=== PATIENT | female | born 1995 | race Caucasian/White ===

== ENCOUNTER 2017-10-31 16:59 | Emergency (ER) | payer OTHER ==
--- NOTE | 2017-10-31 17:43 | ED ---
General Adult HPI - General Chief complaint: Abdominal Pain Stated complaint: , pressure Time Seen by Provider: 10/31/17 17:20 Source: patient, RN notes reviewed Mode of arrival: ambulatory Limitations: no limitations - History of Present Illness Initial comments: 22 yo female presents to the ER with cc of pelvic pressure in . Patient states she is about 19 weeks . She has not had any care in this . She states she started to develop a lot of pelvic pressure today. She is a . She denies any vaginal bleeding or discharge. She denies any cough cold. There is been no nausea vomiting. She was concerned due to her continued symptoms so she thought that she should be evaluated.Patient denies any recent fever, chills, shortness of breath, chest pain, back pain, nausea vomiting, numbness or tingling, dysuria or hematuria, constipation or diarrhea, headaches or visual changes, or any other current symptoms. - Related Data Home Medications Medication Instructions Recorded Confirmed Nec-Jioz-Schbv Acid 1 cap PO DAILY 10/31/17 10/31/17 [-U Capsule (formulary)] Allergies Allergy/AdvReac Type Severity Reaction Status Date / Time No Known Allergies Allergy Verified 10/31/17 17:23 Review of Systems ROS Statement: Those systems with pertinent positive or pertinent negative responses have been documented in the HPI. ROS Other: All systems not noted in ROS Statement are negative. Past Medical History Past Medical History: No Reported History History of Any Multi-Drug Resistant Organisms: None Reported Past Surgical History: No Surgical Hx Reported Past Anesthesia/Blood Transfusion Reactions: No Reported Reaction Past Psychological History: No Psychological Hx Reported Smoking Status: Never smoker Past Alcohol Use History: None Reported Past Drug Use History: None Reported - Past Family History Mother Family Medical History: No Reported History General Exam - General Exam Comments Initial Comments: General: The patient is awake and alert, in no distress, and does not appear acutely ill. Eye: Pupils are equal, round and reactive to light, extra-ocular movements are intact; there is normal conjunctiva bilaterally. No signs of icterus. Ears, nose, mouth and throat: There are moist mucous membranes. Neck: The neck is supple, there is no tenderness. Cardiovascular: There is a regular rate and rhythm. No murmur, rub or gallop is appreciated. Respiratory: Lungs are clear to auscultation, respirations are non-labored, breath sounds are equal. No wheezes, stridor, rales, or rhonchi. Gastrointestinal: Soft, non-distended, non-tender abdomen without masses or organomegaly noted. There is no rebound or guarding present. No CVA tenderness. Bowel sounds are unremarkable. Back: There is no tenderness to palpation in the midline. There is no obvious deformity. No rashes noted. Musculoskeletal: Normal ROM, no tenderness, There is no pedal edema. There is no calf tenderness or swelling. Sensation intact. Pulses equal bilaterally 2+. Neurological: CN II-XII intact, There are no obvious motor or sensory deficits. Coordination appears grossly intact. Speech is normal. Skin: Skin is warm and dry and no rashes or lesions are noted. Psychiatric: Cooperative, appropriate mood & affect, normal judgment. Limitations: no limitations Course Vital Signs 10/31/17 17:07 Temperature 98.2 F Pulse Rate 70 Respiratory 16 Rate Blood Pressure 125/59 O2 Sat by Pulse 99 Oximetry Medical Decision Making - Medical Decision Making 22-year-old female presents for pelvic pressure in . At this time patient's lab work has been reviewed. As well as ultrasound. At this time we discussed continued follow-up with the [employer]. We will send urine for culture. Discussed return parameters all questions. Patient stated that she understood and she is agreement this plan. At this time patient will be discharged. - Lab Data Result diagrams: 10/31/17 17:55 10/31/17 18:25 Lab Results 10/31/17 10/31/17 10/31/17 Range/Units 17:55 18:03 18:25 WBC 8.0 (4.0-11.0) k/uL RBC 4.46 (3.80-5.40) m/uL Hgb 13.4 (11.4-16.0) gm/dL Hct 38.5 (34.0-46.0) % MCV 86.4 (80.0-100.0) fL MCH 30.0 (25.0-35.0) pg MCHC 34.8 (31.0-37.0) g/dL RDW 14.1 (11.5-15.5) % Plt Count 301 (150-450) k/uL Neutrophils % 82 % Lymphocytes % 12 % Monocytes % 3 % Eosinophils % 1 % Basophils % 0 % Neutrophils # 6.5 (1.3-7.7) k/uL Lymphocytes # 1.0 (1.0-4.8) k/uL Monocytes # 0.3 (0-1.0) k/uL Eosinophils # 0.1 (0-0.7) k/uL Basophils # 0.0 (0-0.2) k/uL Sodium 136 L (137-145) mmol/L Potassium 4.2 (3.5-5.1) mmol/L Chloride 103 (98-107) mmol/L Carbon Dioxide 22 (22-30) mmol/L Anion Gap 11 mmol/L BUN 8 (7-17) mg/dL Creatinine 0.52 (0.52-1.04) mg/dL Est GFR (MDRD) Af Amer >60 (>60 ml/min/1.73 sqM) Est GFR (MDRD) Non-Af >60 (>60 ml/min/1.73 sqM) Glucose 105 H (74-99) mg/dL Calcium 9.6 (8.4-10.2) mg/dL Total Bilirubin 0.2 (0.2-1.3) mg/dL AST 18 (14-36) U/L ALT 31 (9-52) U/L Alkaline Phosphatase 85 (38-126) U/L Total Protein 7.2 (6.3-8.2) g/dL Albumin 3.9 (3.5-5.0) g/dL Urine Color [place] Yellow Urine Appearance Clear (Clear) Urine pH 6.0 (5.0-8.0) Ur Specific [place] 1.005 (1.001-1.035) Urine Protein Negative (Negative) Urine Glucose (UA) Negative (Negative) Urine Ketones Negative (Negative) Urine Blood Small H (Negative) Urine Nitrite Negative (Negative) Urine Bilirubin Negative (Negative) Urine Urobilinogen <2.0 (<2.0) mg/dL Ur Leukocyte Esterase Trace H (Negative) Urine RBC 4 (0-5) /hpf Urine WBC 6 H (0-5) /hpf Ur Squamous Epith Cells 1 (0-4) /hpf Urine Mucus Rare H (None) /hpf - Radiology Data Radiology results: report reviewed, image reviewed Disposition Clinical Impression: Abdominal pain affecting Disposition: HOME SELF-CARE Condition: Stable Instructions: Abdominal Pain in (ED) Additional Instructions: Please use medication as discussed. Please follow up with family doctor if symptoms have not improved over the next two days. Please return to the emergency room if your symptoms increase or worsen or for any other concerns. Referrals: Idalmis Chang MD [STAFF PHYSICIAN] - 1-2 days Time of Disposition: 19:19
[2017-10-31 18:10] LABS: Basophils % (A) 0 %; Eosinophils # (A) 0.1 k/uL (0-0.7); Eosinophils % (A) 1 %; HCT 38.5 % (34.0-46.0); HGB 13.4 gm/dL (11.4-16.0); Lymphocytes % (A) 12 %; MCHC 34.8 g/dL (31.0-37.0); MCV 86.4 fL (80.0-100.0); Monocytes # (A) 0.3 k/uL (0-1.0); Monocytes % (A) 3 %; Neutrophils # (A) 6.5 k/uL (1.3-7.7); Neutrophils % (A) 82 %; Platelet Count 301 k/uL (150-450); RBC 4.46 m/uL (3.80-5.40); RDW 14.1 % (11.5-15.5)
[2017-10-31 18:12] LABS: Appearance,Urine Clear (Clear); Bilirubin,Urine Negative (Negative); Blood,Urine Small (Negative); Color,Urine Light Yellow; Glucose,Urine (UA) Negative (Negative); Ketones,Urine Negative (Negative); Leukocyte Esterase,Urine Trace (Negative); Mucus,Urine Rare /hpf; Nitrite,Urine Negative (Negative); Protein,Urine Negative (Negative); RBC,Urine 4 /hpf (0-5); Specific Gravity,Urine 1.005 (1.001-1.035); Squamous Epithelial Cell,Urine 1 /hpf (0-4); Urobilinogen,Urine <2.0 mg/dL (<2.0); WBC,Urine 6 /hpf (0-5)
[2017-10-31 19:02] LABS: ALT 31 U/L (9-52); AST 18 U/L (14-36); Albumin 3.9 g/dL (3.5-5.0); Alkaline Phosphatase 85 U/L (38-126); Anion Gap 11 mmol/L; Blood Urea Nitrogen 8 mg/dL (7-17); Calcium 9.6 mg/dL (8.4-10.2); Carbon Dioxide 22 mmol/L (22-30); Chloride 103 mmol/L (98-107); Glucose 105 mg/dL (74-99); Potassium 4.2 mmol/L (3.5-5.1); Sodium 136 mmol/L (137-145); Total Bilirubin 0.2 mg/dL (0.2-1.3); Total Protein 7.2 g/dL (6.3-8.2)
--- NOTE | 2017-10-31 19:12 | US ---
EXAMINATION TYPE: US OB >= 14 wk fetus DATE OF EXAM: 10/31/2017 COMPARISON: None CLINICAL HISTORY: Pain TECHNIQUE: Transabdominal (TA) GESTATIONAL AGE / DATING Physician Established: Not yet Dates by LMP: (19 weeks/1 days) EDC: 03/26/2018 Dates by First Scan: No previous this is first scan Dates by Current Scan: (19 weeks/2 days) EDC: 03/25/2018 Beta HCG (if available): Not available at this time SURVEY IUP: Single PLACENTA: Anterior PREVIA: No Previa SHIRA: 11.0 cm Normal CERVICAL LENGTH (transabdominal: norm > 3.0cm): 3.3 cm BIOMETRY PRESENTATION: Breech LIE: Longitudinal BPD: 4.34 cm 19 weeks / 1 days HC: 16.71 cm 19 weeks / 3 days AC: 14.89 cm 20 weeks / 1 days FL: 3.08 cm 19 weeks / 4 days ESTIMATED WEIGHT IN GRAMS: 313.36 grams ESTIMATED WEIGHT IN LBS/OZ: 0 lbs. 11 oz. WEIGHT PERCENTAGE BASED ON ESTABLISHED DATES: 82.2% HC/AC: 1.12 Normal FL/AC: 20.67 Normal HEART RATE: 142 bpm RHYTHM: Normal Viable IUP, measurements concordant with dates. IMPRESSION: No complicating process seen. This is the first exam.
[2017-10-31 19:25] VITALS: BP 118/58; PULSE 65; RESP 18; TEMP 98.7
[2017-10-31 19:46] LABS: HCG,Quantitative Serum 18202.9 mIU/mL
== END 2017-10-31 19:23 | disposition home or self-care (01) ==
LOC: EC 16:59
DX: O26.892 Other specified pregnancy related conditions, second trimester (principal); R10.9 Unspecified abdominal pain; Z3A.19 19 weeks gestation of pregnancy
CPT/HCPCS: 36415; 76805; 80053; 81001; 84702; 85025; 86900; 86901; 87086; 99284

== ENCOUNTER 2018-09-30 10:00 | Observation (INO) | payer OTHER ==
[2018-09-30] MEDS ORDERED: SODIUM CHLORIDE 0.9% 500 ML 500 ML IV STA (10:31)
--- NOTE | 2018-09-30 10:34 | ED ---
General Adult HPI - General Chief complaint: Abdominal Pain Stated complaint: Abd Pain,Back Pain Time Seen by Provider: 09/30/18 10:20 Source: patient, RN notes reviewed, old records reviewed Mode of arrival: ambulatory Limitations: no limitations - History of Present Illness Initial comments: 23-year-old female presenting for evaluation of suprapubic pain, bilateral flank pain and fever. Patient had temperature of 101 yesterday. She states her symptoms are similar to previous kidney infection. Denies any vaginal discharge or vaginal bleeding. Denies current . Denies dysuria. Denies vomiting or diarrhea. She is having normal bowel movements. Denies cough or URI symptoms. - Related Data Home Medications Medication Instructions Recorded Confirmed No Known Home Medications 09/30/18 09/30/18 Allergies Allergy/AdvReac Type Severity Reaction Status Date / Time No Known Allergies Allergy Verified 09/30/18 11:00 Review of Systems ROS Statement: Those systems with pertinent positive or pertinent negative responses have been documented in the HPI. ROS Other: All systems not noted in ROS Statement are negative. Past Medical History Past Medical History: No Reported History History of Any Multi-Drug Resistant Organisms: None Reported Past Surgical History: No Surgical Hx Reported Past Anesthesia/Blood Transfusion Reactions: No Reported Reaction Past Psychological History: No Psychological Hx Reported Smoking Status: Never smoker Past Alcohol Use History: None Reported Past Drug Use History: None Reported - Past Family History Mother Family Medical History: No Reported History General Exam Limitations: no limitations General appearance: alert Head exam: Present: atraumatic, normocephalic Eye exam: Present: normal appearance, PERRL ENT exam: Present: normal exam Neck exam: Present: normal inspection. Absent: tenderness, meningismus Respiratory exam: Present: normal lung sounds bilaterally, respiratory distress Cardiovascular Exam: Present: regular rate, normal rhythm GI/Abdominal exam: Present: soft, tenderness (Mild suprapubic and right lower quadrant tenderness). Absent: distended Extremities exam: Present: normal inspection Back exam: Present: CVA tenderness (R), CVA tenderness (L) Neurological exam: Present: alert, oriented X3, CN II-XII intact. Absent: motor sensory deficit Psychiatric exam: Present: normal affect, normal mood Skin exam: Present: warm, dry, intact. Absent: cyanosis, diaphoretic Course Vital Signs 09/30/18 09/30/18 10:03 12:45 Temperature 98.1 F 98.2 F Pulse Rate 89 64 Respiratory 20 18 Rate Blood Pressure 112/70 111/59 O2 Sat by Pulse 99 100 Oximetry Medical Decision Making - Medical Decision Making 23-year-old female with abdominal pain, concern for UTI and kidney infection. Patient does have some right upper quadrant tenderness and has had gallbladder issues in the past. Laboratory studies reveal a white count 10.4, AST ALT and alkaline phosphatase are elevated, she was urinary tract infection with 62 red cells and bacteria. Cultures pending. Ultrasound of the gallbladder is obtained which shows cholelithiasis, no dilatation of the gallbladder wall or common bile duct. Case is discussed with Dr. Chavez, patient will be admitted to internal medicine with general surgery on consult. Diagnosis: Symptomatically lithiasis, transaminitis, UTI - Lab Data Result diagrams: 09/30/18 10:11 09/30/18 10:11 Lab Results 09/30/18 09/30/18 09/30/18 Range/Units 10:11 10:11 10:11 WBC 10.4 (3.8-10.6) k/uL RBC 4.55 (3.80-5.40) m/uL Hgb 11.3 L (11.4-16.0) gm/dL Hct 35.4 (34.0-46.0) % MCV 77.7 L (80.0-100.0) fL MCH 24.8 L (25.0-35.0) pg MCHC 31.9 (31.0-37.0) g/dL RDW 14.9 (11.5-15.5) % Plt Count 377 (150-450) k/uL Neutrophils % 84 % Lymphocytes % 9 % Monocytes % 5 % Eosinophils % 1 % Basophils % 0 % Neutrophils # 8.7 H (1.3-7.7) k/uL Lymphocytes # 0.9 L (1.0-4.8) k/uL Monocytes # 0.5 (0-1.0) k/uL Eosinophils # 0.1 (0-0.7) k/uL Basophils # 0.0 (0-0.2) k/uL Sodium 141 (137-145) mmol/L Potassium 4.0 (3.5-5.1) mmol/L Chloride 106 (98-107) mmol/L Carbon Dioxide 23 (22-30) mmol/L Anion Gap 12 mmol/L BUN 15 (7-17) mg/dL Creatinine 0.69 (0.52-1.04) mg/dL Est GFR (CKD-EPI)AfAm >90 (>60 ml/min/1.73 sqM) Est GFR (CKD-EPI)NonAf >90 (>60 ml/min/1.73 sqM) Glucose 99 (74-99) mg/dL Calcium 9.5 (8.4-10.2) mg/dL Total Bilirubin 1.0 (0.2-1.3) mg/dL AST 133 H (14-36) U/L ALT 147 H (9-52) U/L Alkaline Phosphatase 165 H (38-126) U/L Total Protein 7.9 (6.3-8.2) g/dL Albumin 4.3 (3.5-5.0) g/dL Amylase 46 (30-110) U/L Lipase 37 (23-300) U/L Urine Color [place] Urine Appearance Cloudy H (Clear) Urine pH 6.0 (5.0-8.0) Ur Specific [place] 1.026 (1.001-1.035) Urine Protein 1+ H (Negative) Urine Glucose (UA) Negative (Negative) Urine Ketones Negative (Negative) Urine Blood Small H (Negative) Urine Nitrite Negative (Negative) Urine Bilirubin Negative (Negative) Urine Urobilinogen 4.0 (<2.0) mg/dL Ur Leukocyte Esterase Large H (Negative) Urine RBC 6 H (0-5) /hpf Urine WBC 62 H (0-5) /hpf Ur Squamous Epith Cells 16 H (0-4) /hpf Urine Bacteria Occasional H (None) /hpf Urine Mucus Many H (None) /hpf Urine HCG, Qual (Not Detectd) 09/30/18 Range/Units 10:11 WBC (3.8-10.6) k/uL RBC (3.80-5.40) m/uL Hgb (11.4-16.0) gm/dL Hct (34.0-46.0) % MCV (80.0-100.0) fL MCH (25.0-35.0) pg MCHC (31.0-37.0) g/dL RDW (11.5-15.5) % Plt Count (150-450) k/uL Neutrophils % % Lymphocytes % % Monocytes % % Eosinophils % % Basophils % % Neutrophils # (1.3-7.7) k/uL Lymphocytes # (1.0-4.8) k/uL Monocytes # (0-1.0) k/uL Eosinophils # (0-0.7) k/uL Basophils # (0-0.2) k/uL Sodium (137-145) mmol/L Potassium (3.5-5.1) mmol/L Chloride (98-107) mmol/L Carbon Dioxide (22-30) mmol/L Anion Gap mmol/L BUN (7-17) mg/dL Creatinine (0.52-1.04) mg/dL Est GFR (CKD-EPI)AfAm (>60 ml/min/1.73 sqM) Est GFR (CKD-EPI)NonAf (>60 ml/min/1.73 sqM) Glucose (74-99) mg/dL Calcium (8.4-10.2) mg/dL Total Bilirubin (0.2-1.3) mg/dL AST (14-36) U/L ALT (9-52) U/L Alkaline Phosphatase (38-126) U/L Total Protein (6.3-8.2) g/dL Albumin (3.5-5.0) g/dL Amylase (30-110) U/L Lipase (23-300) U/L Urine Color Urine Appearance (Clear) Urine pH (5.0-8.0) Ur Specific [place] (1.001-1.035) Urine Protein (Negative) Urine Glucose (UA) (Negative) Urine Ketones (Negative) Urine Blood (Negative) Urine Nitrite (Negative) Urine Bilirubin (Negative) Urine Urobilinogen (<2.0) mg/dL Ur Leukocyte Esterase (Negative) Urine RBC (0-5) /hpf Urine WBC (0-5) /hpf Ur Squamous Epith Cells (0-4) /hpf Urine Bacteria (None) /hpf Urine Mucus (None) /hpf Urine HCG, Qual Not Detected (Not Detectd) Disposition Clinical Impression: Symptomatic cholelithiasis, Transaminitis Disposition: ADMITTED IP TO THIS [facility] Condition: Stable Is patient prescribed a controlled substance at d/c from ED?: No Referrals: None,Stated [Primary Care Provider] - 1-2 days Decision to Admit Reason: Admit from EC Decision Date: 09/30/18 Decision Time: 13:50
[2018-09-30] MEDS ORDERED: KETOROLAC 30 MG/ML 1 ML VIAL IVP STA (10:47)
[2018-09-30 11:08] LABS: Basophils % (A) 0 %; Eosinophils # (A) 0.1 k/uL (0-0.7); Eosinophils % (A) 1 %; HCT 35.4 % (34.0-46.0); HGB 11.3 gm/dL (11.4-16.0); Lymphocytes # (A) 0.9 k/uL (1.0-4.8); Lymphocytes % (A) 9 %; MCH 24.8 pg (25.0-35.0); MCHC 31.9 g/dL (31.0-37.0); MCV 77.7 fL (80.0-100.0); Mean Platelet Volume 6.6; Monocytes # (A) 0.5 k/uL (0-1.0); Monocytes % (A) 5 %; Neutrophils # (A) 8.7 k/uL (1.3-7.7); Neutrophils % (A) 84 %; Platelet Count 377 k/uL (150-450); RBC 4.55 m/uL (3.80-5.40); RDW 14.9 % (11.5-15.5); WBC 10.4 k/uL (3.8-10.6)
[2018-09-30 11:13] LABS: Appearance,Urine Cloudy (Clear); Bacteria,Urine Occasional /hpf; Bilirubin,Urine Negative (Negative); Blood,Urine Small (Negative); Color,Urine Orange; Glucose,Urine (UA) Negative (Negative); Ketones,Urine Negative (Negative); Leukocyte Esterase,Urine Large (Negative); Mucus,Urine Many /hpf; Nitrite,Urine Negative (Negative); Protein,Urine 1+ (Negative); RBC,Urine 6 /hpf (0-5); Specific Gravity,Urine 1.026 (1.001-1.035); Squamous Epithelial Cell,Urine 16 /hpf (0-4); WBC,Urine 62 /hpf (0-5)
[2018-09-30 11:19] LABS: ALT 147 U/L (9-52); AST 133 U/L (14-36); Albumin 4.3 g/dL (3.5-5.0); Alkaline Phosphatase 165 U/L (38-126); Amylase 46 U/L (30-110); Anion Gap 12 mmol/L; Blood Urea Nitrogen 15 mg/dL (7-17); Calcium 9.5 mg/dL (8.4-10.2); Carbon Dioxide 23 mmol/L (22-30); Chloride 106 mmol/L (98-107); Glucose 99 mg/dL (74-99); Lipase 37 U/L (23-300); Sodium 141 mmol/L (137-145); Total Protein 7.9 g/dL (6.3-8.2)
--- NOTE | 2018-09-30 12:41 | US ---
EXAMINATION TYPE: US gallbladder DATE OF EXAM: 09/30/2018 COMPARISON: US CLINICAL HISTORY: Pain. Pt states generalized ABD pain EXAM MEASUREMENTS: Liver Length: 16.0 cm Gallbladder Wall: 0.3 cm CBD: 0.3 cm Right Kidney: 10.1 x 3.8 x 4.3 cm Pancreas: wnl Liver: Cystic area seen left posterior lobe= 1.9 x 1.3 x 1.3 cm ?etiology Gallbladder: Multiple gallstones filling lumen Evidence for sonographic Galaviz's sign: No CBD: wnl Right Kidney: wnl IMPRESSION: 1. Uncomplicated cholelithiasis. 2. Hepatic cyst.
--- NOTE | 2018-09-30 12:42 | US ---
EXAMINATION TYPE: US transvaginal DATE OF EXAM: 09/30/2018 COMPARISON: OB only CLINICAL HISTORY: Pain. Pt states lower ABD pain TECHNIQUE: Transvaginal (TV). Transvaginal sonographic images of the pelvis were acquired. Date of LMP: 09/18/2018 EXAM MEASUREMENTS: Uterus: 10.7 x 4.2 x 5.3 cm Endometrial Stripe: 0.6 cm Right Ovary: 3.2 x 2.7 x 2.4 cm Left Ovary: 3.2 x 2.0 x 2.5 cm 1. Uterus: Anteverted wnl 2. Endometrium: wnl 3. Right Ovary: Dominant follicle= 1.7 x 1.7 x 1.9 cm 4. Left Ovary: wnl Spectral, color and waveform doppler imaging shows good arterial and venous flow within the ovaries ; there is no evidence for ovarian torsion. 5. Bilateral Adnexa: wnl 6. Posterior cul-de-sac: wnl IMPRESSION: 1. Dominant right ovarian follicle. Otherwise unremarkable study.
[2018-09-30] MEDS ORDERED: SODIUM CHLORIDE 0.9% 500 ML 500 ML IV ONE (13:50)
[2018-09-30] MEDS ORDERED: NALOXONE 0.4 MG/ML 1 ML VIAL IV PRN (13:51)
[2018-09-30] MEDS ORDERED: HYDROmorphone 1 MG/ML 1 ML SYRINGE IVP PRN (13:51)
[2018-09-30] MEDS: SODIUM CHLORIDE 0.9% 1,000 ML IV SCH ×3 (14:31→22:08)
--- NOTE | 2018-09-30 16:58 | P.HPIM ---
History of Present Illness Patient is a very pleasant 23-year-old female came in with complains of right lower quadrant abdominal pain 8/10 in severity has been going on for last 5 days progressively worsening. Patient denied any suprapubic pain patient does not have any costo-vertebral angle tenderness. Patient denied any fever chills. Ultrasound of the abdomen was obtained which showed cholelithiasis. No evidence of cholecystitis and on the ultrasound. Pelvic ultrasound was obtained, which showed normal ovarian follicle non uterus. I'll obtain a CAT scan of the abdomen after urine beta-hCG. Patient pain is mostly in the right lower quadrant. Patient does have mildly elevated liver enzymes as well which will be repeated tomorrow. General surgery was consulted. Patient was started on Rocephin because of abnormal uterine patient denied any dysuria, increased urinary frequency or urgency or suprapubic pain, patient urine has a significance, 7 epithelial cells consistent with contaminated urine sample. Abdominal pain is severe and that not related to food. On and off constant Review of Systems REVIEW OF SYSTEMS: CONSTITUTIONAL: No fever, no malaise, no fatigue. HEENT: No recent visual problems or hearing problems. Denied any sore throat. CARDIOVASCULAR: No chest pain, orthopnea, PND, no palpitations, no syncope. PULMONARY: No shortness of breath, no cough, no hemoptysis. GASTROINTESTINAL: As mentioned in HPI NEUROLOGICAL: No headaches, no weakness, no numbness. HEMATOLOGICAL: Denies any bleeding or petechiae. GENITOURINARY: Denies any burning micturition, frequency, or urgency. MUSCULOSKELETAL/RHEUMATOLOGICAL: Denies any joint pain, swelling, or any muscle pain. ENDOCRINE: Denies any polyuria or polydipsia. The rest of the 14-point review of systems is negative. Past Medical History Past Medical History: No Reported History Additional Past Medical History / Comment(s): past uti/kidney infection approx years ago(was hospitalized) History of Any Multi-Drug Resistant Organisms: None Reported Past Surgical History: No Surgical Hx Reported Additional Past Surgical History / Comment(s): no report of surguries,has never had general aa Past Anesthesia/Blood Transfusion Reactions: No Reported Reaction Additional Past Anesthesia/Blood Transfusion Reaction / Comment(s): has never had aa Smoking Status: Never smoker - Past Family History Father History Unknown: Yes Mother Family Medical History: No Reported History Additional Family Medical History / Comment(s): gallbladder issues Medications and Allergies Home Medications Medication Instructions Recorded Confirmed Type No Known Home Medications 09/30/18 09/30/18 History Allergies Allergy/AdvReac Type Severity Reaction Status Date / Time No Known Allergies Allergy Verified 09/30/18 11:00 Physical Exam Vitals: Vital Signs Temp Pulse Pulse Resp BP BP Pulse Ox 09/30/18 15:27 98.2 F 67 16 100/64 98 09/30/18 14:34 97.6 F 69 16 105/58 99 09/30/18 12:45 98.2 F 64 18 111/59 100 09/30/18 10:03 98.1 F 89 20 112/70 99 Intake and Output 09/30/18 09/30/18 09/30/18 06:59 14:59 22:59 Other: Weight 72.575 kg PHYSICAL EXAMINATION: GENERAL: The patient is alert and oriented x3, not in any acute distress. Well developed, well nourished. HEENT: Pupils are round and equally reacting to light. EOMI. No scleral icterus. No conjunctival pallor. Normocephalic, atraumatic. No pharyngeal erythema. No thyromegaly. CARDIOVASCULAR: S1 and S2 present. No murmurs, rubs, or gallops. PULMONARY: Chest is clear to auscultation, no wheezing or crackles. ABDOMEN: Soft, tenderness in the right lower quadrant MUSCULOSKELETAL: No joint swelling or deformity. EXTREMITIES: No cyanosis, clubbing, or pedal edema. NEUROLOGICAL: Gross neurological examination did not reveal any focal deficits. SKIN: No rashes. Results CBC & Chem 7: 09/30/18 10:11 09/30/18 10:11 Labs: Abnormal Lab Results - Last 24 Hours (Table) 09/30/18 09/30/18 09/30/18 Range/Units 10:11 10:11 10:11 Hgb 11.3 L (11.4-16.0) gm/dL MCV 77.7 L (80.0-100.0) fL MCH 24.8 L (25.0-35.0) pg Neutrophils # 8.7 H (1.3-7.7) k/uL Lymphocytes # 0.9 L (1.0-4.8) k/uL AST 133 H (14-36) U/L ALT 147 H (9-52) U/L Alkaline Phosphatase 165 H (38-126) U/L Urine Appearance Cloudy H (Clear) Urine Protein 1+ H (Negative) Urine Blood Small H (Negative) Ur Leukocyte Esterase Large H (Negative) Urine RBC 6 H (0-5) /hpf Urine WBC 62 H (0-5) /hpf Ur Squamous Epith Cells 16 H (0-4) /hpf Urine Bacteria Occasional H (None) /hpf Urine Mucus Many H (None) /hpf Thrombosis Risk Factor Assmnt - Choose All That Apply Any of the Below Risk Factors Present?: Yes Each Factor Represents 1 point: Obesity (BMI >25) Other Risk Factors: Yes Thrombosis Risk Factor Assessment Total Risk Factor Score: 1 Thrombosis Risk Factor Assessment Level: Low Risk Assessment and Plan Plan: -Right lower quadrant abdominal pain obtain a CAT scan of the abdomen DID SHOW CHOLELITHIASIS NOT SURE IF THIS IS AN INCIDENTAL FINDING ALTHOUGH PATIENT DOES HAVE ELEVATED AST ELEVATED ALKALINE PHOSPHATASE. WE'LL REPEAT THESE LIVER ENZYMES AGAIN TOMORROW. NEUROSURGERY WILL EVALUATE THE PATIENT. Abdominal pain is not typical for cholelithiasis -Mildly elevated liver enzymes Related to Cholelithiasis and Has Gallstone We' ll Repeat These Levels and Make Sure They're Not Going up Balloon Is 1.0 -Contaminated Urine Sample My Suspicion for Urinary Tract Infection Is Low since.Etiology of Her Abdominal Pain Is Not Clear Will Continue with Antibiotics for Now
[2018-09-30] MEDS: IOPAMIDOL-300 CONTRAST 30 ML VIAL (ORAL USE) PO PRN ×2 (17:07→17:59)
[2018-09-30] MEDS: PANTOPRAZOLE 40 MG/10 ML VIAL IVP SCH (17:08)
[2018-09-30] MEDS: KETOROLAC 30 MG/ML 1 ML VIAL IVP PRN (17:58)
--- NOTE | 2018-09-30 19:59 | P.GSCN ---
History of Present Illness Consult date: 09/30/18 History of present illness: Patient reports known history of gallstones 3 years ago. Abdominal pain had gone worse after the of her son 6 months ago. Patient's incision to the ER was from severe right upper quadrant and epigastric abdominal pain greater than 7-10. Since admission, pain improved. Patient also presents with elevated transaminases. Patient's family history of gallbladder disease. Recommend repeat liver enzymes. For elevated enzymes, then will need evaluation MRCP followed by GI for ERCP. Cholecystectomy potential as outpatient should liver enzymes normalized. Low-fat diet tonight. Past Medical History Past Medical History: No Reported History Additional Past Medical History / Comment(s): past uti/kidney infection approx years ago(was hospitalized) History of Any Multi-Drug Resistant Organisms: None Reported Past Surgical History: No Surgical Hx Reported Additional Past Surgical History / Comment(s): no report of surguries,has never had general aa Past Anesthesia/Blood Transfusion Reactions: No Reported Reaction Additional Past Anesthesia/Blood Transfusion Reaction / Comm: has never had aa Smoking Status: Never smoker - Past Family History Father History Unknown: Yes Mother Family Medical History: No Reported History Additional Family Medical History / Comment(s): gallbladder issues Medications and Allergies Home Medications Medication Instructions Recorded Confirmed Type No Known Home Medications 09/30/18 09/30/18 History Allergies Allergy/AdvReac Type Severity Reaction Status Date / Time No Known Allergies Allergy Verified 09/30/18 11:00 Surgical - Exam Vital Signs Temp Pulse Resp BP Pulse Ox 98.1 F 89 20 112/70 99 09/30/18 10:03 09/30/18 10:03 09/30/18 10:03 09/30/18 10:03 09/30/18 10:03 Results - Labs 09/30/18 10:11 09/30/18 10:11 Abnormal Lab Results - Last 24 Hours (Table) 09/30/18 09/30/18 09/30/18 Range/Units 10:11 10:11 10:11 Hgb 11.3 L (11.4-16.0) gm/dL MCV 77.7 L (80.0-100.0) fL MCH 24.8 L (25.0-35.0) pg Neutrophils # 8.7 H (1.3-7.7) k/uL Lymphocytes # 0.9 L (1.0-4.8) k/uL AST 133 H (14-36) U/L ALT 147 H (9-52) U/L Alkaline Phosphatase 165 H (38-126) U/L Urine Appearance Cloudy H (Clear) Urine Protein 1+ H (Negative) Urine Blood Small H (Negative) Ur Leukocyte Esterase Large H (Negative) Urine RBC 6 H (0-5) /hpf Urine WBC 62 H (0-5) /hpf Ur Squamous Epith Cells 16 H (0-4) /hpf Urine Bacteria Occasional H (None) /hpf Urine Mucus Many H (None) /hpf Microbiology - Last 24 Hours (Table) 09/30/18 10:11 Urine Culture - Preliminary Urine,Voided Diabetes panel 09/30/18 Range/Units 10:11 Sodium 141 (137-145) mmol/L Potassium 4.0 (3.5-5.1) mmol/L Chloride 106 (98-107) mmol/L Carbon Dioxide 23 (22-30) mmol/L BUN 15 (7-17) mg/dL Creatinine 0.69 (0.52-1.04) mg/dL Glucose 99 (74-99) mg/dL Calcium 9.5 (8.4-10.2) mg/dL AST 133 H (14-36) U/L ALT 147 H (9-52) U/L Alkaline Phosphatase 165 H (38-126) U/L Total Protein 7.9 (6.3-8.2) g/dL Albumin 4.3 (3.5-5.0) g/dL Calcium panel 09/30/18 Range/Units 10:11 Calcium 9.5 (8.4-10.2) mg/dL Albumin 4.3 (3.5-5.0) g/dL Pituitary panel 09/30/18 Range/Units 10:11 Sodium 141 (137-145) mmol/L Potassium 4.0 (3.5-5.1) mmol/L Chloride 106 (98-107) mmol/L Carbon Dioxide 23 (22-30) mmol/L BUN 15 (7-17) mg/dL Creatinine 0.69 (0.52-1.04) mg/dL Glucose 99 (74-99) mg/dL Calcium 9.5 (8.4-10.2) mg/dL Adrenal panel 12/05/18 Range/Units 10:11 Sodium 141 (137-145) mmol/L Potassium 4.0 (3.5-5.1) mmol/L Chloride 106 (98-107) mmol/L Carbon Dioxide 23 (22-30) mmol/L BUN 15 (7-17) mg/dL Creatinine 0.69 (0.52-1.04) mg/dL Glucose 99 (74-99) mg/dL Calcium 9.5 (8.4-10.2) mg/dL Total Bilirubin 1.0 (0.2-1.3) mg/dL AST 133 H (14-36) U/L ALT 147 H (9-52) U/L Alkaline Phosphatase 165 H (38-126) U/L Total Protein 7.9 (6.3-8.2) g/dL Albumin 4.3 (3.5-5.0) g/dL
--- NOTE | 2018-09-30 20:50 | CT ---
EXAMINATION TYPE: CT abdomen pelvis w con DATE OF EXAM: 09/30/2018 COMPARISON: None HISTORY: right sided abdominal pain CT DLP: 627.9 mGycm Automated exposure control for dose reduction was used. TECHNIQUE: Helical acquisition of images was performed from the lung bases through the pelvis. CONTRAST: Performed with Oral Contrast and with IV Contrast, patient injected with 100 mL of Isovue 300. FINDINGS: Lung bases are clear. There is no pleural effusion. Heart size is normal. Stomach appears normal. There are multiple cholesterol gallstones. Liver appears normal. Bile ducts are not dilated. Spleen a ppears normal. There is no pancreatic mass. There is no adrenal mass. Kidneys show satisfactory contrast opacification. There is some fullness of the renal collecting systems and more on the right side. Renal function appears normal. Bladder distends smoothly. Uterus is anteverted. There is no inguinal hernia. There is small amount o f free fluid in the cul-de-sac. There are no adnexal masses. There is minimal fat stranding in the om entum and mesenteric fat in the lower anterior abdomen. The terminal ileum appears normal. Cecum is i n a high position. The appendix appears normal. There is no sign of appendicitis. There is minimal wa ll thickening of some loops of small bowel at the midline lower abdomen above the uterine fundus. The re is tiny amount of fluid in the right paracolic gutter. There is no mesenteric adenopathy. I see no evidence of a bowel obstruction. IMPRESSION: THERE IS MILD FREE FLUID IN THE PELVIS. THERE IS SOME FAT STRANDING AND MILD WALL THICKENING OF SMALL BOWEL ADJACENT TO THE UTERINE FUNDUS. I WOULD CONSIDER POSSIBILITIES OF LOCALIZED INFLAMMATORY BOWEL DISEASE SUCH CROHN'S DISEASE. PID IS ALSO POSSIBLE.
[2018-10-01] MEDS: SODIUM CHLORIDE 0.9% 1,000 ML IV SCH ×2 (00:47→18:34)
[2018-10-01] MEDS: KETOROLAC 30 MG/ML 1 ML VIAL IVP PRN ×4 (04:01→21:31)
[2018-10-01 08:52] LABS: ALT 145 U/L (9-52); AST 100 U/L (14-36); Alkaline Phosphatase 147 U/L (38-126); Amylase 36 U/L (30-110); Anion Gap 5 mmol/L; Blood Urea Nitrogen 9 mg/dL (7-17); Calcium 8.5 mg/dL (8.4-10.2); Carbon Dioxide 24 mmol/L (22-30); Chloride 112 mmol/L (98-107); Glucose 84 mg/dL (74-99); Lipase 42 U/L (23-300); Potassium 4.1 mmol/L (3.5-5.1); Sodium 141 mmol/L (137-145); Total Bilirubin 0.5 mg/dL (0.2-1.3)
--- NOTE | 2018-10-01 09:16 | P.CONS ---
History of Present Illness - Reason for Consult Consult date: 10/01/18 elevated liver enzymes Requesting physician: Yomaira Miller - Chief Complaint Abdominal pain - History of Present Illness 23-year-old female 6 months admitted with acute abdominal pain right upper quadrant 2 days elevated liver enzymes with nausea and fever. Patient had heartburn type symptoms when she was but no significant abdominal pain. Ultrasound abdomen uncomplicated cholelithiasis. CBD within normal limits. CT abdomen mild free fluid in the pelvis and fat stranding and mild thickening of the small bowel adjacent to the uterine fundus possible localized IBD possible pelvic inflammatory disease. No personal a familial history of inflammatory bowel disease. Nice diarrhea. Denies any emesis medications he melena. No abnormal vaginal discharge. She has been afebrile. White count 10.4. Hemoglobin 11.3. Platelets 377. Total bilirubin 0.5-1.0. AST 100-133. ALT 145-147. AP 147-165. Lipase 37-42. LFTs have improved today. Abdominal pain improved but still present. History of IVDA, EtOH abuse, changes in medications, or hepatitis/liver disorders. Transvaginal ultrasound dominant right ovarian follicle otherwise unremarkable study. Review of Systems Constitutional: Denies fever, chills, sweats, weight gain, or loss. HEENT: Negative for migraines, blurred vision or loss, earaches, drainage, tinnitus, oral mucosal lesions, dysphagia, or odynophagia. CARDIAC: Negative for chest pain, arrhythmias, or palpitation. RESPIRATORY: Negative for shortness of breath, hemoptysis, cough, or sputum production. GI: See HPI for pertinent findings. : Negative for hematuria, urgency, frequency, polyuria, or dysuria. GYNc: Denies possibility of . Negative vaginal discharge. MUSCULOSKELETAL: Negative for muscle aches, swelling, arthritis, and arthralgias. NEUROLOGIC: Negative for stroke or TIA. ENDOCRINE: Negative for thyroid problems. SKIN: Negative for rash or itching. PSYCHIATRIC: Negative history for depression and anxiety Past Medical History Past Medical History: No Reported History Additional Past Medical History / Comment(s): past uti/kidney infection approx years ago(was hospitalized) History of Any Multi-Drug Resistant Organisms: None Reported Past Surgical History: No Surgical Hx Reported Additional Past Surgical History / Comment(s): no report of surguries,has never had general aa Past Anesthesia/Blood Transfusion Reactions: No Reported Reaction Additional Past Anesthesia/Blood Transfusion Reaction / Comm: has never had aa Smoking Status: Never smoker - Past Family History Father History Unknown: Yes Mother Family Medical History: No Reported History Additional Family Medical History / Comment(s): gallbladder issues Medications and Allergies Home Medications Medication Instructions Recorded Confirmed Type No Known Home Medications 09/30/18 09/30/18 History Allergies Allergy/AdvReac Type Severity Reaction Status Date / Time No Known Allergies Allergy Verified 09/30/18 11:00 Physical Exam Vitals: Vital Signs Temp Pulse Pulse Resp BP BP Pulse Ox 10/01/18 03:57 98.3 F 85 18 109/65 100 09/30/18 19:43 98.2 F 62 16 115/65 97 09/30/18 15:27 98.2 F 67 16 100/64 98 09/30/18 14:34 97.6 F 69 16 105/58 99 09/30/18 12:45 98.2 F 64 18 111/59 100 09/30/18 10:03 98.1 F 89 20 112/70 99 Intake and Output 09/30/18 10/01/18 10/01/18 22:59 06:59 14:59 Other: Voiding Method Toilet General appearance: The patient is alert, oriented, in no acute distress. HET: Head is normocephalic and atraumatic. Pupils are equal and reactive. Oropharynx is clear without lesions. Neck: Supple without lymphadenopathy. Trachea midline. Heart: S1 S2. Regular rate and rhythm. Lungs: No crackles or wheezes are heard. Abdomen: Soft, mild right upper quadrant tenderness, nondistended with bowel sounds. No peritoneal signs. No palpable organomegaly or masses. Extremities: Normal skin color and turgor. No cyanosis, rash, ulceration, clubbing, or edema. Radial and pedal pulses are 2/4 bilaterally. Neurological: No focal deficits. Strength and sensation are grossly intact. Results CBC & Chem 7: 10/02/18 10:37 10/02/18 10:37 Labs: Abnormal Lab Results - Last 24 Hours (Table) 09/30/18 09/30/18 09/30/18 Range/Units 10:11 10:11 10:11 Hgb 11.3 L (11.4-16.0) gm/dL MCV 77.7 L (80.0-100.0) fL MCH 24.8 L (25.0-35.0) pg Neutrophils # 8.7 H (1.3-7.7) k/uL Lymphocytes # 0.9 L (1.0-4.8) k/uL Chloride (98-107) mmol/L AST 133 H (14-36) U/L ALT 147 H (9-52) U/L Alkaline Phosphatase 165 H (38-126) U/L Total Protein (6.3-8.2) g/dL Albumin (3.5-5.0) g/dL Urine Appearance Cloudy H (Clear) Urine Protein 1+ H (Negative) Urine Blood Small H (Negative) Ur Leukocyte Esterase Large H (Negative) Urine RBC 6 H (0-5) /hpf Urine WBC 62 H (0-5) /hpf Ur Squamous Epith Cells 16 H (0-4) /hpf Urine Bacteria Occasional H (None) /hpf Urine Mucus Many H (None) /hpf 10/01/18 Range/Units 08:15 Hgb (11.4-16.0) gm/dL MCV (80.0-100.0) fL MCH (25.0-35.0) pg Neutrophils # (1.3-7.7) k/uL Lymphocytes # (1.0-4.8) k/uL Chloride 112 H (98-107) mmol/L AST 100 H (14-36) U/L ALT 145 H (9-52) U/L Alkaline Phosphatase 147 H (38-126) U/L Total Protein 6.0 L (6.3-8.2) g/dL Albumin 3.0 L (3.5-5.0) g/dL Urine Appearance (Clear) Urine Protein (Negative) Urine Blood (Negative) Ur Leukocyte Esterase (Negative) Urine RBC (0-5) /hpf Urine WBC (0-5) /hpf Ur Squamous Epith Cells (0-4) /hpf Urine Bacteria (None) /hpf Urine Mucus (None) /hpf Microbiology - Last 24 Hours (Table) 09/30/18 10:11 Urine Culture - Preliminary Urine,Voided CT scan - abdomen: report reviewed (Dr. Redding) US - abdomen: report reviewed (Dr. Redding) Assessment and Plan (1) Abdominal pain Narrative/Plan: 23-year-old female with a history of cholelithiasis admitted with acute right upper quadrant abdominal pain 2 days with elevated transaminases and normal bilirubin possible underlying choledocholithiasis. CT abdomen and pelvis reported fat stranding and mild wall thickening of small bowel adjacent to the uterine fundus possible localized infiltrative bowel disease possible pelvic inflammatory disease. Current Visit: Yes Status: Acute Code(s): R10.9 - UNSPECIFIED ABDOMINAL PAIN SNOMED Code(s): 23686960 (2) Elevated liver enzymes Current Visit: Yes Status: Acute Code(s): R74.8 - ABNORMAL LEVELS OF OTHER SERUM ENZYMES SNOMED Code(s): 542398477 (3) Cholelithiasis Current Visit: Yes Status: Acute Code(s): K80.20 - CALCULUS OF GALLBLADDER W /O CHOLECYSTITIS W/O OBSTRUCTION SNOMED Code(s): 560862342 Plan: 1. Hepatitis panel. MRCP. Daily CMP CBC. ERCP contingent on MRI findings. Will follow closely with you. Thank you for this kind referral and the opportunity to participate in the care of your patient. This consultation was discussed with Dr. Redding. The impression and plan of care have been directed as dictated.
[2018-10-01] MEDS: PANTOPRAZOLE 40 MG/10 ML VIAL IVP SCH (09:17)
[2018-10-01] MEDS ORDERED: ONDANSETRON 4 MG/2 ML VIAL IVP PRN (15:25)
--- NOTE | 2018-10-01 15:42 | P.PN ---
Subjective Progress Note Date: 10/01/18 Progress note being dictated for Dr. Miller Interval history:Patient is a very pleasant 23-year-old female came in with complains of right lower quadrant abdominal pain 8/10 in severity has been going on for last 5 days progressively worsening. Patient denied any suprapubic pain patient does not have any costo-vertebral angle tenderness. Patient denied any fever chills. Ultrasound of the abdomen was obtained which showed cholelithiasis. No evidence of cholecystitis and on the ultrasound. Pelvic ultrasound was obtained, which showed normal ovarian follicle non uterus. I'll obtain a CAT scan of the abdomen after urine beta- hCG. Patient pain is mostly in the right lower quadrant. Patient does have mildly elevated liver enzymes as well which will be repeated tomorrow. General surgery was consulted. Patient was started on Rocephin because of abnormal uterine patient denied any dysuria, increased urinary frequency or urgency or suprapubic pain, patient urine has a significance, 7 epithelial cells consistent with contaminated urine sample. Abdominal pain is severe and that not related to food. On and off constant. 10/01/2018 CT reported multiple cholesterol gallstones ,mild free fluid in the pelvis and fat stranding, thickening of the small bowel adjacent to the uterine fundus possibly localized IBD, possible endometriosis .evaluated by both surgery and GI. Scheduled for MRCP today. Pain better controlled today, reporting between right upper and lower abdominal quadrants. LFTs improving. Potential cholecystectomy, OP. Denies chest pain, palpitations or increasing shortness of breath. Afebrile tolerated low-fat diet last night and earlier with no nausea vomiting or diarrhea. Positive bilious appearing BM. UA noted, denies urinary symptoms, no frequency or urgency, no burning. Objective - Vital Signs Vital signs: Vital Signs Temp 98.3 F 10/01/18 07:55 Pulse 79 10/01/18 07:55 Resp 16 10/01/18 07:55 BP 111/64 10/01/18 07:55 Pulse Ox 100 10/01/18 07:55 Intake & Output 09/30/18 10/01/18 10/01/18 18:59 06:59 18:59 Weight 72.575 kg Other: Voiding Method Toilet # Voids 1 # Bowel Movements 1 - Exam GENERAL: The patient is alert and oriented x3, no acute distress. HEENT: Pupils are round and equally reacting to light. EOMI. No scleral icterus. No conjunctival pallor. Normocephalic, atraumatic. Oral mucosa moist CARDIOVASCULAR: S1 and S2 present. No murmurs, rubs, or gallops. PULMONARY: Chest is clear to auscultation, no wheezing or crackles. ABDOMEN: Soft, nondistended, tenderness in the right mid between upper and lower quadrants positive bowel sounds, MUSCULOSKELETAL: No joint swelling or deformity. EXTREMITIES: No cyanosis, clubbing, or pedal edema. NEUROLOGICAL: Gross neurological examination did not reveal any focal deficits. SKIN: No rashes. - Labs CBC & Chem 7: 09/30/18 10:11 10/01/18 08:15 Labs: Abnormal Lab Results - Last 24 Hours (Table) 10/01/18 Range/Units 08:15 Chloride 112 H (98-107) mmol/L AST 100 H (14-36) U/L ALT 145 H (9-52) U/L Alkaline Phosphatase 147 H (38-126) U/L Total Protein 6.0 L (6.3-8.2) g/dL Albumin 3.0 L (3.5-5.0) g/dL Microbiology - Last 24 Hours (Table) 09/30/18 10:11 Urine Culture - Preliminary Urine,Voided Assessment and Plan Assessment: -Right mid between upper and lower quadrants abdominal pain .CT reported CHOLELITHIASIS. -Mildly elevated liver enzymes Related to Cholelithiasis and Has Gallstone . -Contaminated Urine Sample My Suspicion for Urinary Tract Infection Is low. Asymptomatic. Plan: Continue on current medication regime ,monitoring and symptomatic treatment. Maintain IV antibiotics .Now NPO , MRCP/ERCP pending. Potential outpatient cholecystectomy with surgery. Urine culture pending. The impression and plan of care has been dictated as directed. : I performed a history and examination of this patient, discussed the same with the dictator. I agree with the dictator's note ,documented as a scribe. Any additional findings or plans will be noted.
--- NOTE | 2018-10-01 15:55 | MR ---
EXAMINATION TYPE: MR MRCP DATE OF EXAM: 10/01/2018 COMPARISON: CT abdomen and pelvis dated 09/30/2018 HISTORY: Rt sided abdominal pain, elevated liver enzymes, R/O CBD stone TECHNIQUE: Multiplanar, multisequence images of the abdomen were acquired without contrast using time -of-flight imaging per MRCP protocol. FINDINGS: Exam is slightly limited by patient motion. The common hepatic duct is within normal limits of size measuring 4 mm. Common bile duct is also with in normal limits of size measuring 4 mm. There is no evidence of signal dropout within the hepatic pa renchyma on out of phase imaging to suggest hepatic steatosis. There are numerous cholesterol contain ing gallstones filling the gallbladder extending from the gallbladder fundus through the body to the gallbladder neck. There is mild circumferential periportal edema no choledocholithiasis is seen. There is minimal right basilar atelectasis. The unenhanced spleen, pancreas, adrenal glands, and kidn eys are grossly unremarkable. Bilateral extrarenal pelvises sees are noted. There is mild diastases r ecti. No dilated large or small bowel. Spinal canal is grossly unremarkable as are the subcutaneous s oft tissues. A very small amount of T2 hyperintensity is seen along the right lateral conal fascia from the inflam matory change seen on the CT pelvis of the 09/30/2018. Trace pleural effusions have developed in the i nterim. IMPRESSION: 1. Interval development of mild periportal edema. In correlation with the prior CT pelvis, perihepati tis in association with pelvic inflammatory disease or Bfnt-Ibuc-Gnkatr syndrome could be considered. Enhanced abdominal MRI could assess for hepatic capsular enhancement or transient hepatic perfusion anomalies. 2. Cholelithiasis without evidence of choledocholithiasis or common bile duct enlargement. 3. Trace pleural effusions.
[2018-10-02] MEDS: KETOROLAC 30 MG/ML 1 ML VIAL IVP PRN ×2 (03:32→14:42)
[2018-10-02 05:14] LABS: Hepatitis A Antibody IgM Non-Reactive (Non-Reactive); Hepatitis B Core IgM Non-Reactive (Non-Reactive)
[2018-10-02 08:20] VITALS: RESP 16
[2018-10-02] MEDS: PANTOPRAZOLE 40 MG/10 ML VIAL IVP SCH (08:52)
[2018-10-02] MEDS: SODIUM CHLORIDE 0.9% 1,000 ML IV SCH (08:52)
--- NOTE | 2018-10-02 09:01 | P.PN ---
Subjective Progress Note Date: 10/01/18 Patient seen and evaluated. Liver enzymes still elevated. MRCP negative for common bile duct stones. Outpatient cholecystectomy described. Objective - Vital Signs Vital signs: Vital Signs Temp 99.5 F 10/02/18 03:35 Pulse 80 10/02/18 07:50 Resp 16 10/02/18 07:50 BP 100/55 10/02/18 07:50 Pulse Ox 98 10/02/18 07:50 Intake & Output 10/01/18 10/02/18 10/02/18 18:59 06:59 18:59 Other: # Voids 1 1 # Bowel Movements 1 - Labs CBC & Chem 7: 09/30/18 10:11 10/01/18 08:15 Labs: Microbiology - Last 24 Hours (Table) 09/30/18 10:11 Urine Culture - Final Urine,Voided
[2018-10-02 10:47] LABS: Basophils % (A) 0 %; Eosinophils # (A) 0.1 k/uL (0-0.7); Eosinophils % (A) 1 %; HCT 28.6 % (34.0-46.0); Lymphocytes % (A) 17 %; MCH 25.5 pg (25.0-35.0); MCHC 32.6 g/dL (31.0-37.0); MCV 78.4 fL (80.0-100.0); Mean Platelet Volume 7.8; Monocytes # (A) 0.4 k/uL (0-1.0); Monocytes % (A) 6 %; Neutrophils # (A) 4.3 k/uL (1.3-7.7); Neutrophils % (A) 74 %; Platelet Count 293 k/uL (150-450); RBC 3.65 m/uL (3.80-5.40); RDW 14.8 % (11.5-15.5); WBC 5.8 k/uL (3.8-10.6)
[2018-10-02 11:00] LABS: ALT 154 U/L (9-52); AST 101 U/L (14-36); Albumin 3.1 g/dL (3.5-5.0); Alkaline Phosphatase 149 U/L (38-126); Anion Gap 5 mmol/L; Blood Urea Nitrogen 7 mg/dL (7-17); Calcium 8.7 mg/dL (8.4-10.2); Carbon Dioxide 25 mmol/L (22-30); Chloride 111 mmol/L (98-107); Glucose 90 mg/dL (74-99); Potassium 4.1 mmol/L (3.5-5.1); Sodium 141 mmol/L (137-145); Total Bilirubin 0.4 mg/dL (0.2-1.3); Total Protein 6.2 g/dL (6.3-8.2)
[2018-10-02 11:15] LABS: HGB 9.3 gm/dL (11.4-16.0)
--- NOTE | 2018-10-02 11:31 | P.PN ---
Subjective Progress Note Date: 10/02/18 Principal diagnosis: Abdominal pain transaminitis Afebrile. Hepatitis screen nonreactive. White count 5.8. He will at 9.3. Transaminases relatively unchanged TB 0.4. AST 101. ALT 154. AP 149. MRCP- year-old of choledocholithiasis. Periportal edema, perihepatitis associated pelvic inflammatory disease or Leroy-Anupam's Dameon syndrome considered. Trace pleural effusions. Objective - Vital Signs Vital signs: Vital Signs Temp 99.5 F 10/02/18 03:35 Pulse 80 10/02/18 07:50 Resp 16 10/02/18 07:50 BP 100/55 10/02/18 07:50 Pulse Ox 98 10/02/18 07:50 Intake & Output 10/01/18 10/02/18 10/02/18 18:59 06:59 18:59 Other: # Voids 1 1 # Bowel Movements 1 - Exam General appearance: The patient is alert, oriented, in no acute distress. HET: Head is normocephalic and atraumatic. Pupils are equal and reactive. Oropharynx is clear without lesions. Neck: Supple without lymphadenopathy. Trachea midline. Heart: S1 S2. Regular rate and rhythm. Lungs: No crackles or wheezes are heard. Abdomen: Soft, epigastric tenderness, nondistended with bowel sounds. No peritoneal signs. No palpable organomegaly or masses. Extremities: Normal skin color and turgor. No cyanosis, rash, ulceration, clubbing, or edema. Radial and pedal pulses are 2/4 bilaterally. Neurological: No focal deficits. Strength and sensation are grossly intact. - Labs CBC & Chem 7: 10/02/18 10:37 10/02/18 10:37 Labs: Abnormal Lab Results - Last 24 Hours (Table) 10/02/18 10/02/18 Range/Units 10:37 10:37 RBC 3.65 L (3.80-5.40) m/uL Hgb 9.3 L D (11.4-16.0) gm/dL Hct 28.6 L (34.0-46.0) % MCV 78.4 L (80.0-100.0) fL Chloride 111 H (98-107) mmol/L AST 101 H (14-36) U/L ALT 154 H (9-52) U/L Alkaline Phosphatase 149 H (38-126) U/L Total Protein 6.2 L (6.3-8.2) g/dL Albumin 3.1 L (3.5-5.0) g/dL Microbiology - Last 24 Hours (Table) 09/30/18 10:11 Urine Culture - Final Urine,Voided Assessment and Plan (1) Abdominal pain Narrative/Plan: 23-year-old female with a history of cholelithiasis admitted with acute right upper quadrant abdominal pain 2 days with elevated transaminases and normal bilirubin possible underlying choledocholithiasis. CT abdomen and pelvis reported fat stranding and mild wall thickening of small bowel adjacent to the uterine fundus possible localized infiltrative bowel disease possible pelvic inflammatory disease. MRCP ruled out choledocholithiasis. Portal edema possible pelvic inflammatory disease related hepatitis. Current Visit: Yes Status: Acute Code(s): R10.9 - UNSPECIFIED ABDOMINAL PAIN SNOMED Code(s): 09953968 (2) Elevated liver enzymes Current Visit: Yes Status: Acute Code(s): R74.8 - ABNORMAL LEVELS OF OTHER SERUM ENZYMES SNOMED Code(s): 819567829 (3) Cholelithiasis Current Visit: Yes Status: Acute Code(s): K80.20 - CALCULUS OF GALLBLADDER W /O CHOLECYSTITIS W/O OBSTRUCTION SNOMED Code(s): 171738723 Plan: 1. Recommend CAR PILOT consultation. Recommend repeat CMP 3-5 days outpatient setting after discharge. Follow-up GI office in 2-3 weeks. ERCP not indicated at this time. Assessment and plan a care discussed with Dr. Redding
[2018-10-02 12:31] VITALS: BP 105/64; PULSE 68; TEMP 97.6
--- NOTE | 2018-10-02 13:07 | P.PN ---
<TylerIfeomaLeila M - Last Filed: 10/02/18 12:45> Subjective Progress Note Date: 10/02/18 23-year-old female seen in follow-up visit. Currently sitting up in bed. Labs noted and reviewed. Patients being followed by surgical service for acute right upper quadrant abdominal pain with elevated liver enzymes and a normal bilirubin with possible underlying cholelithiasis. Patient did have an MRCP which did rule out cholelithiasis. Portal edema possible pelvic inflammatory disease related to hepatitis per GI The plan is for the patient to be followed in the outpatient setting with Dr. Chavez this was discussed with the patient and the mother at the bedside questions answered Objective - Vital Signs Vital signs: Vital Signs Temp 97.6 F 10/02/18 12:02 Pulse 68 10/02/18 12:02 Resp 16 10/02/18 12:02 BP 105/64 10/02/18 12:02 Pulse Ox 100 10/02/18 12:02 Intake & Output 10/01/18 10/02/18 10/02/18 18:59 06:59 18:59 Other: # Voids 1 1 # Bowel Movements 1 - Exam Physical exam abdomen soft with mild epigastric tenderness not distended bowel tones active no nausea no vomiting states still has intermittent episodes of right upper quadrant abdominal discomfort - Labs CBC & Chem 7: 10/02/18 10:37 10/02/18 10:37 Labs: Abnormal Lab Results - Last 24 Hours (Table) 10/02/18 10/02/18 Range/Units 10:37 10:37 RBC 3.65 L (3.80-5.40) m/uL Hgb 9.3 L D (11.4-16.0) gm/dL Hct 28.6 L (34.0-46.0) % MCV 78.4 L (80.0-100.0) fL Chloride 111 H (98-107) mmol/L AST 101 H (14-36) U/L ALT 154 H (9-52) U/L Alkaline Phosphatase 149 H (38-126) U/L Total Protein 6.2 L (6.3-8.2) g/dL Albumin 3.1 L (3.5-5.0) g/dL Microbiology - Last 24 Hours (Table) 09/30/18 10:11 Urine Culture - Final Urine,Voided Assessment and Plan Plan: Impression Present on admission right upper quadrant abdominal pain with elevated liver enzymes normal bilirubin underlying cholelithiasis not ruled out MR CP MR report reviewed cholelithiasis. Without evidence of choledocholithias Imaging report indicate portal edema possible pelvic inflammatory disease related to hepatitis CAT scan abdomen and pelvis report reviewed possible pelvic inflammatory disease Plan From a surgical perspective patient is felt to be appropriate to be discharged defer to the timing to the attending Will follow-up in the outpatient setting with surgical service The above impression and plan of care have been discussed and directed by signing physician. Leila Scott nurse practitioner acting as scribe for signing physician. <Michelle De Leon N - Last Filed: 10/18/18 11:53> Subjective Patient did have an MRCP which did rule out choledocholithiasis. Objective - Vital Signs Vital signs: Vital Signs Temp 97.6 F 10/02/18 12:02 Pulse 68 10/02/18 12:02 Resp 16 10/02/18 12:02 BP 105/64 10/02/18 12:02 Pulse Ox 100 10/02/18 12:02 - Exam GENERAL: Well developed and in no acute distress. Pleasant. HEENT: No sclera icterus. Extraocular movements grossly intact. Moist buccal mucosa. Head is atraumatic, normocephalic. Hears conversational speech. No nasal drainage. NECK: Supple without lymphadenopathy. No JV distention. CHEST: Non-labored respirations and equal bilateral excursions. CARDIOVASCULAR: Regular rate and rhythm. Palpable 2+ radial pulses. ABDOMEN: Soft, epigastric tenderness. Nondistended. MUSCULOSKELETAL: No clubbing, cyanosis or edema. NEUROLOGIC: No focal or lateralizing signs. Cranial nerves II-12 grossly intact PSYCH: Appropriate affect. Alert and oriented to person, place and time. SKIN: Good skin turgor. Well perfused. - Labs CBC & Chem 7: 10/02/18 10:37 10/02/18 10:37
--- NOTE | 2018-10-02 17:01 | P.DS ---
Providers Date of admission: 09/30/18 13:51 Expected date of discharge: 10/02/18 Attending physician: Yomaira Miller Consults: 09/30/18 13:52 Consult Physician Routine Consulting Provider: Michelle De Leon Consult Reason/Comments: Symptomatic cholelithiasis Do you want consulting provider notified?: Already Contacted 10/01/18 07:19 Consult Physician Routine Consulting Provider: Bull Johnson Consult Reason/Comments: gallstones, elevated liver enzymes Do you want consulting provider notified?: Yes 10/02/18 11:31 Consult Physician Routine Consulting Provider: Ho Bowens Consult Reason/Comments: possible PID, STD Do you want consulting provider notified?: Yes Primary care physician: Stated None Hospital Course: Final Diagnoses: -Right mid between upper and lower quadrants abdominal pain .CT reported CHOLELITHIASIS. -Mildly elevated liver enzymes Related to Cholelithiasis and Has Gallstone . -Contaminated Urine Sample,Suspicion for Urinary Tract Infection Is low. Asymptomatic. -CT abdomen and pelvis reporting portal edema, possible pelvic inflammatory disease, related to hepatitis. Hospital course:Patient is a very pleasant 23-year-old female came in with complains of right lower quadrant abdominal pain 8/10 in severity has been going on for last 5 days progressively worsening. Patient denied any suprapubic pain patient does not have any costo-vertebral angle tenderness. Patient denied any fever chills. Ultrasound of the abdomen was obtained which showed cholelithiasis. No evidence of cholecystitis and on the ultrasound. Pelvic ultrasound was obtained, which showed normal ovarian follicle non uterus. I'll obtain a CAT scan of the abdomen after urine beta- hCG. Patient pain is mostly in the right lower quadrant. Patient does have mildly elevated liver enzymes as well which will be repeated tomorrow. General surgery was consulted. Patient was started on Rocephin because of abnormal uterine patient denied any dysuria, increased urinary frequency or urgency or suprapubic pain, patient urine has a significance, 7 epithelial cells consistent with contaminated urine sample. Abdominal pain is severe and that not related to food. On and off constant. 10/01/2018 CT reported multiple cholesterol gallstones ,mild free fluid in the pelvis and fat stranding, thickening of the small bowel adjacent to the uterine fundus possibly localized IBD, possible endometriosis .evaluated by both surgery and GI. Scheduled for MRCP today. Pain better controlled today, reporting between right upper and lower abdominal quadrants. LFTs improving. Potential cholecystectomy, OP. Denies chest pain, palpitations or increasing shortness of breath. Afebrile tolerated low-fat diet last night and earlier with no nausea vomiting or diarrhea. Positive bilious appearing BM. UA noted, denies urinary symptoms, no frequency or urgency, no burning. 10/02/2018 hepatitis screen nonreactive .MRCP revealed mild cholelithiasis, portable edema possible pelvic inflammatory disease related to hepatitis as per GI. Cleared by surgery and GI for discharge. Patient will be discharged home in a stable condition pending RETENTION REPRESENTATIVE evaluation, recommendations, clearance. - Exam GENERAL: The patient is alert and oriented x3, no acute distress. CARDIOVASCULAR: S1 and S2 present. No murmurs, rubs, or gallops. PULMONARY: Chest is clear to auscultation, no wheezing or crackles. ABDOMEN: Soft, nondistended, tenderness in the right mid between upper and lower quadrants positive bowel sounds NEUROLOGICAL: Gross neurological examination did not reveal any focal deficits. The impression and plan of care has been dictated as directed. : I performed a history and examination of this patient, discussed the same with the dictator. I agree with the dictator's note ,documented as a scribe. Any additional findings or plans will be noted. Time taken: 35 minutes Patient Condition at Discharge: Stable Plan - Discharge Summary Discharge Rx Participant: No New Discharge Prescriptions: No Action No Known Home Medications Discharge Medication List No Known Home Medications 09/30/18 [History] Follow up Appointment(s)/Referral(s): Ho Bowens DO [Doctor of Osteopathic Medicine] - 1 Week Michelle De Leon MD [STAFF PHYSICIAN] - 1 Week Juvencio Mack MD [REFERRING] - 3 Days Bull Johnson MD [STAFF PHYSICIAN] - 3 Weeks Ambulatory/Diagnostic Orders: Comprehensive Metabolic Panel [LAB.AMB] Time Frame: 3 Days, Location: None Selected Activity/Diet/Wound Care/Special Instructions: Pending RETENTION REPRESENTATIVE evaluation/recommendations/clearance.
--- NOTE | 2018-10-02 18:21 | P.OBCN ---
History of Present Illness Consult date: 10/02/18 Requesting physician: Yomaira Miller Reason for consult: pelvic infection Chief complaint: Coil lithiasis History of present illness: Patient is a 23-year-old approximately 6 months who arrived to the hospital complaining of abdominal pain. On ultrasound gallstones were noted and on CT there was some question of increased edema or inflammation just superior to her uterus and concern over possibility of some type of pelvic infection. Symptomatically she does not appear to have PID. Cultures for gonorrhea and chlamydia were obtained and sent to pathology. She has no fever or chills. Her white blood cell count is normal. I see no acute signs of PID certainly an arcuate could be made for prophylactic antibiotics, however at this time I think is probably wiser since she is Greg been on antibiotics to wait for final cultures before proceeding with any further treatments as it does not seem at least at the second likely that PID is the primary diagnosis. I did do a pelvic exam, no cervical motion tenderness is noted. No pain or other signs or symptoms of infection were noted. Assessment abdominal pain with cholelithiasis. Plan await cultures your medical management and surgical management. Past Medical History Past Medical History: No Reported History Additional Past Medical History / Comment(s): past uti/kidney infection approx years ago(was hospitalized) History of Any Multi-Drug Resistant Organisms: None Reported Past Surgical History: No Surgical Hx Reported Additional Past Surgical History / Comment(s): no report of surguries,has never had general aa Past Anesthesia/Blood Transfusion Reactions: No Reported Reaction Additional Past Anesthesia/Blood Transfusion Reaction / Comm: has never had aa Smoking Status: Never smoker - Past Family History Father History Unknown: Yes Mother Family Medical History: No Reported History Additional Family Medical History / Comment(s): gallbladder issues Medications and Allergies Home Medications Medication Instructions Recorded Confirmed Type No Known Home Medications 09/30/18 09/30/18 History Allergies Allergy/AdvReac Type Severity Reaction Status Date / Time No Known Allergies Allergy Verified 09/30/18 11:00 Exam Osteopathic Statement: *. No significant issues noted on an osteopathic structural exam other than those noted in the History and Physical/Consult. Vital Signs Temp Pulse Resp BP Pulse Ox 10/02/18 12:02 97.6 F 68 16 105/64 100 10/02/18 07:50 80 16 100/55 98 10/02/18 03:35 99.5 F 77 18 105/45 99 10/01/18 20:01 98.6 F 85 16 104/66 96 Intake and Output 10/02/18 10/02/18 10/02/18 06:59 14:59 22:59 Other: # Voids 1 2 Results Result Diagrams: 10/02/18 10:37 10/02/18 10:37 Abnormal Lab Results - Last 24 Hours (Table) 10/02/18 10/02/18 Range/Units 10:37 10:37 RBC 3.65 L (3.80-5.40) m/uL Hgb 9.3 L D (11.4-16.0) gm/dL Hct 28.6 L (34.0-46.0) % MCV 78.4 L (80.0-100.0) fL Chloride 111 H (98-107) mmol/L AST 101 H (14-36) U/L ALT 154 H (9-52) U/L Alkaline Phosphatase 149 H (38-126) U/L Total Protein 6.2 L (6.3-8.2) g/dL Albumin 3.1 L (3.5-5.0) g/dL Microbiology - Last 24 Hours (Table) 09/30/18 10:11 Urine Culture - Final Urine,Voided
[2018-10-05 08:17] LABS: C. trachomatis,PCR Positive (Neg,Equiv); Chlamydia trachomatis Source Vagina
[2018-10-05 08:31] LABS: N. gonorrhoeae,PCR Negative (Neg,Equiv); Neisseria Source Vagina
== END 2018-10-02 19:01 | disposition home or self-care (01) ==
LOC: EC 10:00 → INTOOBSV 13:51 → 6PED 13:51 → UNDODISIN 10-02 19:01
PROVIDERS: ADMIT Internal Medicine; ATTEND Internal Medicine
DX: K80.20 Calculus of gallbladder without cholecystitis without obstruction (principal); R10.31 Right lower quadrant pain; R74.8 Abnormal levels of other serum enzymes; E66.9 Obesity, unspecified; Z68.25 Body mass index [BMI] 25.0-25.9, adult; Z87.440 Personal history of urinary (tract) infections; Z83.79 Family history of other diseases of the digestive system
CPT/HCPCS: 96361 ×4; 96366; 96375 ×3; 96376 ×3; 96365; 99285; 36415; 80053 ×3; 80074; 82150 ×2; 83690 ×2; 85025 ×2; 81001; 81025; 87491; 87591; 87086; 93975; 76830; 76705; 74177; 74181; G0378 ×3; J2405; J0696 ×3; J1885 ×3; C9113 ×3; Q9967

== ENCOUNTER 2018-10-22 11:58 | Day surgery (SDC) | payer OTHER ==
[2018-10-15 11:03] VITALS: BMI 25.8
--- NOTE | 2018-10-22 10:57 | P.GSHP ---
History of Present Illness H&P Date: 10/22/18 CHIEF COMPLAINT: Cholecystitis HISTORY OF PRESENT ILLNESS: The patient is a 23-year-old female who presents with history of epigastric including right upper quadrant abdominal pain. She underwent diagnostic studies for her gallbladder. Separately her clinical picture was consistent with cholecystitis. Now she presents for surgical intervention. PAST MEDICAL HISTORY: Please see list PAST SURGICAL HISTORY: Please see list MEDICATIONS: Please see list ALLERGIES: Denies. SOCIAL HISTORY: No illicit drug use or recent tobacco use FAMILY HISTORY: Pertinent for gallbladder disease REVIEW OF ORGAN SYSTEMS: CONSTITUTIONAL: No reports of fevers or chills. HEENT: Denies any troubles with the vision or hearing. ENDOCRINE: No reports of hypothyroidism. No diabetes. RESPIRATORY: No recent pneumonias. CARDIOVASCULAR: Denies chest pain or palpitations GI: No blood in stools or constipation. MUSCULOSKELETAL: Has occasional joint pain including back pain. NEURO: No seizure disorders or headaches. No recent stroke. PSYCH: No depression or suicidal ideation. GENITOURINARY: No active blood in urine. No urinary hesitancy. HEMATOLOGIC: No personal or family history of DVTs or pulmonary emboli. SKIN: No skin cancer. PHYSICAL EXAM: VITAL SIGNS: Afebrile vital signs stable GENERAL: Well-developed pleasant in no acute distress. HEENT: No scleral icterus. Extraocular movements grossly intact. Moist buccal mucosa. NECK: Supple without lymphadenopathy. CHEST: Unlabored respirations. Equal bilateral excursions. CARDIOVASCULAR: Regular rate regular rhythm rhythm. Distal 2+ pulses. ABDOMEN: Soft, nondistended. Tender along the epigastrium and right upper quadrant. MUSCULOSKELETAL: No clubbing, cyanosis, or edema. NEURO: Cranial nerves II to XII within normal limits. No focal or lateralizing signs. PSYCH: Alert and oriented to person, place and time. SKIN: Well-perfused good skin turgor. ASSESSMENT: 1. Epigastric and right upper quadrant abdominal pain 2. Chronic cholecystitis 3. Symptomatic gallstones. PLAN: 1. Will need a robotic cholecystectomy possible open. Benefits and risks were described. 2. Heparin for DVT prophylaxis 5000 units. 3. Antibiotic prophylaxis. Past Medical History Past Medical History: No Reported History Additional Past Medical History / Comment(s): uti/kidney infection years ago( was hospitalized)., recent hospitalization for Gall Bladder problems (Sep 2018) History of Any Multi-Drug Resistant Organisms: None Reported Past Surgical History: No Surgical Hx Reported Additional Past Surgical History / Comment(s): . Past Anesthesia/Blood Transfusion Reactions: No Reported Reaction Additional Past Anesthesia/Blood Transfusion Reaction / Comment(s): Has never had anesthesia Past Psychological History: No Psychological Hx Reported Smoking Status: Never smoker Past Alcohol Use History: None Reported Past Drug Use History: None Reported - Past Family History Father History Unknown: Yes Family Medical History: No Reported History Mother Family Medical History: No Reported History Additional Family Medical History / Comment(s): gallbladder issues Medications and Allergies Home Medications Medication Instructions Recorded Confirmed Type Acetaminophen Tab [Tylenol Tab] 650 mg PO Q6H PRN 10/15/18 10/15/18 History Allergies Allergy/AdvReac Type Severity Reaction Status Date / Time No Known Allergies Allergy Verified 10/15/18 10:34
[~2018-10-22 11:58] MED LIST: ACETAMINOPHEN IV (For NPO) 1,000 MG in EMPTY BAG 1 BAG IVPB ONE; HEPARIN SODIUM,PORCINE 5,000 UNIT/ML 1 ML VIAL SQ ONE
[2018-10-22] MEDS ORDERED: LACTATED RINGERS 1,000 ML IV ONE ×2 (13:25→15:19)
[2018-10-22] MEDS ORDERED: LIDOCAINE 1% 20 ML VIAL (10MG/ML) FOR IV START INTRADERMA ONE (13:25)
[2018-10-22] MEDS ORDERED: DEXAMETHASONE SOD PHOSPHATE 10 MG/ML 1 ML VIAL IV ONE (13:30)
[2018-10-22] MEDS ORDERED: ONDANSETRON 4 MG/2 ML VIAL IVP ONE (13:30)
[2018-10-22 13:54] LABS: Basophils % (A) 0 %; Eosinophils # (A) 0.1 k/uL (0-0.7); Eosinophils % (A) 2 %; HCT 35.6 % (34.0-46.0); HGB 11.6 gm/dL (11.4-16.0); Hypochromasia Slight; Lymphocytes # (A) 1.5 k/uL (1.0-4.8); Lymphocytes % (A) 34 %; MCHC 32.8 g/dL (31.0-37.0); MCV 76.4 fL (80.0-100.0); Mean Platelet Volume 6.8; Microcytosis Slight; Monocytes # (A) 0.2 k/uL (0-1.0); Monocytes % (A) 5 %; Neutrophils # (A) 2.5 k/uL (1.3-7.7); Neutrophils % (A) 56 %; Platelet Count 441 k/uL (150-450); RBC 4.66 m/uL (3.80-5.40); RDW 14.4 % (11.5-15.5); WBC 4.4 k/uL (3.8-10.6)
[2018-10-22 14:03] LABS: ALT 36 U/L (9-52); AST 23 U/L (14-36); Albumin 4.4 g/dL (3.5-5.0); Alkaline Phosphatase 122 U/L (38-126); Anion Gap 8 mmol/L; Blood Urea Nitrogen 18 mg/dL (7-17); Calcium 9.7 mg/dL (8.4-10.2); Carbon Dioxide 27 mmol/L (22-30); Chloride 105 mmol/L (98-107); Glucose 85 mg/dL (74-99); Potassium 4.4 mmol/L (3.5-5.1); Sodium 140 mmol/L (137-145); Total Bilirubin 0.5 mg/dL (0.2-1.3); Total Protein 8.5 g/dL (6.3-8.2)
[2018-10-22] MEDS ORDERED: BUPIVACAIN-EPI 0.25%-1:200,000 30 ML VIAL SQ ONE ×2 (14:17→14:45)
[2018-10-22] MEDS ORDERED: PROPOFOL 10 MG/ML 20 ML VIAL IV ONE (14:20)
[2018-10-22] MEDS ORDERED: MIDAZOLAM 2 MG/2 ML VIAL ONE (14:20)
[2018-10-22] MEDS ORDERED: GLYCOPYRROLATE 0.2 MG/ML 2 ML VIAL ONE (14:20)
[2018-10-22] MEDS ORDERED: SUCCINYLCHOLINE CHLORIDE 100 MG/5 ML SYR IV ONE (14:20)
[2018-10-22] MEDS ORDERED: LIDOCAINE 1% INJ 10MG/ML (20 ML MDV) ONE (14:20)
[2018-10-22] MEDS ORDERED: INDOCYANINE GREEN 25 MG VIAL IV ONE (14:20)
[2018-10-22] MEDS ORDERED: NEOSTIGMINE 1 MG/ML 10 ML VIAL ONE (14:20)
[2018-10-22] MEDS ORDERED: fentaNYL (PF) 50 MCG/ML 2 ML AMP ONE (14:20)
[2018-10-22] MEDS ORDERED: ROCURONIUM BROMIDE 10 MG/ML 10 ML VIAL IV ONE (14:20)
[2018-10-22] MEDS: ceFAZolin IN SWFI 2 GM/20 ML SYRINGE IVP ONE ×2 (14:21→14:35)
[2018-10-22 15:48] VITALS: TEMP 97.2
[2018-10-22] MEDS ORDERED: HYDROmorphone 1 MG/ML 1 ML SYRINGE IVP ONE ×4 (15:58→16:45)
--- NOTE | 2018-10-22 16:08 | P.OP ---
Date of Procedure: 10/22/18 Description of Procedure: SURGEON: MICHELLE DE LEON MD PREOPERATIVE DIAGNOSES: 1. Right upper quadrant abdominal pain 2. Chronic cholecystitis 3. History of elevated liver enzymes 4. Peutz-Jeghers syndrome 5. Symptomatic gallstones POSTOPERATIVE DIAGNOSES: 1. Right upper quadrant abdominal pain 2. Chronic cholecystitis 3. History of elevated liver enzymes 4. Peutz-Jeghers syndrome 5. Symptomatic gallstones OPERATION: Robotic-assisted da Aleja Xi laparoscopic cholecystectomy, multiport with FIREFLY ESTIMATED BLOOD LOSS: 5 mL. SPECIMENS REMOVED: Gallbladder. COMPLICATIONS: None. OPERATIVE FINDINGS: 1. Chronic cholecystitis 2. 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 Symptomatic gallstones INDICATIONS: The patient is a 23-year-old female who presents with cholelcystitis. Surgical intervention with a laparoscopic cholecystectomy was described at length including injury to the biliary tree, bleeding, infection, need for further surgery. Informed consent was obtained. Robotic assisted laparoscopic approach was described. Benefits and risks of the procedure including but not limited to bleeding, infection, injury to the biliary tree was described. Informed consent was obtained. DESCRIPTION OF PROCEDURE: Patient was brought to the operating room, placed in supine position. After general induction, the abdomen had been prepped and draped in standard sterile fashion. The robotic da Aleja XI system was primed. After a timeout protocol was performed, the patient had been prepped and draped in standard sterile fashion. The patient was injected with indocyanine green. A 5 mm 0 degrees laparoscopic trocar entry was performed along the left upper quadrant. The abdomen insufflated to 15 mmHg pressure which was tolerated well. Diagnostic laparoscopy demonstrated no injury to bowel viscera or mesentery. The liver surface was unremarkable. Next, two 8 mm robotic ports were placed along the right upper abdomen. The camera 8-mm port was maintained along the epigastrium. Another 8 mm port was placed along the left upper abdominal wall after exchanging the 5 mm port. Please note that the ports were placed at least 10 to 15 cm away from the target anatomy of the gallbladder. The robot was docked along the left lateral abdomen. The patient was repositioned in reverse Trendelenburg position. Using a grasper for arm 3, a grasper for arm 4, including hook cautery for arm 1 , the robotic system was docked and primed as described. Instruments were interchanged by the administrative assistant receptionist including hook cautery, Bovie cautery and clip appliers. I had sat at the console. The gallbladder fundus was retracted over the dome of the liver. Initial attention was brought to the infundibulum which was gently retracted in the inferior lateral approach. Using a grasper, the cystic duct including the cystic artery was carefully skeletonized. FIREFLY was used to identify the cystic artery and cystic structures. Large PLASTIC clips were used throughout the entire case. Using a clip automotive assembler 2 clips were placed proximally, and 1 clip was placed distally along the cystic duct and then cauterized with the cautery. Again care was taken to avoid any injury to the biliary tree as the common bile duct was clearly visualized during this portion of dissection. Next, the cystic artery was similarly clipped and cauterized. Electro-Bovie cautery was used to remove the gallbladder from the hepatic fossa. Hemostasis was checked and found to be adequate. The robot was undocked. I re-scrubbed into the case. Using a 10 mm Endo Catch bag via the left upper quadrant incision, the specimen was removed from the abdominal cavity. All pneumoperitoneum instruments were evacuated from the abdominal cavity. The incisions were reapproximated using 4-0 Monocryl in an interrupted subcuticular fashion. Fascial defects were less than 8 mm in size. Please note along the trocar sites, local anesthetic was placed as a field block prior to insertion of all instruments. Liquid glue was applied to the skin. At the end of the procedure needle, sponge, and instrument count had been verified correct by the surgical services asst. The patient was transferred to postanesthesia care unit in stable condition. Intraoperative films were shared with the patient's family who were very pleased with the level of care. Console time: 21 minutes Plan - Discharge Summary New Discharge Prescriptions: New HYDROcodone/APAP 5-325MG [[place] 5-325] 1 tab PO Q4HR PRN 3 Days #18 tab PRN Reason: Pain Ibuprofen [Motrin] 600 mg PO Q8HR PRN #30 tab PRN Reason: Pain No Action Acetaminophen Tab [Tylenol Tab] 650 mg PO Q6H PRN PRN Reason: Pain Discharge Medication List Acetaminophen Tab [Tylenol Tab] 650 mg PO Q6H PRN 10/15/18 [History] HYDROcodone/APAP 5-325MG [[place] 5-325] 1 tab PO Q4HR PRN 3 Days #18 tab [Rx] Ibuprofen [Motrin] 600 mg PO Q8HR PRN #30 tab 10/22/18 [Rx] Follow up Appointment(s)/Referral(s): Michelle De Leon MD [STAFF PHYSICIAN] - 10/28/18 Patient Instructions/Handouts: Laparoscopic Cholecystectomy (IP), Low Fat Diet (DC) Activity/Diet/Wound Care/Special Instructions: No lifting over 4 pounds in 1 week. May shower. No bathtub soaks. Discharge Disposition: HOME SELF-CARE
[2018-10-22 17:23] VITALS: RESP 16
[2018-10-22 18:07] VITALS: BP 104/64; PULSE 53
== END 2018-10-22 18:57 | disposition home or self-care (01) ==
LOC: OR 11:58
PROVIDERS: ATTEND Surgery Plastic and Reconstructive Surgery
DX: K80.10 Calculus of gallbladder with chronic cholecystitis without obstruction (principal); Q85.8 Other phakomatoses, not elsewhere classified
CPT/HCPCS: 47562; S2900; 80053; 81025; 85025

== ENCOUNTER 2019-03-01 21:18 | Emergency (ER) | payer OTHER ==
[2019-03-01 21:25] VITALS: BP 116/73; PULSE 73; RESP 18; TEMP 98.5
[2019-03-01 22:02] LABS: Appearance,Urine Clear (Clear); Bacteria,Urine Rare /hpf; Bilirubin,Urine Negative (Negative); Blood,Urine Negative (Negative); Color,Urine Light Yellow; Glucose,Urine (UA) Negative (Negative); Ketones,Urine Negative (Negative); Leukocyte Esterase,Urine Trace (Negative); Mucus,Urine Rare /hpf; Nitrite,Urine Negative (Negative); Protein,Urine Negative (Negative); RBC,Urine 1 /hpf (0-5); Specific Gravity,Urine 1.014 (1.001-1.035); Squamous Epithelial Cell,Urine 1 /hpf (0-4); Urobilinogen,Urine <2.0 mg/dL (<2.0)
[2019-03-01] MEDS ORDERED: SODIUM CHLORIDE 0.9% 1,000 ML IV ONE (22:54)
--- NOTE | 2019-03-01 23:06 | ED ---
Abdominal Pain HPI - General Chief Complaint: Abdominal Pain Stated Complaint: Dizziness, Cramping Time Seen by Provider: 03/01/19 22:29 Source: patient Mode of arrival: ambulatory Limitations: no limitations - History of Present Illness Initial Comments: 23-year-old female patient percents to the emergency department today for evaluation of suprapubic cramping. Patient states that she has been having this intermittent and severe cramping for a little over a month.. Patient states that her last period was January 31. She states the bleeding was heavier than usual however the period only lasted around 3 days which is unusual for her. Patient is . She states she may be . Patient denies any fever or chills with this. States she has been nauseated but has not had any vomiting. She denies any hematuria, dysuria, urinary frequency, urinary urgency. She denies any abnormal vaginal bleeding or discharge. She denies concern for sexua lly transmitted infections. She denies any radiation of the pain into her back. Patient denies any recent rash, shortness breath, chest pain, abdominal pain, diarrhea, constipation, back pain, numbness, tingling, dizziness, weakness, headache, visual changes, or any other complaints. - Related Data Previous Rx's Medication Instructions Recorded Ibuprofen [Motrin] 600 mg PO Q8HR PRN #30 tab 10/22/18 Cephalexin [Keflex] 500 mg PO Q6HR 3 Days #12 cap 03/02/19 Allergies Allergy/AdvReac Type Severity Reaction Status Date / Time No Known Allergies Allergy Verified 03/01/19 22:15 Review of Systems ROS Statement: Those systems with pertinent positive or pertinent negative responses have been documented in the HPI. ROS Other: All systems not noted in ROS Statement are negative. Past Medical History Past Medical History: No Reported History Additional Past Medical History / Comment(s): uti/kidney infection years ago(was hospitalized)., recent hospitalization for Gall Bladder problems (Sep 2018) History of Any Multi-Drug Resistant Organisms: None Reported Past Surgical History: Cholecystectomy Additional Past Surgical History / Comment(s): . Past Anesthesia/Blood Transfusion Reactions: No Reported Reaction Additional Past Anesthesia/Blood Transfusion Reaction / Comment(s): Has never had anesthesia Past Psychological History: No Psychological Hx Reported Smoking Status: Never smoker Past Alcohol Use History: None Reported Past Drug Use History: None Reported - Past Family History Father History Unknown: Yes Family Medical History: No Reported History Mother Family Medical History: No Reported History Additional Family Medical History / Comment(s): gallbladder issues General Exam Limitations: no limitations General appearance: alert, in no apparent distress, other (Physical well- developed, well-nourished adult female patient in no acute distress. Vital signs upon presentation are temperature 98.5F, pulse 73, respirations 18, blood pressure 116/73, pulse ox 100% on room air.) Eye exam: Present: normal appearance, PERRL, EOMI. Absent: scleral icterus, conjunctival injection, periorbital swelling ENT exam: Present: normal exam, normal oropharynx, mucous membranes moist Respiratory exam: Present: normal lung sounds bilaterally. Absent: respiratory distress, wheezes, rales, rhonchi, stridor Cardiovascular Exam: Present: regular rate, normal rhythm, normal heart sounds. Absent: systolic murmur, diastolic murmur, rubs, gallop, clicks GI/Abdominal exam: Present: soft, normal bowel sounds. Absent: distended, tenderness, guarding, rebound, rigid Back exam: Present: normal inspection. Absent: CVA tenderness (R), CVA tenderness (L) Neurological exam: Present: alert, oriented X3, CN II-XII intact Psychiatric exam: Present: normal affect, normal mood Skin exam: Present: warm, dry, intact, normal color. Absent: rash Course Vital Signs 03/01/19 21:21 Temperature 98.5 F Pulse Rate 73 Respiratory 18 Rate Blood Pressure 116/73 O2 Sat by Pulse 100 Oximetry Medical Decision Making - Medical Decision Making 23-year-old female patient presents to the emergency department today for evaluation of pelvic cramping. Patient states his been going on for over a month. Last period was 01/31/2019. She did have positive test upon arrival to the emergency department. Did order labs, hCG is 388 at this time. Ultrasound was obtained and showed no evidence for intrauterine gestational sac. Normal ovaries. Did discuss findings and results with the patient. We did discuss possibility of early as a cause for her ultrasound findings. They're consistent with an hCG level of 388. She was given prescription for repeat hCG in 3 days. We discussed possibility of ectopic however no evidence of this was seen on ultrasound, she was given education regarding signs or symptoms. She is instructed to follow-up with [facility] for recheck as soon as possible. Return parameters discussed in detail. She verbalizes understanding and agrees this plan. - Lab Data Result diagrams: 03/01/19 22:58 03/01/19 22:58 Lab Results 03/01/19 03/01/19 03/01/19 Range/Units 21:25 21:25 22:58 WBC (3.8-10.6) k/uL RBC (3.80-5.40) m/uL Hgb (11.4-16.0) gm/dL Hct (34.0-46.0) % MCV (80.0-100.0) fL MCH (25.0-35.0) pg MCHC (31.0-37.0) g/dL RDW (11.5-15.5) % Plt Count (150-450) k/uL Neutrophils % % Lymphocytes % % Monocytes % % Eosinophils % % Basophils % % Neutrophils # (1.3-7.7) k/uL Lymphocytes # (1.0-4.8) k/uL Monocytes # (0-1.0) k/uL Eosinophils # (0-0.7) k/uL Basophils # (0-0.2) k/uL Microcytosis Sodium 140 (137-145) mmol/L Potassium 3.7 (3.5-5.1) mmol/L Chloride 106 (98-107) mmol/L Carbon Dioxide 24 (22-30) mmol/L Anion Gap 10 mmol/L BUN 11 (7-17) mg/dL Creatinine 0.64 (0.52-1.04) mg/dL Est GFR (CKD-EPI)AfAm >90 (>60 ml/min/1.73 sqM) Est GFR (CKD-EPI)NonAf >90 (>60 ml/min/1.73 sqM) Glucose 54 L (74-99) mg/dL Calcium 9.5 (8.4-10.2) mg/dL Total Bilirubin 0.4 (0.2-1.3) mg/dL AST 22 (14-36) U/L ALT 29 (9-52) U/L Alkaline Phosphatase 91 (38-126) U/L Total Protein 8.0 (6.3-8.2) g/dL Albumin 4.7 (3.5-5.0) g/dL Amylase 70 (30-110) U/L Lipase 68 (23-300) U/L HCG, Quant 388.1 mIU/mL Urine Color Light Yellow Urine Appearance Clear (Clear) Urine pH 8.0 (5.0-8.0) Ur Specific [place] 1.014 (1.001-1.035) Urine Protein Negative (Negative) Urine Glucose (UA) Negative (Negative) Urine Ketones Negative (Negative) Urine Blood Negative (Negative) Urine Nitrite Negative (Negative) Urine Bilirubin Negative (Negative) Urine Urobilinogen <2.0 (<2.0) mg/dL Ur Leukocyte Esterase Trace H (Negative) Urine RBC 1 (0-5) /hpf Urine WBC 11 H (0-5) /hpf Ur Squamous Epith Cells 1 (0-4) /hpf Urine Bacteria Rare H (None) /hpf Urine Mucus Rare H (None) /hpf Urine HCG, Qual Detected (Not Detectd) 03/01/19 Range/Units 22:58 WBC 7.7 (3.8-10.6) k/uL RBC 4.96 (3.80-5.40) m/uL Hgb 12.3 (11.4-16.0) gm/dL Hct 37.7 (34.0-46.0) % MCV 76.0 L (80.0-100.0) fL MCH 24.7 L (25.0-35.0) pg MCHC 32.5 (31.0-37.0) g/dL RDW 16.0 H (11.5-15.5) % Plt Count 311 (150-450) k/uL Neutrophils % 68 % Lymphocytes % 23 % Monocytes % 5 % Eosinophils % 1 % Basophils % 1 % Neutrophils # 5.2 (1.3-7.7) k/uL Lymphocytes # 1.8 (1.0-4.8) k/uL Monocytes # 0.4 (0-1.0) k/uL Eosinophils # 0.1 (0-0.7) k/uL Basophils # 0.1 (0-0.2) k/uL Microcytosis Slight Sodium (137-145) mmol/L Potassium (3.5-5.1) mmol/L Chloride (98-107) mmol/L Carbon Dioxide (22-30) mmol/L Anion Gap mmol/L BUN (7-17) mg/dL Creatinine (0.52-1.04) mg/dL Est GFR (CKD-EPI)AfAm (>60 ml/min/1.73 sqM) Est GFR (CKD-EPI)NonAf (>60 ml/min/1.73 sqM) Glucose (74-99) mg/dL Calcium (8.4-10.2) mg/dL Total Bilirubin (0.2-1.3) mg/dL AST (14-36) U/L ALT (9-52) U/L Alkaline Phosphatase (38-126) U/L Total Protein (6.3-8.2) g/dL Albumin (3.5-5.0) g/dL Amylase (30-110) U/L Lipase (23-300) U/L HCG, Quant mIU/mL Urine Color Urine Appearance (Clear) Urine pH (5.0-8.0) Ur Specific [place] (1.001-1.035) Urine Protein (Negative) Urine Glucose (UA) (Negative) Urine Ketones (Negative) Urine Blood (Negative) Urine Nitrite (Negative) Urine Bilirubin (Negative) Urine Urobilinogen (<2.0) mg/dL Ur Leukocyte Esterase (Negative) Urine RBC (0-5) /hpf Urine WBC (0-5) /hpf Ur Squamous Epith Cells (0-4) /hpf Urine Bacteria (None) /hpf Urine Mucus (None) /hpf Urine HCG, Qual (Not Detectd) - Radiology Data Radiology results: report reviewed, image reviewed Transvaginal ultrasound of the pelvis was obtained. Report was reviewed in its entirety. Impression by Dr. Kelly shows no evidence for intrauterine or extrauterine gestational sac on this study. Ectopic is not excluded. Normal appearance of the left and right ovary. Disposition Clinical Impression: Pelvic pain during , Early stage of Disposition: HOME SELF-CARE Condition: Good Instructions (If sedation given, give patient instructions): (ED), Pelvic Pain in Women (ED) Additional Instructions: Have repeat hCG level drawn in 3 days. Follow-up with [facility] for recheck as freda n as possible. Follow-up with your primary care physician for recheck in 1-2 days. Return to the emergency department immediately for any new, worsening, or concerning symptoms. Prescriptions: Cephalexin [Keflex] 500 mg PO Q6HR 3 Days #12 cap Is patient prescribed a controlled substance at d/c from ED?: No Referrals: None,Stated [Primary Care Provider] - 1-2 days Time of Disposition: 01:03
[2019-03-01 23:17] LABS: Basophils # (A) 0.1 k/uL (0-0.2); Basophils % (A) 1 %; Eosinophils # (A) 0.1 k/uL (0-0.7); Eosinophils % (A) 1 %; HCT 37.7 % (34.0-46.0); HGB 12.3 gm/dL (11.4-16.0); Lymphocytes # (A) 1.8 k/uL (1.0-4.8); Lymphocytes % (A) 23 %; MCH 24.7 pg (25.0-35.0); MCHC 32.5 g/dL (31.0-37.0); Microcytosis Slight; Monocytes # (A) 0.4 k/uL (0-1.0); Monocytes % (A) 5 %; Neutrophils # (A) 5.2 k/uL (1.3-7.7); Neutrophils % (A) 68 %; Platelet Count 311 k/uL (150-450); RBC 4.96 m/uL (3.80-5.40); WBC 7.7 k/uL (3.8-10.6)
[2019-03-01 23:30] LABS: ALT 29 U/L (9-52); AST 22 U/L (14-36); Albumin 4.7 g/dL (3.5-5.0); Alkaline Phosphatase 91 U/L (38-126); Amylase 70 U/L (30-110); Anion Gap 10 mmol/L; Blood Urea Nitrogen 11 mg/dL (7-17); Calcium 9.5 mg/dL (8.4-10.2); Carbon Dioxide 24 mmol/L (22-30); Chloride 106 mmol/L (98-107); Glucose 54 mg/dL (74-99); Lipase 68 U/L (23-300); Potassium 3.7 mmol/L (3.5-5.1); Sodium 140 mmol/L (137-145); Total Bilirubin 0.4 mg/dL (0.2-1.3)
[2019-03-01 23:46] LABS: HCG,Quantitative Serum 388.1 mIU/mL
--- NOTE | 2019-03-02 00:41 | US ---
EXAM: US , Transvaginal CLINICAL HISTORY: Pain TECHNIQUE: Real-time transvaginal obstetrical ultrasound of the maternal pelvis and a first trimester with image documentation. Transvaginal imaging was used for better evaluation of the fetus and adnexa. COMPARISON: No relevant prior studies available. FINDINGS: Gestation: No intrauterine or extrauterine gestational sac identified on this study. Uterus/cervix: The uterus measures 9.0 x 2.2 x 8.0 cm. The endometrium measures 2.4 cm.. Ovaries the right ovary measures 2.6 x 2.2 x 1.9 cm. Left ovary measures 2.4 x 1.4 0.2 cm. Normal symmetric blood flow noted left and right ovary.. Free fluid: Trace free fluid IMPRESSION: No evidence for intrauterine or extrauterine gestational sac seen on this study. Ectopic is not excluded. Normal appearance left and right ovary.
[2019-03-02] MEDS ORDERED: CEPHALEXIN 500MG STARTER PACK 4 CAP BTL PO STA (01:04)
== END 2019-03-02 01:20 | disposition home or self-care (01) ==
LOC: EC 21:18
DX: O26.899 Other specified pregnancy related conditions, unspecified trimester (principal); R10.2 Pelvic and perineal pain; Z3A.00 Weeks of gestation of pregnancy not specified; Z90.49 Acquired absence of other specified parts of digestive tract
CPT/HCPCS: 36415; 76801; 76817; 80053; 81001; 81025; 82150; 83690; 84702; 85025; 87086; 96360; 99284

== ENCOUNTER → 2019-03-04 | Outpatient (CLI) | payer OTHER | END | disposition home or self-care (01) | LOC: LABWHC1 07:56 | PROVIDERS: ATTEND Obstetrics & Gynecology | DX: N92.6 Irregular menstruation, unspecified (principal) | CPT/HCPCS: 36415; 84702 ==

== ENCOUNTER → 2019-03-11 | Outpatient (CLI) | payer OTHER ==
--- NOTE | 2019-03-11 10:16 | US ---
EXAMINATION TYPE: Transabdominal DATE OF EXAM: 03/11/2019 8:16 AM COMPARISON: US CLINICAL HISTORY: Z36 Confirm Dates. Confirm Dates, pt has no complaints at this time EXAM PERFORMED: Transabdominal (TA) EXAM MEASUREMENTS: GESTATIONAL AGE / DATING Physician Established: Not yet established Dates by LMP: (5 weeks/4 days) EDC: 11/07/2019 Dates by First Scan: Too early to calculate dates Dates by Current Scan for: (5 weeks/6 days) EDC: 11/05/2019 MATERNAL ANATOMY Uterus: 10.3 x 4.4 x 6.0 cm Right Ovary: 3.3 x 2.0 x 3.0 cm Left Ovary: 2.9 x 1.4 x 2.9 cm Post CDS / Adnexa: wnl Presence of free fluid: No Presence of corpus luteal cyst: Right Ovary= 2.0 x 1.6 x 1.7 cm Presence of subchorionic bleed: No GESTATION / SURVEY CRL: Not yet visualized MSD: 1.2 cm (5 weeks/6 days) Yolk Sac (normal less than 6mm): 2mm Date of LMP: 01/31/2019 Beta HcG (if available): Not available at this time Small gestational sac with yolk sac within uterus/ Too early to visualize pole at this time/ Progression is visualized when compared to previous IMPRESSION: Findings likely represent early , follow-up.
== END | disposition home or self-care (01) ==
LOC: RADUSMAIN 07:56
PROVIDERS: ATTEND Obstetrics & Gynecology
DX: Z36.89 Encounter for other specified antenatal screening (principal); Z3A.00 Weeks of gestation of pregnancy not specified
CPT/HCPCS: 76801

== ENCOUNTER 2019-08-13 18:02 | Emergency (ER) | payer OTHER ==
[2019-08-13 18:23] VITALS: RESP 18; TEMP 98.3
--- NOTE | 2019-08-13 18:32 | ED ---
General Adult HPI - General Chief complaint: Back Pain/Injury Stated complaint: Lower back pain-28 wks Time Seen by Provider: 08/13/19 18:31 Source: patient Mode of arrival: ambulatory Limitations: no limitations - History of Present Illness Initial comments: 24-year-old female with history of pyelonephritis as well as kidney stones currently 28 weeks presents emergency department for chief complaint of back pain 10 days. Patient states she initially had right-sided back pain about a week and a half ago. She states she thought was back strain. Patient states that the pain would come and go and was not constant that time. Patient states the past 3 days she has had constant left-sided back pain. She states she is concerned because this sharp that it may be related to a kidney stone. Patient denies dysuria urgency frequency hematuria noted. Patient states that she has had no abdominal pain or cramping. Patient thought initially when the pain is started and may have been related to Riccardo Hou. Patient states she did have an episode of spotting approximately 2 weeks ago she states is a small amount and was told not to be concerned. Patient denies any heavy vaginal bleeding or bleeding since. Patient states she has normal movement. Patient has a false trauma to the back. Patient denies fevers, chills or flulike symptoms. Remaining review of system negative, upon arrival patient appears nontoxic but uncomfortable. - Related Data Previous Rx's Medication Instructions Recorded Ibuprofen [Motrin] 600 mg PO Q8HR PRN #30 tab 10/22/18 Cephalexin [Keflex] 500 mg PO Q6HR 3 Days #12 cap 03/02/19 Allergies Allergy/AdvReac Type Severity Reaction Status Date / Time No Known Allergies Allergy Verified 08/13/19 18:20 Review of Systems ROS Statement: Those systems with pertinent positive or pertinent negative responses have been documented in the HPI. ROS Other: All systems not noted in ROS Statement are negative. Past Medical History Past Medical History: No Reported History Additional Past Medical History / Comment(s): uti/kidney infection years ago(was hospitalized)., recent hospitalization for Gall Bladder problems (Sep 2018), kidney stones History of Any Multi-Drug Resistant Organisms: None Reported Past Surgical History: Cholecystectomy Additional Past Surgical History / Comment(s): . Past Anesthesia/Blood Transfusion Reactions: No Reported Reaction Additional Past Anesthesia/Blood Transfusion Reaction / Comment(s): Has never had anesthesia Past Psychological History: No Psychological Hx Reported Smoking Status: Never smoker Past Alcohol Use History: None Reported Past Drug Use History: None Reported - Past Family History Father History Unknown: Yes Family Medical History: No Reported History Mother Family Medical History: No Reported History Additional Family Medical History / Comment(s): gallbladder issues General Exam - General Exam Comments Initial Comments: General: The patient is awake and alert, in no distress, and does not appear acutely ill. Eye: Pupils are equal, round and reactive to light, extra-ocular movements are intact. No nystagmus. There is normal conjunctiva bilaterally. No signs of icterus. Cardiovascular: There is a regular rate and rhythm. No murmur, rub or gallop is appreciated. Respiratory: Lungs are clear to auscultation, respirations are non-labored, breath sounds are equal. No wheezes, stridor, rales, or rhonchi. Gastrointestinal: Distended abdomen consistent with , non-tender abdomen without masses or organomegaly noted. There is no rebound or guarding present. No CVA tenderness. Bowel sounds are unremarkable. Musculoskeletal: Patient has reproducible tenderness to palpation of the lumbar spine bilaterally. Increases with twisting. No midline tenderness to palpation of these thoracic or lumbar spine. Normal ROM, no tenderness. Strength 5/5 of the lower extremity is bilaterally. Sensation intact of the lower extremity is bilaterally. Pulses equal bilaterally 2+. Neurological: A&O x 3. CN II-XII intact, There are no obvious motor or sensory deficits. Coordination appears grossly intact. Speech is normal. Skin: Skin is warm and dry and no rashes or lesions are noted. Psychiatric: Cooperative, appropriate mood & affect, normal judgment. Limitations: no limitations Course Vital Signs 08/13/19 08/13/19 18:20 21:02 Temperature 98.3 F Pulse Rate 109 H 81 Respiratory 18 18 Rate Blood Pressure 107/61 116/59 O2 Sat by Pulse 96 97 Oximetry Medical Decision Making - Medical Decision Making 24-year-old female currently 28 weeks presents emergency for evaluation of low back pain. Patient states she initially thought she had a strain on the right side. She states is now on the left side. Patient's history of pyelonephritis. Denies fevers. Urinalysis does not reveal findings consistent with infection. Patient's hemoglobin consistent with anemia of . Patient denies hematuria. Ultrasound negative for nephrolithiasis. Patient's pain appears musculoskeletal in nature and increases with movement. Patient palpation. No history of falls. No midline tenderness patient was evaluated and person M attending provider Dr. Lynn. At this time we feel patient is stable for discharge to mother baby for monitoring. Patient agreeable. Patient instructed to follow-up with [facility] and take Tylenol for pain as needed. Discharged appearing well - Lab Data Result diagrams: 08/13/19 19:20 08/13/19 19:20 Lab Results 08/13/19 08/13/19 08/13/19 Range/Units 19:20 19:20 19:30 WBC 8.3 (3.8-10.6) k/uL RBC 4.01 (3.80-5.40) m/uL Hgb 10.5 L (11.4-16.0) gm/dL Hct 32.4 L (34.0-46.0) % MCV 80.8 (80.0-100.0) fL MCH 26.1 (25.0-35.0) pg MCHC 32.3 (31.0-37.0) g/dL RDW 14.2 (11.5-15.5) % Plt Count 277 (150-450) k/uL Neutrophils % 72 % Lymphocytes % 16 % Monocytes % 6 % Eosinophils % 1 % Basophils % 3 % Neutrophils # 6.0 (1.3-7.7) k/uL Lymphocytes # 1.4 (1.0-4.8) k/uL Monocytes # 0.5 (0-1.0) k/uL Eosinophils # 0.1 (0-0.7) k/uL Basophils # 0.2 (0-0.2) k/uL Sodium 138 (137-145) mmol/L Potassium 3.9 (3.5-5.1) mmol/L Chloride 108 H (98-107) mmol/L Carbon Dioxide 22 (22-30) mmol/L Anion Gap 8 mmol/L BUN 8 (7-17) mg/dL Creatinine 0.48 L (0.52-1.04) mg/dL Est GFR (CKD-EPI)AfAm >90 (>60 ml/min/1.73 sqM) Est GFR (CKD-EPI)NonAf >90 (>60 ml/min/1.73 sqM) Glucose 100 H (74-99) mg/dL Calcium 9.0 (8.4-10.2) mg/dL Total Bilirubin 0.1 L (0.2-1.3) mg/dL AST 24 (14-36) U/L ALT 21 (9-52) U/L Alkaline Phosphatase 135 H (38-126) U/L Total Protein 6.8 (6.3-8.2) g/dL Albumin 3.5 (3.5-5.0) g/dL Urine Color Yellow Urine Appearance Clear (Clear) Urine pH 6.0 (5.0-8.0) Ur Specific [place] 1.019 (1.001-1.035) Urine Protein Negative (Negative) Urine Glucose (UA) Negative (Negative) Urine Ketones Negative (Negative) Urine Blood Negative (Negative) Urine Nitrite Negative (Negative) Urine Bilirubin Negative (Negative) Urine Urobilinogen <2.0 (<2.0) mg/dL Ur Leukocyte Esterase Trace H (Negative) Urine RBC 1 (0-5) /hpf Urine WBC 3 (0-5) /hpf Ur Squamous Epith Cells 5 H (0-4) /hpf Urine Mucus Few H (None) /hpf Disposition Clinical Impression: Low back pain Disposition: HOME SELF-CARE Condition: Good Instructions (If sedation given, give patient instructions): Acute Low Back Pain (ED) Additional Instructions: Please use medication as discussed. Please go immediately to mother baby floor--after discharge. Follow-up with OBGYN in next 24-48 hours. Please return to emergency room if the symptoms increase or worsen or for any other concerns. Is patient prescribed a controlled substance at d/c from ED?: No Referrals: None,Stated [Primary Care Provider] - 1-2 days Time of Disposition: 20:50
[2019-08-13] MEDS ORDERED: ACETAMINOPHEN TAB 325 MG TAB PO STA (18:54)
[2019-08-13 19:35] LABS: Basophils # (A) 0.2 k/uL (0-0.2); Basophils % (A) 3 %; Eosinophils # (A) 0.1 k/uL (0-0.7); Eosinophils % (A) 1 %; HCT 32.4 % (34.0-46.0); HGB 10.5 gm/dL (11.4-16.0); Lymphocytes # (A) 1.4 k/uL (1.0-4.8); Lymphocytes % (A) 16 %; MCH 26.1 pg (25.0-35.0); MCHC 32.3 g/dL (31.0-37.0); MCV 80.8 fL (80.0-100.0); Mean Platelet Volume 6.7; Monocytes # (A) 0.5 k/uL (0-1.0); Monocytes % (A) 6 %; Neutrophils % (A) 72 %; Platelet Count 277 k/uL (150-450); RBC 4.01 m/uL (3.80-5.40); RDW 14.2 % (11.5-15.5); WBC 8.3 k/uL (3.8-10.6)
[2019-08-13 19:42] LABS: ALT 21 U/L (9-52); AST 24 U/L (14-36); African American GFR (CKD) >90 (>60 ml/min/1.73 sqM); Albumin 3.5 g/dL (3.5-5.0); Alkaline Phosphatase 135 U/L (38-126); Anion Gap 8 mmol/L; Blood Urea Nitrogen 8 mg/dL (7-17); Carbon Dioxide 22 mmol/L (22-30); Chloride 108 mmol/L (98-107); Glucose 100 mg/dL (74-99); Potassium 3.9 mmol/L (3.5-5.1); Sodium 138 mmol/L (137-145); Total Bilirubin 0.1 mg/dL (0.2-1.3); Total Protein 6.8 g/dL (6.3-8.2)
--- NOTE | 2019-08-13 19:45 | US ---
EXAMINATION TYPE: US renals and bladder DATE OF EXAM: 08/13/2019 COMPARISON: NONE CLINICAL HISTORY: , flank pain, concern for stone. bilateral flank pain, h/o UTI, h/o renal s tones over a year ago, patient is 28 weeks EXAM MEASUREMENTS: Right Kidney: 10.0 x 4.6 x 5.9 cm Left Kidney: 11.2 x 4.7 x 5.4 cm *renals slightly obscured by bowel gas and enlarging UT Right Kidney: No hydronephrosis or masses seen Left Kidney: No hydronephrosis or masses seen Bladder: mobile debris seen, otherwise wnl IMPRESSION: There is no hydronephrosis. Kidneys have normal size. There is some echogenicity in the urinary bladder that could relate to some infection or minimal bloo d clot.
--- NOTE | 2019-08-13 19:48 | US ---
EXAMINATION TYPE: US OB >= 14 wk fetus DATE OF EXAM: 08/13/2019 COMPARISON: None CLINICAL HISTORY: back pain, vag bleeding 1.5 weeks po Pain TECHNIQUE: OBTA GESTATIONAL AGE / DATING Physician Established: (27 weeks/5 days) EDC: 11/07/2019 Dates by LMP: LMP unknown Dates by First Scan: (28 weeks/0 days) EDC: 11/05/2019 Dates by Current Scan: (28 weeks/3 days) EDC: 11/02/2019 SURVEY IUP: Single PLACENTA: Fundal PREVIA: No Previa SHIRA: 22.5-25.7cm higher end of normal CERVICAL LENGTH (transabdominal: norm > 3.0cm): 3.3 cm BIOMETRY PRESENTATION: Vertex LIE: Longitudinal BPD: 7.2 cm 29 weeks / 0 days HC: 26.1 cm 28 weeks / 3 days AC: 24.5 cm 28 weeks / 5 days FL: 5.5 cm 29 weeks / 1 days ESTIMATED WEIGHT IN GRAMS: 1295 grams ESTIMATED WEIGHT IN LBS/OZ: 2 lbs. 14 oz. WEIGHT PERCENTAGE BASED ON ESTABLISHED DATES: 81% HC/AC: 1.1 Normal FL/AC: 22.5 Normal HEART RATE: 149 bpm RHYTHM: Normal IMPRESSION: There is satisfactory growth compared to original exam of 03/11/2019. No evidence of placenta pr evia or placenta abruption.
[2019-08-13 20:05] LABS: Appearance,Urine Clear (Clear); Bilirubin,Urine Negative (Negative); Blood,Urine Negative (Negative); Color,Urine Yellow; Glucose,Urine (UA) Negative (Negative); Ketones,Urine Negative (Negative); Leukocyte Esterase,Urine Trace (Negative); Mucus,Urine Few /hpf; Nitrite,Urine Negative (Negative); Protein,Urine Negative (Negative); RBC,Urine 1 /hpf (0-5); Specific Gravity,Urine 1.019 (1.001-1.035); Squamous Epithelial Cell,Urine 5 /hpf (0-4); Urobilinogen,Urine <2.0 mg/dL (<2.0); WBC,Urine 3 /hpf (0-5)
[2019-08-13 21:04] VITALS: BP 116/59; PULSE 81
== END 2019-08-13 21:03 | disposition home or self-care (01) ==
LOC: EC 18:02
DX: O26.893 Other specified pregnancy related conditions, third trimester (principal); M54.5 Low back pain; Z87.442 Personal history of urinary calculi; Z90.49 Acquired absence of other specified parts of digestive tract; Z3A.28 28 weeks gestation of pregnancy
CPT/HCPCS: 36415; 76770; 76805; 80053; 81001; 85025; 99284

== ENCOUNTER 2019-08-13 21:13 | Outpatient (CLI) | payer OTHER ==
[2019-08-13 22:51] VITALS: BP 117/56; PULSE 89; RESP 16; TEMP 97.2
--- NOTE | 2019-08-15 10:46 | P.MSEPDOC ---
Presenting Problems - Arrival Data Date of Arrival on Unit: 08/13/19 Time of Arrival on Unit: 21:22 Mode of Transport: Wheelchair - Complaint OB-Reason for Admission/Chief Complaint: Pain Comment: lower back pain rated at a 9 Medical History - Information : 3 Para: 2 Term: 2 : 0 Abortions: Spontaneous or Elective: 0 Number of Living Children: 2 - Gestational Age Gestational Age by ALBERTO (wks/days): 27 Weeks and 5 Days - History Complications: No Care Review of Systems - Review of Systems Constitutional: No problems Breast: No problems ENT: No problems Cardiovascular: No problems Respiratory: No problems Gastrointestinal: No problems Genitourinary: No problems Musculoskeletal: No problems Neurological: No problems Skin: No problems Vital Signs - Temperature Temperature: 97.2 F - Pulse Right Sitting Brachial Pulse Rate: 89 - Respirations Respiratory Rate: 16 O2 Sat by Pulse Oximetry: 98 - Blood Pressure Right Arm Sitting Blood Pressure: 117/56 Blood Pressure Mean: 76 Blood Pressure Source: Automatic Cuff Medical Screen Scoring (Pre) - Cervical Exam Dilation: Exam Deferred Effacement: Exam Deferred Membranes: Intact - Uterine Contractions Frequency: N/A Duration: N/A Intensity: N/A - Maternal Vital Signs Maternal Temperature: N/A Signs of Preeclampsia: N/A Maternal Respirations: N/A - Maternal Trauma Maternal Trauma: N/A - Assessment - Baby A Baseline FHR: 145 Heart Rate - NICHD Category: Category I (Normal) = 0 NST: Reactive - Total Score - Baby A Total Score - Baby A: 0 - Total Score - Baby B Total Score - Baby B: 0 - Total Score - Baby C Total Score - Baby C: 0 - Level of Risk - Baby A Level of Risk - Baby A: Low (0-5) - Level of Risk - Baby B Level of Risk - Baby B: Low (0-5) - Level of Risk - Baby C Level of Risk - Baby C: Low (0-5) Physician Notification (Pre) - Physician Notified Physician Notified Date: 08/13/19 Physician Notified Time: 21:55 New Order Received: Yes (d/c) Disposition - Disposition OB Disposition: Discharge to home, Written follow up instructions reviewed Discharge Date: 08/13/19 Discharge Time: 22:05 I agree with the RN Medical Screening Exam: Yes Risk & Benefit of care provided described in d/c instruction: Yes Diagnosis: LOW BACK PAIN
== END 2019-08-13 22:05 | disposition home or self-care (01) ==
LOC: FBPOP 21:13
PROVIDERS: ATTEND Obstetrics & Gynecology Obstetrics
DX: O99.89 Other specified diseases and conditions complicating pregnancy, childbirth and the puerperium (principal); M54.5 Low back pain; Z3A.27 27 weeks gestation of pregnancy
CPT/HCPCS: 59025; G0463; 99213

== ENCOUNTER 2019-09-14 18:45 | Outpatient (CLI) | payer OTHER ==
[2019-09-14 19:56] VITALS: BP 108/55; PULSE 83; RESP 16; TEMP 97.3
--- NOTE | 2019-09-15 08:52 | P.MSEPDOC ---
Presenting Problems - Arrival Data Date of Arrival on Unit: 09/14/19 Time of Arrival on Unit: 18:45 Mode of Transport: Wheelchair - Complaint OB-Reason for Admission/Chief Complaint: Rule Out SROM Medical History - Information : 3 Para: 2 Term: 2 : 0 Abortions: Spontaneous or Elective: 0 Number of Living Children: 2 - Gestational Age Gestational Age by ALBERTO (wks/days): 32 Weeks and 2 Days Review of Systems - Review of Systems Constitutional: No problems Breast: No problems ENT: No problems Cardiovascular: No problems Respiratory: No problems Gastrointestinal: No problems Genitourinary: No problems Musculoskeletal: No problems Neurological: No problems Skin: No problems Vital Signs - Temperature Temperature: 97.3 F - Pulse Right Brachial Pulse Rate: 83 Pulse Assessment Method: Automatic Cuff - Respirations Respiratory Rate: 16 Oxygen Delivery Method: Room Air O2 Sat by Pulse Oximetry: 98 - Blood Pressure Right Arm Blood Pressure: 108/55 Blood Pressure Mean: 72 Blood Pressure Source: Automatic Cuff Medical Screen Scoring (Pre) - Cervical Exam Dilation: 0 cm = 0 Membranes: Intact - Uterine Contractions Frequency: N/A Duration: N/A Intensity: N/A - Maternal Vital Signs Maternal Temperature: N/A Maternal Blood Pressure: N/A Signs of Preeclampsia: N/A Maternal Respirations: N/A - Maternal Trauma Maternal Trauma: N/A - Assessment - Baby A Baseline FHR: 135 Heart Rate - NICHD Category: Category I (Normal) = 0 NST: Reactive Position: N/A Station: N/A - Total Score - Baby A Total Score - Baby A: 0 - Total Score - Baby B Total Score - Baby B: 0 - Total Score - Baby C Total Score - Baby C: 0 - Level of Risk - Baby A Level of Risk - Baby A: Low (0-5) - Level of Risk - Baby B Level of Risk - Baby B: Low (0-5) - Level of Risk - Baby C Level of Risk - Baby C: Low (0-5) Physician Notification (Pre) - Physician Notified Physician Notified Date: 09/14/19 Physician Notified Time: 19:21 New Order Received: Yes - Notification Comment Comment: Dr. Bowens given report on pt in tr. Pt c/o. VS wnl. FFN collected, Amnisure. collected, Amnisure negative. Vag exam of closed thick high. Orders recieved to d/c pt. to home. To educate pt to follow up with Dr. Roy Disposition - Disposition OB Disposition: Discharge to home Discharge Date: 09/14/19 Discharge Time: 19:30 I agree with the RN Medical Screening Exam: Yes Risk & Benefit of care provided described in d/c instruction: Yes Diagnosis: FALSE LABOR BEFORE 37 COMPLETED WEEKS OF GEST, THIRD TRI
== END 2019-09-14 19:30 | disposition home or self-care (01) ==
LOC: FBPOP 18:45
PROVIDERS: ATTEND Obstetrics & Gynecology
DX: O47.03 False labor before 37 completed weeks of gestation, third trimester (principal); Z3A.32 32 weeks gestation of pregnancy
CPT/HCPCS: 59025; 84112; G0463; 99213

== ENCOUNTER 2019-09-30 19:31 | Emergency (ER) | payer OTHER ==
[2019-09-30] MEDS ORDERED: SODIUM CHLORIDE 0.9% 1,000 ML IV STA (20:16)
[2019-09-30] MEDS ORDERED: SODIUM CHLORIDE 0.9% 500 ML 500 ML IV STA (20:16)
[2019-09-30] MEDS ORDERED: diphenhydrAMINE 50 MG/ML 1 ML VIAL IVP STA (20:16)
[2019-09-30] MEDS ORDERED: METOCLOPRAMIDE 5 MG/ML 2 ML VIAL IVP STA (20:16)
[2019-09-30 20:55] LABS: Basophils % (A) 0 %; Eosinophils % (A) 1 %; HCT 32.6 % (34.0-46.0); HGB 10.9 gm/dL (11.4-16.0); Lymphocytes # (A) 0.8 k/uL (1.0-4.8); Lymphocytes % (A) 11 %; MCH 25.1 pg (25.0-35.0); MCHC 33.3 g/dL (31.0-37.0); Mean Platelet Volume 7.2; Microcytosis Slight; Monocytes # (A) 0.4 k/uL (0-1.0); Monocytes % (A) 6 %; Neutrophils # (A) 6.1 k/uL (1.3-7.7); Neutrophils % (A) 81 %; Platelet Count 271 k/uL (150-450); Poikilocytosis Slight; RBC 4.32 m/uL (3.80-5.40); RDW 14.8 % (11.5-15.5); WBC 7.5 k/uL (3.8-10.6)
[2019-09-30 20:59] LABS: MCV 75.5 fL (80.0-100.0)
[2019-09-30 21:07] LABS: ALT 21 U/L (9-52); AST 20 U/L (14-36); African American GFR (CKD) >90 (>60 ml/min/1.73 sqM); Albumin 3.3 g/dL (3.5-5.0); Alkaline Phosphatase 260 U/L (38-126); Anion Gap 8 mmol/L; Blood Urea Nitrogen 10 mg/dL (7-17); Calcium 8.7 mg/dL (8.4-10.2); Carbon Dioxide 21 mmol/L (22-30); Chloride 107 mmol/L (98-107); Glucose 108 mg/dL (74-99); Non-African American GFR(CKD) >90 (>60 ml/min/1.73 sqM); Potassium 3.6 mmol/L (3.5-5.1); Sodium 136 mmol/L (137-145); Total Bilirubin 0.4 mg/dL (0.2-1.3); Total Protein 6.5 g/dL (6.3-8.2)
[2019-09-30 21:39] LABS: Appearance,Urine Cloudy (Clear); Bilirubin,Urine Negative (Negative); Blood,Urine Negative (Negative); Color,Urine Yellow; Glucose,Urine (UA) Negative (Negative); Ketones,Urine Negative (Negative); Leukocyte Esterase,Urine Large (Negative); Mucus,Urine Many /hpf; Nitrite,Urine Negative (Negative); Protein,Urine 1+ (Negative); RBC,Urine 2 /hpf (0-5); Specific Gravity,Urine 1.027 (1.001-1.035); Squamous Epithelial Cell,Urine 34 /hpf (0-4); Urobilinogen,Urine <2.0 mg/dL (<2.0); WBC,Urine 18 /hpf (0-5)
[2019-09-30] MEDS ORDERED: cefTRIAXone IN SWFI 1,000 MG/10 ML SYRINGE IVP STA (21:41)
--- NOTE | 2019-09-30 21:43 | ED ---
Nausea/Vomiting/Diarrhea HPI - General Chief complaint: Nausea/Vomiting/Diarrhea Stated complaint: Vomiting, 35 weeks Time Seen by Provider: 09/30/19 19:49 Source: patient Mode of arrival: ambulatory Limitations: no limitations - History of Present Illness Initial comments: 24-year-old female patient presents to the emergency department today for evaluation of vomiting and diarrhea. Patient states that she started vomiting last evening. States she's vomited several times today and is unable to keep down any food or fluids. She is currently drinking Powerade in the room. She denies any abdominal pain. Denies abnormal vaginal bleeding or discharge. Denies fever or chills with this. States she has 2 sons who are sick with similar symptoms. She is 35 weeks , . Patient denies any recent rash, shortness breath, chest pain, back pain, numbness, tingling, dizziness, weakness, hematuria, dysuria, urinary urgency, urinary frequency, headache, visual changes, or any other complaints. - Related Data Home Medications Medication Instructions Recorded Confirmed Pnv,Calcium 72/Iron/Folic Acid 1 tab PO DAILY 08/13/19 09/14/19 [ Plus Tablet] Previous Rx's Medication Instructions Recorded Cephalexin [Keflex] 500 mg PO BID #14 cap 09/30/19 Allergies Allergy/AdvReac Type Severity Reaction Status Date / Time No Known Allergies Allergy Verified 09/30/19 19:41 Review of Systems ROS Statement: Those systems with pertinent positive or pertinent negative responses have been documented in the HPI. ROS Other: All systems not noted in ROS Statement are negative. Past Medical History Past Medical History: No Reported History Additional Past Medical History / Comment(s): uti/kidney infection years ago(was hospitalized)., recent hospitalization for Gall Bladder problems (Sep 2018), kidney stones History of Any Multi-Drug Resistant Organisms: None Reported Past Surgical History: Cholecystectomy Additional Past Surgical History / Comment(s): . Past Anesthesia/Blood Transfusion Reactions: No Reported Reaction Additional Past Anesthesia/Blood Transfusion Reaction / Comment(s): Has never had anesthesia Past Psychological History: No Psychological Hx Reported Smoking Status: Never smoker Past Alcohol Use History: None Reported Past Drug Use History: None Reported - Past Family History Father History Unknown: Yes Family Medical History: No Reported History Mother Family Medical History: No Reported History Additional Family Medical History / Comment(s): gallbladder issues General Exam Limitations: no limitations General appearance: alert, in no apparent distress, other (Physical well- developed, well-nourished adult female patient in no acute distress. Vital signs upon presentation are temperature 98.1F, pulse 98, respiration 16, blood pressure 130/74, pulse ox 97% on room air.) Eye exam: Present: normal appearance, PERRL, EOMI. Absent: scleral icterus, conjunctival injection, periorbital swelling ENT exam: Present: normal exam, normal oropharynx, mucous membranes moist Neck exam: Present: normal inspection. Absent: tenderness, meningismus, lymphadenopathy Respiratory exam: Present: normal lung sounds bilaterally. Absent: respiratory distress, wheezes, rales, rhonchi, stridor Cardiovascular Exam: Present: regular rate, normal rhythm, normal heart sounds. Absent: systolic murmur, diastolic murmur, rubs, gallop, clicks GI/Abdominal exam: Present: soft, normal bowel sounds, other (Gravid abdomen). Absent: distended, tenderness, guarding, rebound, rigid Back exam: Present: normal inspection. Absent: CVA tenderness (R), CVA tenderness (L) Neurological exam: Present: alert, oriented X3, CN II-XII intact Psychiatric exam: Present: normal affect, normal mood Skin exam: Present: warm, dry, intact, normal color. Absent: rash Course Vital Signs 09/30/19 09/30/19 19:39 22:05 Temperature 98.1 F 97.7 F Pulse Rate 98 72 Respiratory 16 18 Rate Blood Pressure 130/74 136/78 O2 Sat by Pulse 97 99 Oximetry Medical Decision Making - Medical Decision Making 24-year-old female patient is 35 weeks presents to the emergency department today for evaluation of vomiting and diarrhea. Physical examination revealed a nontender gravid abdomen. Afebrile with normal vital signs. She is drinking in the room. Had no episodes of vomiting here. Labs reviewed and are unremarkable. She did show evidence for urinary tract infection which we'll dalton at with Keflex and 1 dose of IV Rocephin. She does report feel movement denies vaginal bleeding or discharge. She does have 2 sons with similar symptoms. Symptoms and history are consistent with gastroenteritis. She'll be discharged to follow-up with LEGUILLON DEBEADER or primary care physician for recheck in 1-2 days. Return parameters were discussed in detail. She verbalizes understanding and agrees with this plan - Lab Data Result diagrams: 09/30/19 20:29 09/30/19 20:29 Lab Results 09/30/19 09/30/19 09/30/19 Range/Units 20:29 20:29 20:29 WBC 7.5 (3.8-10.6) k/uL RBC 4.32 (3.80-5.40) m/uL Hgb 10.9 L (11.4-16.0) gm/dL Hct 32.6 L (34.0-46.0) % MCV 75.5 L D (80.0-100.0) fL MCH 25.1 (25.0-35.0) pg MCHC 33.3 (31.0-37.0) g/dL RDW 14.8 (11.5-15.5) % Plt Count 271 (150-450) k/uL Neutrophils % 81 % Lymphocytes % 11 % Monocytes % 6 % Eosinophils % 1 % Basophils % 0 % Neutrophils # 6.1 (1.3-7.7) k/uL Lymphocytes # 0.8 L (1.0-4.8) k/uL Monocytes # 0.4 (0-1.0) k/uL Eosinophils # 0.0 (0-0.7) k/uL Basophils # 0.0 (0-0.2) k/uL Poikilocytosis Slight Microcytosis Slight Sodium 136 L (137-145) mmol/L Potassium 3.6 (3.5-5.1) mmol/L Chloride 107 (98-107) mmol/L Carbon Dioxide 21 L (22-30) mmol/L Anion Gap 8 mmol/L BUN 10 (7-17) mg/dL Creatinine 0.49 L (0.52-1.04) mg/dL Est GFR (CKD-EPI)AfAm >90 (>60 ml/min/1.73 sqM) Est GFR (CKD-EPI)NonAf >90 (>60 ml/min/1.73 sqM) Glucose 108 H (74-99) mg/dL Calcium 8.7 (8.4-10.2) mg/dL Total Bilirubin 0.4 (0.2-1.3) mg/dL AST 20 (14-36) U/L ALT 21 (9-52) U/L Alkaline Phosphatase 260 H (38-126) U/L Total Protein 6.5 (6.3-8.2) g/dL Albumin 3.3 L (3.5-5.0) g/dL Lipase 55 (23-300) U/L Urine Color Yellow Urine Appearance Cloudy H (Clear) Urine pH 6.0 (5.0-8.0) Ur Specific [place] 1.027 (1.001-1.035) Urine Protein 1+ H (Negative) Urine Glucose (UA) Negative (Negative) Urine Ketones Negative (Negative) Urine Blood Negative (Negative) Urine Nitrite Negative (Negative) Urine Bilirubin Negative (Negative) Urine Urobilinogen <2.0 (<2.0) mg/dL Ur Leukocyte Esterase Large H (Negative) Urine RBC 2 (0-5) /hpf Urine WBC 18 H (0-5) /hpf Ur Squamous Epith Cells 34 H (0-4) /hpf Urine Mucus Many H (None) /hpf Disposition Clinical Impression: Vomiting, Diarrhea Disposition: HOME SELF-CARE Condition: Good Instructions (If sedation given, give patient instructions): Gastroenteritis ( ED), Acute Nausea and Vomiting (ED), Acute Diarrhea (ED) Additional Instructions: Increase fluids. Rest. Follow-up with your LEGUILLON DEBEADER in your primary care physician for recheck in 1-2 days. Return to the emergency department immediately for any new, worsening, or concerning symptoms. Prescriptions: Cephalexin [Keflex] 500 mg PO BID #14 cap Is patient prescribed a controlled substance at d/c from ED?: No Referrals: None,Stated [Primary Care Provider] - 1-2 days Time of Disposition: 21:43
[2019-09-30 22:07] VITALS: BP 136/78; PULSE 72; RESP 18; TEMP 97.7
== END 2019-09-30 22:06 | disposition home or self-care (01) ==
LOC: EC 19:31
DX: O21.9 Vomiting of pregnancy, unspecified (principal); O99.89 Other specified diseases and conditions complicating pregnancy, childbirth and the puerperium; R19.7 Diarrhea, unspecified; O23.43 Unspecified infection of urinary tract in pregnancy, third trimester; Z3A.35 35 weeks gestation of pregnancy
CPT/HCPCS: 36415; 80053; 83690; 85025; 81001; 99284; 96374; 96375 ×2; 96361; J1200; J2765; J0696

== ENCOUNTER 2019-10-27 14:04 | Outpatient (CLI) | payer OTHER ==
[2019-10-27 14:39] VITALS: BP 128/71; PULSE 106; RESP 16; TEMP 96.5
--- NOTE | 2019-10-28 11:37 | P.MSEPDOC ---
Presenting Problems - Arrival Data Date of Arrival on Unit: 10/27/19 Time of Arrival on Unit: 14:07 Mode of Transport: Ambulatory - Complaint OB-Reason for Admission/Chief Complaint: Possible Onset of Labor Medical History - Information : 3 Para: 2 Term: 2 : 0 Abortions: Spontaneous or Elective: 0 Number of Living Children: 2 - Gestational Age Gestational Age by ALBERTO (wks/days): 38 Weeks and 3 Days Review of Systems - Review of Systems Constitutional: No problems Breast: No problems ENT: No problems Cardiovascular: No problems Respiratory: No problems Gastrointestinal: No problems Genitourinary: No problems Musculoskeletal: No problems Neurological: No problems Skin: No problems Vital Signs - Temperature Temperature: 96.5 F Temperature Source: Oral - Pulse Right Sitting Brachial Pulse Rate: 106 Pulse Assessment Method: Automatic Cuff - Respirations Respiratory Rate: 16 O2 Sat by Pulse Oximetry: 99 - Blood Pressure Right Arm Blood Pressure: 128/71 Blood Pressure Mean: 90 Blood Pressure Source: Automatic Cuff Medical Screen Scoring (Pre) - Cervical Exam Dilation: 0 cm = 0 Membranes: Intact - Uterine Contractions Frequency: N/A Duration: N/A Intensity: N/A - Maternal Vital Signs Maternal Temperature: N/A Maternal Blood Pressure: N/A Signs of Preeclampsia: N/A Maternal Respirations: N/A - Maternal Trauma Maternal Trauma: N/A - Assessment - Baby A Baseline FHR: 130 Heart Rate - NICHD Category: Category I (Normal) = 0 NST: Reactive Position: N/A Station: N/A - Total Score - Baby A Total Score - Baby A: 0 - Total Score - Baby B Total Score - Baby B: 0 - Total Score - Baby C Total Score - Baby C: 0 - Level of Risk - Baby A Level of Risk - Baby A: Low (0-5) - Level of Risk - Baby B Level of Risk - Baby B: Low (0-5) - Level of Risk - Baby C Level of Risk - Baby C: Low (0-5) Physician Notification (Pre) - Physician Notified Physician Notified Date: 10/27/19 Physician Notified Time: 14:23 New Order Received: Yes (Discharge) Disposition - Disposition OB Disposition: Discharge to home Discharge Date: 10/27/19 Discharge Time: 14:32 I agree with the RN Medical Screening Exam: Yes Risk & Benefit of care provided described in d/c instruction: Yes Diagnosis: FALSE LABOR AT OR AFTER 37 COMPLETED WEEKS OF GESTATION
== END 2019-10-27 14:32 | disposition home or self-care (01) ==
LOC: FBPOP 14:04
PROVIDERS: ATTEND Obstetrics & Gynecology Obstetrics
DX: O47.1 False labor at or after 37 completed weeks of gestation (principal); Z3A.38 38 weeks gestation of pregnancy
CPT/HCPCS: 59025; G0463; 99213

== ENCOUNTER 2021-07-08 15:31 | Emergency (ER) | payer OTHER ==
[2021-07-08 16:08] VITALS: RESP 18
[2021-07-08 16:38] LABS: Anisocytosis Slight; Basophils % (A) 0 %; Eosinophils # (A) 0.1 k/uL (0-0.7); Eosinophils % (A) 1 %; HCT 34.9 % (34.0-46.0); HGB 11.7 gm/dL (11.4-16.0); Lymphocytes # (A) 1.5 k/uL (1.0-4.8); Lymphocytes % (A) 19 %; MCHC 33.4 g/dL (31.0-37.0); MCV 74.7 fL (80.0-100.0); Mean Platelet Volume 7.6; Microcytosis Slight; Monocytes # (A) 0.4 k/uL (0-1.0); Monocytes % (A) 5 %; Neutrophils # (A) 5.6 k/uL (1.3-7.7); Neutrophils % (A) 73 %; Platelet Count 288 k/uL (150-450); RBC 4.67 m/uL (3.80-5.40); RDW 16.1 % (11.5-15.5); WBC 7.7 k/uL (3.8-10.6)
[2021-07-08] MEDS ORDERED: ACETAMINOPHEN TAB 500 MG TAB PO STA (17:06)
[2021-07-08 17:47] LABS: Appearance,Urine Clear (Clear); Bacteria,Urine Occasional /hpf; Bilirubin,Urine Negative (Negative); Blood,Urine Negative (Negative); Color,Urine Light Yellow; Glucose,Urine (UA) Negative (Negative); Ketones,Urine Negative (Negative); Leukocyte Esterase,Urine Large (Negative); Mucus,Urine Rare /hpf; Nitrite,Urine Negative (Negative); PH, Urine 5.5 (5.0-8.0); Protein,Urine Negative (Negative); RBC,Urine 1 /hpf (0-5); Specific Gravity,Urine 1.008 (1.001-1.035); Squamous Epithelial Cell,Urine 1 /hpf (0-4); Urobilinogen,Urine <2.0 mg/dL (<2.0); WBC,Urine 20 /hpf (0-5)
[2021-07-08 17:49] VITALS: BP 115/67; PULSE 79; TEMP 98.9
--- NOTE | 2021-07-08 17:50 | US ---
EXAMINATION TYPE: Transabdominal ultrasound, obstetric less than 14 weeks. DATE OF EXAM: 07/08/2021 5:25 PM COMPARISON: NONE CLINICAL HISTORY: , bleeding. EXAM PERFORMED: Transabdominal (TA) grayscale sonographic images were obtained of the uterus, adnexa , and ovaries. EXAM MEASUREMENTS: GESTATIONAL AGE / DATING Physician Established: Not yet established Dates by LMP: LMP unknown Dates by First Scan: No previous this is first scan Dates by Current Scan for: (12 weeks/3 days) EDC: 01-17-22 MATERNAL ANATOMY Uterus: 12.0 x 7.5 x 9.3cm Right Ovary: 2.5 x 1.3 x 1.5cm and appears morphologically normal Left Ovary: 2.4 x 1.9 x 2.0cm and appears morphologically normal Post CDS / Adnexa: wnl GESTATION / SURVEY CRL: 5.9cm (12 weeks/3 days) Yolk Sac (normal less than 6mm): Not visualized Heart Rate: 159 bpm Rhythm: Normal IUP: Viable IUP Nuchal Translucency 10-14wks (normal less than 3mm): 1mm Age Appropriate Anatomy Cord Insertion: Visualized Limbs: Visualized Calvarium: Visualized Date of LMP: unknown Beta HcG (if available): Not available at this time IMPRESSION: 1. Single live intrauterine with estimated gestational age of 12 weeks 3 days by ultrasound crown-rump length. 2. heart rate 159 bpm. 3. Please note that this was not performed as an anatomic survey and recommend ultrasound at 18-20 we eks gestation for full anatomic survey.
--- NOTE | 2021-07-08 17:51 | ED ---
General Adult HPI - General Chief complaint: Vaginal Bleeding Stated complaint: Poss miscarriage Time Seen by Provider: 07/08/21 16:37 Source: patient, RN notes reviewed, old records reviewed Mode of arrival: ambulatory Limitations: no limitations - History of Present Illness Initial comments: Patient is a 26-year-old female with no remarkable past medical history except for prior miscarriage presents emergency department concern that she may be having an active miscarriage. Patient took an at home and urine test 2 weeks ago that was positive. Since that time she has been having intermittent vaginal bleeding. It is mostly spotting, however over the last few days she has noticed a slight increase in the amount of bleeding with clots. States this is what happened last time with her miscarriage. She also endorses cramping in her bilateral lower quadrants. Denies any nausea or vomiting. Denies any urinary complaints at this time. Denies chest pain, shortness breath, fevers, chills, cough. She presents emergency department over concern for a miscarriage. She has not yet followed up with CORPORATE AUDITOR for his current . She is not received an ultrasound yet.Patient states she was taken off control and is uncertain when her LMP was, as it is extremely irregular. She denies any concern for STI's at this time. - Related Data Home Medications Medication Instructions Recorded Confirmed Pnv,Calcium 72/Iron/Folic Acid 1 tab PO DAILY 08/13/19 07/08/21 [ Plus Tablet] Previous Rx's Medication Instructions Recorded Cephalexin [Keflex] 500 mg PO Q12HR 4 Days #8 cap 07/08/21 Pnv No.95/Ferrous Fum/Folic AC 1 each PO DAILY #30 tablet 07/08/21 [ Multivitamin Tablet] Allergies Allergy/AdvReac Type Severity Reaction Status Date / Time No Known Allergies Allergy Verified 07/08/21 17:57 Review of Systems ROS Statement: Those systems with pertinent positive or pertinent negative responses have been documented in the HPI. Review of Systems: CONST: Denies fever EYES: Denies blurry vision ENT: Denies nasal congestion C/V: Denies Chest pain RESP: Denies shortness of breath GI: Endorses crampy lower abdominal pain, typical for her period cramps : Endorses vaginal bleeding SKIN: Denies rash. MSK: Denies joint pain. NEURO: Denies headache ROS Other: All systems not noted in ROS Statement are negative. Past Medical History Past Medical History: No Reported History Additional Past Medical History / Comment(s): uti/kidney infection years ago(was hospitalized)., recent hospitalization for Gall Bladder problems (Sep 2018), kidney stones History of Any Multi-Drug Resistant Organisms: None Reported Past Surgical History: Cholecystectomy Additional Past Surgical History / Comment(s): . Past Anesthesia/Blood Transfusion Reactions: No Reported Reaction Additional Past Anesthesia/Blood Transfusion Reaction / Comment(s): Has never had anesthesia Past Psychological History: No Psychological Hx Reported Smoking Status: Never smoker Past Alcohol Use History: None Reported Past Drug Use History: None Reported - Past Family History Father History Unknown: Yes Family Medical History: No Reported History Mother Family Medical History: No Reported History Additional Family Medical History / Comment(s): gallbladder issues General Exam - General Exam Comments Initial Comments: General: Appears in no acute distress. HEAD: Normal with no signs of head trauma. EYES: PERRLA, EOMI, conjunctiva normal, no discharge. ENT: Hearing grossly intact, normal oropharynx. RESPIRATORY: Clear breath sounds bilaterally. No wheezes, rales, or rhonchi. C/V: Regular rate and rhythm. S1 and S2 auscultated, no edema, peripheral pulses 2+ and intact throughout ABD: Abd is soft, nontender, nondistended EXT: Normal range of motion, no obvious deformity SKIN: No rashes or lesions observed on exposed skin. NEURO: Alert and oriented 4. Limitations: no limitations Course Vital Signs 07/08/21 07/08/21 16:05 17:47 Temperature 98.7 F 98.9 F Pulse Rate 80 79 Respiratory 18 18 Rate Blood Pressure 119/69 115/67 O2 Sat by Pulse 97 97 Oximetry Medical Decision Making - Medical Decision Making Based on the patient's presentation and physical exam, I'm concerned for possible threatened miscarriage versus miscarriage and the patient. Therefore we will obtain basic lab for studies including a CBC, quantitative beta hCG, type and screen, urinalysis, and obtain an ultrasound of her pelvis to assess for definitive IUP. Patient will be given Tylenol for her. Parents. She was in agreement this plan. Patient's laboratory studies are remarkable for a relatively normal hemoglobin of 11.7. Urinalysis was positive for large amount of leukocyte esterase and 20 WBCs. This does not appear to be a contaminated catch. She appears to have a s ymptomatically bacteria. Patient's blood type is O+ and therefore does not require program. Patient's ultrasound revealed a definitive intrauterine with estimated gestational age of approximately 12 weeks and 3 [place] [address]. Reevaluation come patient's abdominal cramping is improved. I did discuss with her that she has a threatened miscarriage at this time. She is to follow up with CORPORATE AUDITOR. She was in agreement this plan. She has an appointment with her O B/CLEAN UP WORKER next week. The patient also has asymptomatic bacteriuria and we will treat this with keflex for 4 days. I will provide the patient with a prescription for Keflex 500 mg twice a day for 4 days, vitamins. I instructed the patient to follow up with their PCP in the next 3 days. I provided contact information for follow up with Dr. Bowens of OBGYN if pt cannot see her OBGYN. I explained that the patient should return to the emergency department if they experience any worsening symptoms. Strict return precautions were discussed with the patient. The patient expressed understanding of these instructions. I answered all questions that the patient had. The patient was discharged home in improved condition with their prescriptions and follow up information. - Lab Data Result diagrams: 07/08/21 16:11 Lab Results 07/08/21 07/08/21 07/08/21 Range/Units 16:11 16:13 16:38 WBC 7.7 (3.8-10.6) k/uL RBC 4.67 (3.80-5.40) m/uL Hgb 11.7 (11.4-16.0) gm/dL Hct 34.9 (34.0-46.0) % MCV 74.7 L (80.0-100.0) fL MCH 25.0 (25.0-35.0) pg MCHC 33.4 (31.0-37.0) g/dL RDW 16.1 H (11.5-15.5) % Plt Count 288 (150-450) k/uL MPV 7.6 Neutrophils % 73 % Lymphocytes % 19 % Monocytes % 5 % Eosinophils % 1 % Basophils % 0 % Neutrophils # 5.6 (1.3-7.7) k/uL Lymphocytes # 1.5 (1.0-4.8) k/uL Monocytes # 0.4 (0-1.0) k/uL Eosinophils # 0.1 (0-0.7) k/uL Basophils # 0.0 (0-0.2) k/uL Anisocytosis Slight Microcytosis Slight HCG, Quant mIU/mL Urine Color Light Yellow Urine Appearance Clear (Clear) Urine pH 5.5 (5.0-8.0) Ur Specific [place] 1.008 (1.001-1.035) Urine Protein Negative (Negative) Urine Glucose (UA) Negative (Negative) Urine Ketones Negative (Negative) Urine Blood Negative (Negative) Urine Nitrite Negative (Negative) Urine Bilirubin Negative (Negative) Urine Urobilinogen <2.0 (<2.0) mg/dL Ur Leukocyte Esterase Large H (Negative) Urine RBC 1 (0-5) /hpf Urine WBC 20 H (0-5) /hpf Ur Squamous Epith Cells 1 (0-4) /hpf Urine Bacteria Occasional H (None) /hpf Urine Mucus Rare H (None) /hpf Blood Type O Positive Blood Type Recheck O Pos Bld Type Recheck Status No Antibody Screen NEGATIVE Spec Expiration Date 07/11/2021 - 233707/08/21 Range/Units 16:55 WBC (3.8-10.6) k/uL RBC (3.80-5.40) m/uL Hgb (11.4-16.0) gm/dL Hct (34.0-46.0) % MCV (80.0-100.0) fL MCH (25.0-35.0) pg MCHC (31.0-37.0) g/dL RDW (11.5-15.5) % Plt Count (150-450) k/uL MPV Neutrophils % % Lymphocytes % % Monocytes % % Eosinophils % % Basophils % % Neutrophils # (1.3-7.7) k/uL Lymphocytes # (1.0-4.8) k/uL Monocytes # (0-1.0) k/uL Eosinophils # (0-0.7) k/uL Basophils # (0-0.2) k/uL Anisocytosis Microcytosis HCG, Quant 14832.4 mIU/mL Urine Color Urine Appearance (Clear) Urine pH (5.0-8.0) Ur Specific [place] (1.001-1.035) Urine Protein (Negative) Urine Glucose (UA) (Negative) Urine Ketones (Negative) Urine Blood (Negative) Urine Nitrite (Negative) Urine Bilirubin (Negative) Urine Urobilinogen (<2.0) mg/dL Ur Leukocyte Esterase (Negative) Urine RBC (0-5) /hpf Urine WBC (0-5) /hpf Ur Squamous Epith Cells (0-4) /hpf Urine Bacteria (None) /hpf Urine Mucus (None) /hpf Blood Type Blood Type Recheck Bld Type Recheck Status Antibody Screen Spec Expiration Date Disposition Clinical Impression: Asymptomatic bacteriuria, Threatened , , Vaginal bleeding during Disposition: HOME SELF-CARE Condition: Good Instructions (If sedation given, give patient instructions): Threatened Miscarriage (ED), (ED), Dysmenorrhea (ED) Prescriptions: Cephalexin [Keflex] 500 mg PO Q12HR 4 Days #8 cap Pnv No.95/Ferrous Fum/Folic AC [ Multivitamin Tablet] 1 each PO DAILY #30 tablet Is patient prescribed a controlled substance at d/c from ED?: No Referrals: None,Stated [Primary Care Provider] - 1-2 days Ho Bowens DO [Doctor of Osteopathic Medicine] - 1-2 days
[2021-07-08] MEDS ORDERED: CEPHALEXIN 500 MG CAP PO STA (17:55)
== END 2021-07-08 18:29 | disposition home or self-care (01) ==
LOC: EC 15:31
DX: O20.0 Threatened abortion (principal); R82.71 Bacteriuria; Z87.442 Personal history of urinary calculi; Z87.440 Personal history of urinary (tract) infections; Z90.49 Acquired absence of other specified parts of digestive tract; Z3A.12 12 weeks gestation of pregnancy
CPT/HCPCS: 36415; 76801; 76813; 81001; 84702; 85025; 86850; 86900; 86901; 99284

== ENCOUNTER 2021-11-17 04:07 | Emergency (ER) | payer OTHER ==
[2021-11-17] MEDS ORDERED: ACETAMINOPHEN TAB 500 MG TAB PO STA (04:45)
[2021-11-17] MEDS ORDERED: IBUPROFEN 800 MG TAB PO STA (04:45)
--- NOTE | 2021-11-17 04:46 | ED ---
URI HPI - General Chief Complaint: Upper Respiratory Infection Stated Complaint: Sore Throat,SOB Time Seen by Provider: 11/17/21 04:08 Source: patient, RN notes reviewed, old records reviewed Mode of arrival: ambulatory Limitations: no limitations - History of Present Illness Initial Comments: This is a 26-year-old female playing with sore throat fever cough congestion and ear pain. Respiratory infection symptoms. No travel history sick contacts does have recent coronavirus test which is negative. Patient states symptoms are persistent and nonstop fever. Otherwise no significant medical history takes no medications. Patient is in no significant shortness of breath MD Complaint: cough, sore throat -: days(s) Severity: mild Severity scale (1-10): 2 Quality: sharp Consistency: constant Improves With: nothing Worsens With: nothing Context: sick contacts Associated Symptoms: fever, chills, cough, nausea Treatments Prior to Arrival: none - Related Data Home Medications Medication Instructions Recorded Confirmed Pnv,Calcium 72/Iron/Folic Acid 1 tab PO DAILY 08/13/19 07/08/21 [ Plus Tablet] Previous Rx's Medication Instructions Recorded Cephalexin [Keflex] 500 mg PO Q12HR 4 Days #8 cap 07/08/21 Pnv No.95/Ferrous Fum/Folic AC 1 each PO DAILY #30 tablet 07/08/21 [ Multivitamin Tablet] Dexamethasone [Decadron] 6 mg PO DAILY #7 tablet 11/17/21 Allergies Allergy/AdvReac Type Severity Reaction Status Date / Time No Known Allergies Allergy Verified 11/17/21 04:31 Review of Systems ROS Statement: Those systems with pertinent positive or pertinent negative responses have been documented in the HPI. ROS Other: All systems not noted in ROS Statement are negative. Past Medical History Past Medical History: No Reported History Additional Past Medical History / Comment(s): uti/kidney infection years ago(was hospitalized)., recent hospitalization for Gall Bladder problems (Sep 2018), kidney stones History of Any Multi-Drug Resistant Organisms: None Reported Past Surgical History: Cholecystectomy Additional Past Surgical History / Comment(s): . Past Anesthesia/Blood Transfusion Reactions: No Reported Reaction Additional Past Anesthesia/Blood Transfusion Reaction / Comment(s): Has never had anesthesia Past Psychological History: No Psychological Hx Reported Smoking Status: Never smoker Past Alcohol Use History: None Reported Past Drug Use History: None Reported - Past Family History Father History Unknown: Yes Family Medical History: No Reported History Mother Family Medical History: No Reported History Additional Family Medical History / Comment(s): gallbladder issues General Exam Limitations: no limitations General appearance: alert, in no apparent distress Head exam: Present: atraumatic, normocephalic, normal inspection Eye exam: Present: normal appearance, PERRL, EOMI. Absent: scleral icterus, conjunctival injection, periorbital swelling ENT exam: Present: normal exam, mucous membranes moist Neck exam: Present: normal inspection. Absent: tenderness, meningismus, lymphadenopathy Respiratory exam: Present: normal lung sounds bilaterally. Absent: respiratory distress, wheezes, rales, rhonchi, stridor Cardiovascular Exam: Present: regular rate, normal rhythm, normal heart sounds. Absent: systolic murmur, diastolic murmur, rubs, gallop, clicks GI/Abdominal exam: Present: soft, normal bowel sounds. Absent: distended, tenderness, guarding, rebound, rigid Extremities exam: Present: normal inspection, full ROM, normal capillary refill. Absent: tenderness, pedal edema, joint swelling, calf tenderness Back exam: Present: normal inspection Neurological exam: Present: alert, oriented X3, CN II-XII intact Psychiatric exam: Present: normal affect, normal mood Skin exam: Present: warm, dry, intact, normal color. Absent: rash Course Vital Signs 11/17/21 11/17/21 11/17/21 04:27 05:22 05:30 Temperature 100.2 F H 98.7 F Pulse Rate 108 H 101 H 94 Respiratory 22 16 Rate Blood Pressure 115/57 137/70 O2 Sat by Pulse 98 98 Oximetry - Reevaluation(s) Reevaluation #1: Medical record is reviewed Symptoms improved here in the ER Patient informed results and questions answered Medical Decision Making - Medical Decision Making 26 female presenting with fever bilateral ear pain nausea cough congestion and sore throat. Concern for coronavirus, testing is negative chest x-rays negative patient can be discharged home - Lab Data Lab Results 11/17/21 Range/Units 04:32 Coronavirus (PCR) Not Detected (Not Detectd) - Radiology Data Radiology results: report reviewed (Chest x-rays negative for acute disease), image reviewed Disposition Clinical Impression: Viral infection Disposition: HOME SELF-CARE Condition: Good Instructions (If sedation given, give patient instructions): Coronavirus Disease 2019 (COVID-19) Prescriptions: Dexamethasone [Decadron] 6 mg PO DAILY #7 tablet Is patient prescribed a controlled substance at d/c from ED?: No Referrals: None,Stated [Primary Care Provider] - 1-2 days
[2021-11-17 05:23] VITALS: BP 137/70; RESP 16
[2021-11-17 05:30] VITALS: PULSE 94; TEMP 98.7
--- NOTE | 2021-11-17 05:57 | XR ---
EXAMINATION TYPE: XR chest 1V portable DATE OF EXAM: 11/17/2021 COMPARISON: 10/01/2009 HISTORY: Cough TECHNIQUE: Single view FINDINGS: Heart and mediastinum are normal. Lungs are clear. Diaphragm is normal. Bony thorax is inta ct. IMPRESSION: Normal chest. No change.
[2021-11-17] MEDS ORDERED: ONDANSETRON 4 MG ODT STARTER PACK 2 TAB BTL PO STA (06:10)
[2021-11-17] MEDS ORDERED: ACET/COD 300 MG/30 MG STARTER PACK 6 TAB BTL PO STA (06:10)
[2021-11-17] MEDS ORDERED: IBUPROFEN 600 MG STARTER PACK 4 TAB BTL PO STA (06:10)
[2021-11-17] MEDS ORDERED: dexAMETHasone 2 MG TAB PO STA (06:20)
== END 2021-11-17 06:31 | disposition home or self-care (01) ==
LOC: EC 04:07
DX: B34.9 Viral infection, unspecified (principal); Z20.822 Contact with and (suspected) exposure to COVID-19; Z87.442 Personal history of urinary calculi; Z90.49 Acquired absence of other specified parts of digestive tract
CPT/HCPCS: 99283; 87635; 71045; J8540; S0119

== ENCOUNTER 2023-12-09 19:38 | Emergency (ER) | payer OTHER ==
[2023-12-09 19:53] VITALS: RESP 18; TEMP 98.1
[2023-12-09 21:08] LABS: Basophils % (A) 0 %; Eosinophils # (A) 0.2 k/uL (0-0.7); Eosinophils % (A) 2 %; HCT 37.4 % (34.0-46.0); HGB 13.1 gm/dL (11.4-16.0); Lymphocytes # (A) 1.5 k/uL (1.0-4.8); Lymphocytes % (A) 13 %; MCH 29.6 pg (25.0-35.0); MCHC 34.9 g/dL (31.0-37.0); MCV 84.6 fL (80.0-100.0); Mean Platelet Volume 7.6; Monocytes # (A) 0.5 k/uL (0-1.0); Monocytes % (A) 4 %; Neutrophils # (A) 9.3 k/uL (1.3-7.7); Neutrophils % (A) 80 %; Platelet Count 312 k/uL (150-450); RBC 4.43 m/uL (3.80-5.40); RDW 12.4 % (11.5-15.5); WBC 11.6 k/uL (3.8-10.6)
[2023-12-09] MEDS: SODIUM CHLORIDE 0.9% 1,000 ML IV STA (21:09)
[2023-12-09 21:10] LABS: Appearance,Urine Clear (Clear); Bilirubin,Urine Negative (Negative); Blood,Urine Negative (Negative); Color,Urine Colorless; Glucose,Urine (UA) Negative (Negative); Ketones,Urine Negative (Negative); Leukocyte Esterase,Urine Negative (Negative); Nitrite,Urine Negative (Negative); Protein,Urine Negative (Negative); Specific Gravity,Urine 1.014 (1.001-1.035); Urobilinogen,Urine <2.0 mg/dL (<2.0)
[2023-12-09 21:14] LABS: ALT 82 U/L (4-34); AST 60 U/L (14-36); African American GFR (CKD) >90 (>60 ml/min/1.73 sqM); Alkaline Phosphatase 94 U/L (38-126); Anion Gap 8 mmol/L; Blood Urea Nitrogen 18 mg/dL (7-17); Calcium 8.9 mg/dL (8.4-10.2); Carbon Dioxide 20 mmol/L (22-30); Chloride 109 mmol/L (98-107); Glucose 103 mg/dL (74-99); Magnesium 2.1 mg/dL (1.6-2.3); Non-African American GFR(CKD) >90 (>60 ml/min/1.73 sqM); Phosphorus 3.6 mg/dL (2.5-4.5); Potassium 4.2 mmol/L (3.5-5.1); Sodium 137 mmol/L (137-145); Total Bilirubin 0.4 mg/dL (0.2-1.3); Total Protein 6.8 g/dL (6.3-8.2)
[2023-12-09 21:16] LABS: Prothrombin Time 10.8 sec (10.0-12.5)
[2023-12-09 21:23] LABS: NT-Pro-B-Type Natriuretic Pept <20 pg/mL
--- NOTE | 2023-12-09 21:39 | ED ---
Syncope HPI - General Chief Complaint: Syncope Stated Complaint: Chest Tightness,Headache Time Seen by Provider: 12/09/23 19:41 Source: patient, EMS, RN notes reviewed, old records reviewed Mode of arrival: EMS Limitations: no limitations - History of Present Illness Initial Comments: This is a 28-year-old female with recent hospital discharge for syncope possibly related to seizures. She had another episode again today. Patient also admits to some significant increased stress in her life likely prompting both these visits. Patient does have recent inpatient hospitalization overall testing did termed to be normal MD Complaint: loss of consciousness, felt faint, collapsed -: hour(s) Prodromal Symptoms: headache, vision changes, chest pain Description of Event: tonic-clonic movements -: second(s) Witnessed: yes - by bystander Injuries Sustained Associated with Event: None Current Symptoms: none - Related Data Home Medications Medication Instructions Recorded Confirmed Vit No.180/Iron/Folic 1 tab PO DAILY 08/13/19 07/08/21 [ Plus Tablet] Previous Rx's Medication Instructions Recorded Cephalexin [Keflex] 500 mg PO Q12HR 4 Days #8 cap 07/08/21 Pnv No.95/Ferrous Fum/Folic AC 1 each PO DAILY #30 tablet 07/08/21 [ Multivitamin Tablet] dexAMETHasone [Decadron] 6 mg PO DAILY #7 tablet 11/17/21 Allergies Allergy/AdvReac Type Severity Reaction Status Date / Time No Known Allergies Allergy Verified 12/09/23 19:49 Review of Systems ROS Statement: Those systems with pertinent positive or pertinent negative responses have been documented in the HPI. ROS Other: All systems not noted in ROS Statement are negative. Past Medical History Past Medical History: No Reported History Additional Past Medical History / Comment(s): uti/kidney infection years ago(was hospitalized)., recent hospitalization for Gall Bladder problems (Sep 2018), kidney stones History of Any Multi-Drug Resistant Organisms: None Reported Past Surgical History: Cholecystectomy Additional Past Surgical History / Comment(s): . Past Anesthesia/Blood Transfusion Reactions: No Reported Reaction Additional Past Anesthesia/Blood Transfusion Reaction / Comment(s): Has never had anesthesia Past Psychological History: No Psychological Hx Reported Smoking Status: Never smoker Past Alcohol Use History: None Reported Past Drug Use History: None Reported - Past Family History Father History Unknown: Yes Family Medical History: No Reported History Mother Family Medical History: No Reported History Additional Family Medical History / Comment(s): gallbladder issues General Exam Limitations: no limitations General appearance: alert, in no apparent distress Head exam: Present: atraumatic, normocephalic, normal inspection Eye exam: Present: normal appearance, PERRL, EOMI. Absent: scleral icterus, conjunctival injection, periorbital swelling ENT exam: Present: normal exam, mucous membranes moist Neck exam: Present: normal inspection. Absent: tenderness, meningismus, lymphadenopathy Respiratory exam: Present: normal lung sounds bilaterally. Absent: respiratory distress, wheezes, rales, rhonchi, stridor Cardiovascular Exam: Present: regular rate, normal rhythm, normal heart sounds. Absent: systolic murmur, diastolic murmur, rubs, gallop, clicks GI/Abdominal exam: Present: soft, normal bowel sounds. Absent: distended, tenderness, guarding, rebound, rigid Extremities exam: Present: normal inspection, full ROM, normal capillary refill. Absent: tenderness, pedal edema, joint swelling, calf tenderness Back exam: Present: normal inspection Neurological exam: Present: alert, oriented X3, CN II-XII intact Psychiatric exam: Present: normal affect, normal mood Skin exam: Present: warm, dry, intact, normal color. Absent: rash Course Vital Signs 12/09/23 12/09/23 12/09/23 19:41 21:00 22:40 Temperature 98.1 F Pulse Rate 77 66 105 H Respiratory 18 18 18 Rate Blood Pressure 133/62 126/68 128/63 O2 Sat by Pulse 100 100 100 Oximetry - Reevaluation(s) Reevaluation #1: Medical records reviewed Reevaluation #2: Patient symptoms unchanged Reevaluation #3: Patient informed of results and questions answered Reevaluation #4: Was pt. sent in by a medical professional or institution (, PA, [facility], urgent care, hospital, or [facility]...) When possible be specific @ -no Did you speak to anyone other than the patient for history (EMS, parent, family, police, friend...)? What history was obtained from this source @ -no Did you review nursing and triage notes (agree or disagree)? Why? @ -agree Are old charts reviewed (outside hosp., previous admission, EMS record, old EKG, old radiological studies, urgent care reports/EKG's, [facility] records)? Report findings @ -yes Differential Diagnosis (chest pain, altered mental status, abdominal pain women, abdominal pain men, vaginal bleeding, weakness, fever, dyspnea, syncope, headache, dizziness, GI bleed, back pain, seizure, CVA, palpatations, mental health, musculoskeletal)? @ -prior EKG interpreted by me (3pts min.). @ -yes X-rays interpreted by me (1pt min.). @ -no CT interpreted by me (1pt min.). @ -no U/S interpreted by me (1pt. min.). @ -no What testing was considered but not performed or refused? (CT, X-rays, U/S, labs)? Why? @ -none What meds were considered but not given or refused? Why? @ -none Did you discuss the management of the patient with other professionals (professionals i.e. , PA, [employer], lab, RT, psych nurse, mental health social worker, forestry support specialist, teacher, compliance officer, mattress spring encaser)? Give summary @ -no Was smoking cessation discussed for >3mins.? @ -no Was critical care preformed (if so, how long)? @ -no Were there social determinants of health that impacted care today? How? (Homelessness, low income, unemployed, alcoholism, drug addiction, transportation, low edu. Level, literacy, decrease access to med. care, detention, rehab)? @ -none Was there de-escalation of care discussed even if they declined (Discuss DNR or withdrawal of care, Hospice)? DNR status @ -no What co-morbidities impacted this encounter? (DM, HTN, Smoking, COPD, CAD, Cancer, CVA, ARF, Chemo, Hep., AIDS, mental health diagnosis, sleep apnea, morbid obesity)? @ -none Was patient admitted / discharged? Hospital course, mention meds given and route, prescriptions, significant lab abnormalities, going to OR and other pertinent info. @ - 28 female to ER with syncope recurrent syncope with history of pseudoseizures. Patient is in no acute distress here in the ER mother feels like anxiety treatment and discharge will be a good plan and that is the plan we will follow Discharge Undiagnosed new problem with uncertain prognosis? @ -no Drug Therapy requiring intensive monitoring for toxicity (Heparin, Nitro, Insulin, Cardizem)? @ -no Were any procedures done? @ -no Diagnosis/symptom? @ -Syncope versus seizure Acute, or Chronic, or Acute on Chronic? @ -Acute Uncomplicated (without systemic symptoms) or Complicated (systemic symptoms)? @ -Complicated Side effects of treatment? @ -no Exacerbation, Progression, or Severe Exacerbation? @ -exacerbation Poses a threat to life or bodily function? How? (Chest pain, [place], NE, pneumonia, PE, COPD, DKA, ARF, appy, cholecystitis, CVA, Diverticulitis, Homicidal, Suicidal, threat to staff... and all critical care pts) @ -yes with recurrent syncope Reevaluation #5: Differential Syncope: Valvular disease, hypertrophic cardiomyopathy, pulmonary embolism, tamponade, tachycardia, bradycardia, NE, hypovolemia, hemorrhage, dissection, anemia, intracranial hemorrhage, seizure, hypoglycemia, carbon monoxide poisoning, this is not meant to be an all-inclusive list. EKG Findings - EKG Comments: EKG Findings:: EKG is sinus 70 CT 157 QRS 88 QTc 403 - EKG Results: EKG: interpreted by [facility] Medical Decision Making - Medical Decision Making 28 female to ER with syncope recurrent syncope with history of pseudoseizures. Patient is in no acute distress here in the ER mother feels like anxiety treatment and discharge will be a good plan and that is the plan we will follow - Lab Data Result diagrams: 12/09/23 20:38 12/09/23 20:38 Lab Results 12/09/23 12/09/23 12/09/23 Range/Units 20:38 20:38 20:38 WBC 11.6 H (3.8-10.6) k/uL RBC 4.43 (3.80-5.40) m/uL Hgb 13.1 (11.4-16.0) gm/dL Hct 37.4 (34.0-46.0) % MCV 84.6 (80.0-100.0) fL MCH 29.6 (25.0-35.0) pg MCHC 34.9 (31.0-37.0) g/dL RDW 12.4 (11.5-15.5) % Plt Count 312 (150-450) k/uL MPV 7.6 Neutrophils % 80 % Lymphocytes % 13 % Monocytes % 4 % Eosinophils % 2 % Basophils % 0 % Neutrophils # 9.3 H (1.3-7.7) k/uL Lymphocytes # 1.5 (1.0-4.8) k/uL Monocytes # 0.5 (0-1.0) k/uL Eosinophils # 0.2 (0-0.7) k/uL Basophils # 0.0 (0-0.2) k/uL PT 10.8 (10.0-12.5) sec INR 1.0 (<1.2) APTT 25.0 (22.0-30.0) sec Sodium (137-145) mmol/L Potassium (3.5-5.1) mmol/L Chloride (98-107) mmol/L Carbon Dioxide (22-30) mmol/L Anion Gap mmol/L BUN (7-17) mg/dL Creatinine (0.52-1.04) mg/dL Est GFR (CKD-EPI)AfAm (>60 ml/min/1.73 sqM) Est GFR (CKD-EPI)NonAf (>60 ml/min/1.73 sqM) Glucose (74-99) mg/dL Plasma Lactic Acid [place]age (0.7-2.0) mmol/L Calcium (8.4-10.2) mg/dL Phosphorus (2.5-4.5) mg/dL Magnesium (1.6-2.3) mg/dL Total Bilirubin (0.2-1.3) mg/dL AST (14-36) U/L ALT (4-34) U/L Alkaline Phosphatase (38-126) U/L Troponin I (0.000-0.034) ng/mL NT-Pro-B Natriuret Pep pg/mL Total Protein (6.3-8.2) g/dL Albumin (3.5-5.0) g/dL TSH (0.465-4.680) mIU/L Urine Color Colorless Urine Appearance Clear (Clear) Urine pH 6.0 (5.0-8.0) Ur Specific [place] 1.014 (1.001-1.035) Urine Protein Negative (Negative) Urine Glucose (UA) Negative (Negative) Urine Ketones Negative (Negative) Urine Blood Negative (Negative) Urine Nitrite Negative (Negative) Urine Bilirubin Negative (Negative) Urine Urobilinogen <2.0 (<2.0) mg/dL Ur Leukocyte Esterase Negative (Negative) 12/09/23 12/09/23 12/09/23 Range/Units 20:38 20:38 20:38 WBC (3.8-10.6) k/uL RBC (3.80-5.40) m/uL Hgb (11.4-16.0) gm/dL Hct (34.0-46.0) % MCV (80.0-100.0) fL MCH (25.0-35.0) pg MCHC (31.0-37.0) g/dL RDW (11.5-15.5) % Plt Count (150-450) k/uL MPV Neutrophils % % Lymphocytes % % Monocytes % % Eosinophils % % Basophils % % Neutrophils # (1.3-7.7) k/uL Lymphocytes # (1.0-4.8) k/uL Monocytes # (0-1.0) k/uL Eosinophils # (0-0.7) k/uL Basophils # (0-0.2) k/uL PT (10.0-12.5) sec INR (<1.2) APTT (22.0-30.0) sec Sodium 137 (137-145) mmol/L Potassium 4.2 (3.5-5.1) mmol/L Chloride 109 H (98-107) mmol/L Carbon Dioxide 20 L (22-30) mmol/L Anion Gap 8 mmol/L BUN 18 H (7-17) mg/dL Creatinine 0.63 (0.52-1.04) mg/dL Est GFR (CKD-EPI)AfAm >90 (>60 ml/min/1.73 sqM) Est GFR (CKD-EPI)NonAf >90 (>60 ml/min/1.73 sqM) Glucose 103 H (74-99) mg/dL Plasma Lactic Acid [place] 0.8 (0.7-2.0) mmol/L Calcium 8.9 (8.4-10.2) mg/dL Phosphorus 3.6 (2.5-4.5) mg/dL Magnesium 2.1 (1.6-2.3) mg/dL Total Bilirubin 0.4 (0.2-1.3) mg/dL AST 60 H (14-36) U/L ALT 82 H (4-34) U/L Alkaline Phosphatase 94 (38-126) U/L Troponin I <0.012 (0.000-0.034) ng/mL NT-Pro-B Natriuret Pep <20 pg/mL Total Protein 6.8 (6.3-8.2) g/dL Albumin 4.0 (3.5-5.0) g/dL TSH 4.990 H (0.465-4.680) mIU/L Urine Color Urine Appearance (Clear) Urine pH (5.0-8.0) Ur Specific [place] (1.001-1.035) Urine Protein (Negative) Urine Glucose (UA) (Negative) Urine Ketones (Negative) Urine Blood (Negative) Urine Nitrite (Negative) Urine Bilirubin (Negative) Urine Urobilinogen (<2.0) mg/dL Ur Leukocyte Esterase (Negative) - EKG Data -: EKG Interpreted by Me Disposition Clinical Impression: Vasovagal syncope Disposition: HOME SELF-CARE Condition: Fair Instructions (If sedation given, give patient instructions): Syncope (ED) Is patient prescribed a controlled substance at d/c from ED?: No Referrals: Freddy Nielson MD [Primary Care Provider] - 1-2 days Time of Disposition: 21:40
[2023-12-09] MEDS: KETOROLAC 15 MG/ML 1 ML VIAL IVP STA (22:28)
[2023-12-09] MEDS: diphenhydrAMINE 50 MG/ML 1 ML VIAL IVP STA (22:31)
[2023-12-09] MEDS: PROCHLORPERAZINE INJ 10 MG/2 ML VIAL IVP STA (22:34)
[2023-12-09] MEDS: levETIRAcetam 500 MG TAB PO STA (22:36)
[2023-12-09 23:07] VITALS: BP 128/63; PULSE 105
== END 2023-12-09 22:45 | disposition home or self-care (01) ==
LOC: EC 19:38
DX: R55 Syncope and collapse (principal); Z90.49 Acquired absence of other specified parts of digestive tract
CPT/HCPCS: 36415; 93005; 83880; 80053; 83605; 83735; 84100; 84443; 84484; 85025; 85610; 85730; 81003; 99285; 96374; 96375 ×2; 96361; J1200; J0780; J1885

== ENCOUNTER 2024-03-20 21:48 | Emergency (ER) | payer OTHER ==
--- NOTE | 2024-03-20 21:59 | ED ---
General Adult HPI - General Chief complaint: Seizure Stated complaint: Seizures Time Seen by Provider: 03/20/24 21:57 Source: EMS Mode of arrival: EMS Limitations: no limitations - History of Present Illness Initial comments: Pamela is a 28-year-old female with a seizure disorder who reports she has not taken her medications for the past 2 days because they have been camping. Patient states that tonight she had a seizure. Mom at bedside states that the seizures seem to last longer than usual so they called EMS. EMS transported patient to the hospital and she reports she is back to her baseline and comfortable going home. - Related Data Home Medications Medication Instructions Recorded Confirmed Vit No.180/Iron/Folic 1 tab PO DAILY 08/13/19 07/08/21 [ Plus Tablet] Previous Rx's Medication Instructions Recorded Cephalexin [Keflex] 500 mg PO Q12HR 4 Days #8 cap 07/08/21 Pnv No.95/Ferrous Fum/Folic AC 1 each PO DAILY #30 tablet 07/08/21 [ Multivitamin Tablet] dexAMETHasone [Decadron] 6 mg PO DAILY #7 tablet 11/17/21 Allergies Allergy/AdvReac Type Severity Reaction Status Date / Time No Known Allergies Allergy Verified 12/09/23 19:49 Review of Systems ROS Statement: Those systems with pertinent positive or pertinent negative responses have been documented in the HPI. ROS Other: All systems not noted in ROS Statement are negative. Past Medical History Past Medical History: No Reported History Additional Past Medical History / Comment(s): uti/kidney infection years ago(was hospitalized)., recent hospitalization for Gall Bladder problems (Sep 2018), kidney stones History of Any Multi-Drug Resistant Organisms: None Reported Past Surgical History: Cholecystectomy Additional Past Surgical History / Comment(s): . Past Anesthesia/Blood Transfusion Reactions: No Reported Reaction Additional Past Anesthesia/Blood Transfusion Reaction / Comment(s): Has never had anesthesia Past Psychological History: No Psychological Hx Reported Smoking Status: Never smoker Past Alcohol Use History: None Reported Past Drug Use History: None Reported - Past Family History Father History Unknown: Yes Family Medical History: No Reported History Mother Family Medical History: No Reported History Additional Family Medical History / Comment(s): gallbladder issues General Exam - General Exam Comments Initial Comments: Physical Exam GENERAL: Patient is well-developed and well-nourished. Patient is nontoxic and well-hydrated and is in no distress. HENT: Normocephalic, Atraumatic No tongue biting EYES: PERRL, EOMI PULMONARY: Unlabored respirations. CARDIOVASCULAR: RRR Warm and well perfused extremities ABDOMEN: Non-distended SKIN: No rashes or bruising : Deferred NEUROLOGIC: Alert and oriented Normal speech Normal gait MUSCULOSKELETAL: Moving all extremities with no apparent injury PSYCHIATRIC: No SI/HI Limitations: no limitations Course Vital Signs 03/20/24 03/20/24 21:52 23:43 Temperature 98.3 F Pulse Rate 91 68 Respiratory 18 18 Rate Blood Pressure 89/56 90/65 O2 Sat by Pulse 94 L 100 Oximetry EKG Findings - EKG Comments: EKG Findings:: EKG obtained as part of the seizure workup EKG interpreted by me EKG obtained at 2218 rate is 71 rhythm is sinus normal axis normal intervals [place] 157 QRS 89 QTc [address] elevations or depressions no evidence of ischemia infarction or arrhythmia. Medical Decision Making - Medical Decision Making Was pt. sent in by a medical professional or institution (, PA, BAKER PASTRY, urgent care, hospital, or retirement...) When possible be specific @ -No Did you speak to anyone other than the patient for history (EMS, parent, family, police, friend...)? What history was obtained from this source @ -No Did you review nursing and triage notes (agree or disagree)? Why? @ -I reviewed and agree with nursing and triage notes Were old charts reviewed (outside hosp., previous admission, EMS record, old EKG, old radiological studies, urgent care reports/EKG's, retirement records)? Report findings @ -No old charts were reviewed Differential Diagnosis (chest pain, altered mental status, abdominal pain women, abdominal pain men, vaginal bleeding, weakness, fever, dyspnea, syncope, headache, dizziness, GI bleed, back pain, seizure, CVA, palpatations, mental health)? @ -Differential Seizure: Recurrent seizure disorder, febrile seizure, alcohol withdrawal, stimulants, meningitis, encephalitis, intercranial hemorrhage, intracranial tumor, stroke, eclampsia, thyrotoxicosis, hypocalcemia, hyponatremia, hypernatremia, hypomagnesemia, psychogenic, this is not meant to be an all-inclusive list. EKG interpreted by me (3pts min.). @ -As above X-rays interpreted by me (1pt min.). @ -None done CT interpreted by me (1pt min.). @ -None done U/S interpreted by me (1pt. min.). @ -None done What testing was considered but not performed or refused? (CT, X-rays, U/S, labs)? Why? @ -None What meds were considered but not given or refused? Why? @ -None Did you discuss the management of the patient with other professionals (professionals i.e. DrBladimir, PA, BAKER PASTRY, lab, RT, psych nurse, geriatric social work professor, communications technician, teacher, parking regulation enforcement officer, case briefer)? Give summary @ -No Was smoking cessation discussed for >3mins.? @ -No Was critical care preformed (if so, how long)? @ -No Were there social determinants of health that impacted care today? How? (Homelessness, low income, unemployed, alcoholism, drug addiction, transportation, low edu. Level, literacy, decrease access to med. care, retirement, rehab)? @ -No Was there de-escalation of care discussed even if they declined (Discuss DNR or withdrawal of care, Hospice)? DNR status @ -No What co-morbidities impacted this encounter? (DM, HTN, Smoking, COPD, CAD, Cancer, CVA, ARF, Chemo, Hep., AIDS, mental health diagnosis, sleep apnea, morbid obesity)? @ -None Was patient admitted / discharged? Hospital course, mention meds given and route, prescriptions, significant lab abnormalities, going to OR and other pertinent info. @ -Discharged The patient was seen and evaluated history was obtained from the patient. History and physical exam are unremarkable. This is an epileptic patient who missed 2 days of medications. At this time patient's stable for discharge home and continued outpatient follow-up with neurology. Patient reports she has her meds at home she will take them upon leaving. Undiagnosed new problem with uncertain prognosis? @ -No Drug Therapy requiring intensive monitoring for toxicity (Heparin, Nitro, Insulin, Cardizem)? @ -No Were any procedures done? @ -No Diagnosis/symptom? @ -Seizure Acute, or Chronic, or Acute on Chronic? @ -Default Uncomplicated (without systemic symptoms) or Complicated (systemic symptoms)? @ -Default Side effects of treatment? @ -No Exacerbation, Progression, or Severe Exacerbation? @ -No Poses a threat to life or bodily function? How? (Chest pain, [place], [place], pneumonia, PE, COPD, DKA, ARF, appy, cholecystitis, CVA, Diverticulitis, Homicidal, Suicidal, threat to staff... and all critical care pts) @ -No - Lab Data Result diagrams: 03/20/24 22:08 03/20/24 22:08 Lab Results 03/20/24 03/20/24 Range/Units 22:08 22:08 WBC 5.4 (3.8-10.6) k/uL RBC 4.40 (3.80-5.40) m/uL Hgb 12.8 (11.4-16.0) gm/dL Hct 37.5 (34.0-46.0) % MCV 85.3 (80.0-100.0) fL MCH 29.1 (25.0-35.0) pg MCHC 34.2 (31.0-37.0) g/dL RDW 13.2 (11.5-15.5) % Plt Count 312 (150-450) k/uL MPV 7.6 Neutrophils % 59 % Lymphocytes % 31 % Monocytes % 5 % Eosinophils % 3 % Basophils % 1 % Neutrophils # 3.2 (1.3-7.7) k/uL Lymphocytes # 1.7 (1.0-4.8) k/uL Monocytes # 0.3 (0-1.0) k/uL Eosinophils # 0.1 (0-0.7) k/uL Basophils # 0.0 (0-0.2) k/uL Sodium 140 (137-145) mmol/L Potassium 4.2 (3.5-5.1) mmol/L Chloride 107 (98-107) mmol/L Carbon Dioxide 23 (22-30) mmol/L Anion Gap 10 mmol/L BUN 12 (7-17) mg/dL Creatinine 0.72 (0.52-1.04) mg/dL Est GFR (CKD-EPI)AfAm >90 (>60 ml/min/1.73 sqM) Est GFR (CKD-EPI)NonAf >90 (>60 ml/min/1.73 sqM) Glucose 94 (74-99) mg/dL Calcium 8.7 (8.4-10.2) mg/dL Magnesium 1.8 (1.6-2.3) mg/dL Total Bilirubin 0.5 (0.2-1.3) mg/dL AST 53 H (14-36) U/L ALT 42 H (4-34) U/L Alkaline Phosphatase 79 (38-126) U/L Total Protein 6.9 (6.3-8.2) g/dL Albumin 4.3 (3.5-5.0) g/dL Disposition Clinical Impression: Seizure Disposition: HOME SELF-CARE Condition: Stable Instructions (If sedation given, give patient instructions): Recurrent Seizures in Adults (ED) Additional Instructions: With your neurologist as planned this week Is patient prescribed a controlled substance at d/c from ED?: No Referrals: None,Stated [REFERRING] - 1-2 days
[2024-03-20 22:14] LABS: Basophils % (A) 1 %; Eosinophils # (A) 0.1 k/uL (0-0.7); Eosinophils % (A) 3 %; HCT 37.5 % (34.0-46.0); HGB 12.8 gm/dL (11.4-16.0); Lymphocytes # (A) 1.7 k/uL (1.0-4.8); Lymphocytes % (A) 31 %; MCH 29.1 pg (25.0-35.0); MCHC 34.2 g/dL (31.0-37.0); MCV 85.3 fL (80.0-100.0); Mean Platelet Volume 7.6; Monocytes # (A) 0.3 k/uL (0-1.0); Monocytes % (A) 5 %; Neutrophils # (A) 3.2 k/uL (1.3-7.7); Neutrophils % (A) 59 %; Platelet Count 312 k/uL (150-450); RDW 13.2 % (11.5-15.5); WBC 5.4 k/uL (3.8-10.6)
[2024-03-20 22:19] VITALS: RESP 18
[2024-03-20 22:23] LABS: ALT 42 U/L (4-34); AST 53 U/L (14-36); African American GFR (CKD) >90 (>60 ml/min/1.73 sqM); Albumin 4.3 g/dL (3.5-5.0); Alkaline Phosphatase 79 U/L (38-126); Anion Gap 10 mmol/L; Blood Urea Nitrogen 12 mg/dL (7-17); Calcium 8.7 mg/dL (8.4-10.2); Carbon Dioxide 23 mmol/L (22-30); Chloride 107 mmol/L (98-107); Glucose 94 mg/dL (74-99); Magnesium 1.8 mg/dL (1.6-2.3); Non-African American GFR(CKD) >90 (>60 ml/min/1.73 sqM); Potassium 4.2 mmol/L (3.5-5.1); Sodium 140 mmol/L (137-145); Total Bilirubin 0.5 mg/dL (0.2-1.3); Total Protein 6.9 g/dL (6.3-8.2)
[2024-03-20] MEDS: SODIUM CHLORIDE 0.9% 1,000 ML IV STA (22:58)
[2024-03-20 23:57] VITALS: BP 90/65; PULSE 68; TEMP 98.3
== END 2024-03-20 23:43 | disposition home or self-care (01) ==
LOC: EC 21:48
DX: G40.909 Epilepsy, unspecified, not intractable, without status epilepticus (principal)
CPT/HCPCS: 36415; 80053; 83735; 85025; 93005; 99284

== ENCOUNTER 2024-04-22 08:34 | Day surgery (SDC) | payer OTHER ==
[~2024-04-22 08:34] MED LIST changes: -ACETAMINOPHEN IV (For NPO) 1,000 MG in EMPTY BAG 1 BAG IVPB ONE; -HEPARIN SODIUM,PORCINE 5,000 UNIT/ML 1 ML VIAL SQ ONE; +SODIUM CHLORIDE 0.9% 1,000 ML IV SCH
[2024-04-22 09:16] VITALS: RESP 16; TEMP 98.2
[2024-04-22] MEDS: SODIUM CHLORIDE 0.9% 500 ML 500 ML IV ONE (11:22)
[2024-04-22 11:39] VITALS: BP 111/62
[2024-04-22 12:01] VITALS: PULSE 63
--- NOTE | 2024-04-22 12:35 | P.EPPROC ---
- EP Procedure Note Electrophysiology Procedure Note: Diagnosis Recurrent syncope 12 EKG shows sinus rhythm heart rate 52 beats a minute normal CA narrow QRS normal ST segments normal QT interval Tilt table test per protocol Baseline blood pressure 105/66 mmHg baseline heart rate 50 beats a minute Patient was tilted upright at an angle of 70 degrees per protocol Almost immediately she experienced sinus tachycardia to 110 beats a minute with drop in blood pressure to 80 mmHg systolic She passed out very briefly and she was laid supine Impression Normal twelve-lead EKG Orthostatic hypotension with brief loss of consciousness
== END 2024-04-22 12:01 | disposition home or self-care (01) ==
LOC: CATHEP 08:34
PROVIDERS: ATTEND Internal Medicine Clinical Cardiac Electrophysiology
DX: I95.1 Orthostatic hypotension (principal); R56.9 Unspecified convulsions; Z79.899 Other long term (current) drug therapy
CPT/HCPCS: 93660

== ENCOUNTER 2024-05-28 11:17 | Observation (INO) | payer OTHER ==
[2024-05-28 12:05] LABS: Basophils % (A) 0 %; Eosinophils # (A) 0.1 k/uL (0-0.7); Eosinophils % (A) 3 %; HCT 37.7 % (34.0-46.0); HGB 12.9 gm/dL (11.4-16.0); Lymphocytes # (A) 1.2 k/uL (1.0-4.8); Lymphocytes % (A) 25 %; MCH 29.5 pg (25.0-35.0); MCHC 34.3 g/dL (31.0-37.0); MCV 86.1 fL (80.0-100.0); Mean Platelet Volume 7.4; Monocytes # (A) 0.4 k/uL (0-1.0); Monocytes % (A) 8 %; Neutrophils % (A) 62 %; Platelet Count 265 k/uL (150-450); RBC 4.38 m/uL (3.80-5.40); RDW 12.4 % (11.5-15.5); WBC 4.9 k/uL (3.8-10.6)
[2024-05-28] MEDS: LORazepam 2 MG/ML INJ IV STA (12:11)
[2024-05-28 12:24] LABS: ALT 20 U/L (4-34); AST 28 U/L (14-36); African American GFR (CKD) >90 (>60 ml/min/1.73 sqM); Albumin 4.1 g/dL (3.5-5.0); Alkaline Phosphatase 70 U/L (38-126); Anion Gap 5 mmol/L; Blood Urea Nitrogen 14 mg/dL (7-17); Calcium 9.1 mg/dL (8.4-10.2); Carbon Dioxide 23 mmol/L (22-30); Chloride 109 mmol/L (98-107); Glucose 82 mg/dL (74-99); Non-African American GFR(CKD) >90 (>60 ml/min/1.73 sqM); Potassium 4.1 mmol/L (3.5-5.1); Sodium 137 mmol/L (137-145); Total Bilirubin 0.6 mg/dL (0.2-1.3); Total Protein 6.8 g/dL (6.3-8.2)
--- NOTE | 2024-05-28 12:51 | ED ---
General Adult HPI - General Chief complaint: Seizure Stated complaint: Seizures Time Seen by Provider: 05/28/24 11:20 Source: patient, EMS, RN notes reviewed, old records reviewed Mode of arrival: EMS Limitations: no limitations - History of Present Illness Initial comments: This is a 28-year-old female with past medical history significant for seizure. Patient was at home and had 3 seizures while EMS was there. EMS eventually gave Versed 5 mg IM and she stopped seizing. Patient has seized 2 more times in the emergency department and was given 2 of Ativan IV. I went in to see the patient while she was still shaking and she was looking around the room and responding some voices it did not appear to be a classic seizure. After a few minutes and went back to the room she was completely alert and oriented x 4 and was not postictal at all. Patient states she is taking her Lamictal as prescribed - Related Data Home Medications Medication Instructions Recorded Confirmed lamoTRIgine [LaMICtal] 25 mg PO HS 04/20/24 05/28/24 Allergies Allergy/AdvReac Type Severity Reaction Status Date / Time No Known Allergies Allergy Verified 05/28/24 12:05 Review of Systems ROS Statement: Those systems with pertinent positive or pertinent negative responses have been documented in the HPI. ROS Other: All systems not noted in ROS Statement are negative. Past Medical History Past Medical History: No Reported History Additional Past Medical History / Comment(s): uti/kidney infection years ago(was hospitalized)., recent hospitalization for Gall Bladder problems (Sep 2018), kidney stones History of Any Multi-Drug Resistant Organisms: None Reported Past Surgical History: Cholecystectomy Additional Past Surgical History / Comment(s): . Past Anesthesia/Blood Transfusion Reactions: No Reported Reaction Additional Past Anesthesia/Blood Transfusion Reaction / Comment(s): Has never had anesthesia Past Psychological History: No Psychological Hx Reported Smoking Status: Vaper Past Alcohol Use History: None Reported Past Drug Use History: None Reported - Past Family History Father History Unknown: Yes Family Medical History: No Reported History Mother Family Medical History: No Reported History Additional Family Medical History / Comment(s): gallbladder issues General Exam - General Exam Comments Initial Comments: GENERAL: Patient is well-developed and well-nourished. Patient is nontoxic and well- hydrated and is in no acute distress. ENT: Neck is soft and supple. No significant lymphadenopathy is noted. Oropharynx is clear. Moist mucous membranes. Neck has full range of motion without eliciting any pain. EYES: The sclera were anicteric and conjunctiva were pink and moist. Extraocular movements were intact and pupils were equal round and reactive to light. Eyelids were unremarkable. PULMONARY: Unlabored respirations. Good breath sounds bilaterally. No audible rales rhonchi or wheezing was noted. CARDIOVASCULAR: There is a regular rate and rhythm without any murmurs gallops or rubs. ABDOMEN: Soft and nontender with normal bowel sounds. SKIN: Skin is clear with no lesions or rashes and otherwise unremarkable. NEUROLOGIC: Patient is alert and oriented x3. Cranial nerves II through XII are grossly intact. Motor and sensory are also intact. Normal speech, volume and content. Symmetrical smile. MUSCULOSKELETAL: Normal extremities with adequate strength and full range of motion. LYMPHATICS: No significant lymphadenopathy is noted PSYCHIATRIC: Normal psychiatric evaluation. Limitations: no limitations Course Vital Signs 05/28/24 05/28/24 05/28/24 11:20 12:46 13:05 Temperature 98.6 F Pulse Rate 59 L 54 L 54 L Respiratory 18 16 16 Rate Blood Pressure 104/56 104/56 96/58 O2 Sat by Pulse 100 100 100 Oximetry Medical Decision Making - Medical Decision Making EKG is interpreted by myself EKG shows a sinus bradycardia 52 bpm parables 138 QRS is 94 QT interval is 424 QTc is 405. Patient's EKG shows no ST segment elevation or depression Was pt. sent in by a medical professional or institution (, PA, WEBSITE OPTIMIZATION STRATEGIST, urgent care, hospital, or halfway...) When possible be specific @ -No Did you speak to anyone other than the patient for history (EMS, parent, family, police, friend...)? What history was obtained from this source @ -EMS gives part of the history because the patient was seizing when they first arrived. Patient's family also gives some of the history because patient does not give me any history because of her sutures Did you review nursing and triage notes (agree or disagree)? Why? @ -I reviewed and agree with nursing and triage notes Were old charts reviewed (outside hosp., previous admission, EMS record, old EKG, old radiological studies, urgent care reports/EKG's, halfway records)? Report findings @ -No old charts were reviewed Differential Diagnosis? @ -Differential Seizure: Recurrent seizure disorder, febrile seizure, alcohol withdrawal, stimulants, meningitis, encephalitis, intercranial hemorrhage, intracranial tumor, stroke, eclampsia, thyrotoxicosis, hypocalcemia, hyponatremia, hypernatremia, hypomagnesemia, psychogenic, this is not meant to be an all-inclusive list. EKG interpreted by me (3pts min.). @ -As above X-rays interpreted by me (1pt min.). @ -None done CT interpreted by me (1pt min.). @ -None done U/S interpreted by me (1pt. min.). @ -None done What testing was considered but not performed or refused? (CT, X-rays, U/S, labs)? Why? @ -None What meds were considered but not given or refused? Why? @ -None Did you discuss the management of the patient with other professionals (professionals i.e. , PA, WEBSITE OPTIMIZATION STRATEGIST, lab, RT, psych nurse, social and political studies professor, air route controller, teacher, special police officer, case repairer)? Give summary @ -I spoke with [facility] hospitalist agreed to admit the patient. Spoke with Dr. Ceron the neurologist and he agreed to see the patient. Was smoking cessation discussed for >3mins.? @ -No Was critical care preformed (if so, how long)? @ -No Were there social determinants of health that impacted care today? How? (Homelessness, low income, unemployed, alcoholism, drug addiction, transportation, low edu. Level, literacy, decrease access to med. care, longterm, rehab)? @ -No Was there de-escalation of care discussed even if they declined (Discuss DNR or withdrawal of care, Hospice)? DNR status @ -No What co-morbidities impacted this encounter? (DM, HTN, Smoking, COPD, CAD, Cancer, CVA, ARF, Chemo, Hep., AIDS, mental health diagnosis, sleep apnea, morbid obesity)? @ -None Was patient admitted / discharged? Hospital course, mention meds given and route, prescriptions, significant lab abnormalities, going to OR and other pertinent info. @ -Patient had 1 seizure in the emergency department and it appeared that it was a pseudoseizure she was given 2 of Ativan and I went back and reevaluate her shortly thereafter and she was not postictal at all Undiagnosed new problem with uncertain prognosis? @ -No Drug Therapy requiring intensive monitoring for toxicity (Heparin, Nitro, Insulin, Cardizem)? @ -No Were any procedures done? @ -No Diagnosis/symptom? @ -Seizure Acute, or Chronic, or Acute on Chronic? @ -Acute Uncomplicated (without systemic symptoms) or Complicated (systemic symptoms)? @ -Complicated Side effects of treatment? @ -No Exacerbation, Progression, or Severe Exacerbation? @ -No Poses a threat to life or bodily function? How? (Chest pain, [place], [place], pneumonia, PE, COPD, DKA, ARF, appy, cholecystitis, CVA, Diverticulitis, Homicidal, Suicidal, threat to staff... and all critical care pts) @ -No - Lab Data Result diagrams: 05/28/24 11:57 05/28/24 11:57 Lab Results 05/28/24 05/28/24 05/28/24 Range/Units 11:57 11:57 12:49 WBC 4.9 (3.8-10.6) k/uL RBC 4.38 (3.80-5.40) m/uL Hgb 12.9 (11.4-16.0) gm/dL Hct 37.7 (34.0-46.0) % MCV 86.1 (80.0-100.0) fL MCH 29.5 (25.0-35.0) pg MCHC 34.3 (31.0-37.0) g/dL RDW 12.4 (11.5-15.5) % Plt Count 265 (150-450) k/uL MPV 7.4 Neutrophils % 62 % Lymphocytes % 25 % Monocytes % 8 % Eosinophils % 3 % Basophils % 0 % Neutrophils # 3.0 (1.3-7.7) k/uL Lymphocytes # 1.2 (1.0-4.8) k/uL Monocytes # 0.4 (0-1.0) k/uL Eosinophils # 0.1 (0-0.7) k/uL Basophils # 0.0 (0-0.2) k/uL Sodium 137 (137-145) mmol/L Potassium 4.1 (3.5-5.1) mmol/L Chloride 109 H (98-107) mmol/L Carbon Dioxide 23 (22-30) mmol/L Anion Gap 5 mmol/L BUN 14 (7-17) mg/dL Creatinine 0.72 (0.52-1.04) mg/dL Est GFR (CKD-EPI)AfAm >90 (>60 ml/min/1.73 sqM) Est GFR (CKD-EPI)NonAf >90 (>60 ml/min/1.73 sqM) Glucose 82 (74-99) mg/dL Plasma Lactic Acid Gage 0.8 (0.7-2.0) mmol/L Calcium 9.1 (8.4-10.2) mg/dL Total Bilirubin 0.6 (0.2-1.3) mg/dL AST 28 (14-36) U/L ALT 20 (4-34) U/L Alkaline Phosphatase 70 (38-126) U/L Total Protein 6.8 (6.3-8.2) g/dL Albumin 4.1 (3.5-5.0) g/dL Serum Alcohol mg/dL 05/28/24 Range/Units 12:49 WBC (3.8-10.6) k/uL RBC (3.80-5.40) m/uL Hgb (11.4-16.0) gm/dL Hct (34.0-46.0) % MCV (80.0-100.0) fL MCH (25.0-35.0) pg MCHC (31.0-37.0) g/dL RDW (11.5-15.5) % Plt Count (150-450) k/uL MPV Neutrophils % % Lymphocytes % % Monocytes % % Eosinophils % % Basophils % % Neutrophils # (1.3-7.7) k/uL Lymphocytes # (1.0-4.8) k/uL Monocytes # (0-1.0) k/uL Eosinophils # (0-0.7) k/uL Basophils # (0-0.2) k/uL Sodium (137-145) mmol/L Potassium (3.5-5.1) mmol/L Chloride (98-107) mmol/L Carbon Dioxide (22-30) mmol/L Anion Gap mmol/L BUN (7-17) mg/dL Creatinine (0.52-1.04) mg/dL Est GFR (CKD-EPI)AfAm (>60 ml/min/1.73 sqM) Est GFR (CKD-EPI)NonAf (>60 ml/min/1.73 sqM) Glucose (74-99) mg/dL Plasma Lactic Acid Gage (0.7-2.0) mmol/L Calcium (8.4-10.2) mg/dL Total Bilirubin (0.2-1.3) mg/dL AST (14-36) U/L ALT (4-34) U/L Alkaline Phosphatase (38-126) U/L Total Protein (6.3-8.2) g/dL Albumin (3.5-5.0) g/dL Serum Alcohol <10 mg/dL Disposition Clinical Impression: Generalized seizure Disposition: ADMITTED IP TO THIS [facility] Instructions (If sedation given, give patient instructions): Seizure/Epilepsy Discharge Instructions & Follow-Up Referrals: Freddy Nielson MD [Primary Care Provider] - 1-2 days Time of Disposition: 14:08
[2024-05-28 13:18] LABS: Alcohol <10 mg/dL
--- NOTE | 2024-05-28 13:30 | CT ---
EXAMINATION TYPE: CT brain wo con DATE OF EXAM: 05/28/2024 COMPARISON: None HISTORY: 28-year-old female seizure. TECHNIQUE: Examination was done in axial plane without intravenous contrast. Coronal and sagittal r econstructions performed. CT DLP: 1086.1 mGycm Automated exposure control for dose reduction was used. FINDINGS: There is no evidence of acute intracranial hemorrhage, acute ischemic changes, mass, mass-effect, or extra-axial fluid collection. There is no effacement of cerebral sulci or basal subarachnoid cister ns. There is no hydrocephalus. There is no midline shift. Woodard-white matter distinction is preserv ed. 3 mm of right-sided benign cerebellar tonsillar ectopia. Paranasal sinuses and mastoid air cells well pneumatized. Orbits and globes are intact. IMPRESSION: No acute intracranial abnormality seen. If symptoms persist, consider MRI.
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
[2024-05-28 20:03] LABS: Amphetamine Screen,Urine Not Detected (NotDetected); Barbiturate Screen,Urine Not Detected (NotDetected); Benzodiazepines Screen,Urine Detected (NotDetected); Cocaine Screen,Urine Not Detected (NotDetected); Methadone Screen, Urine Not Detected (NotDetected); Opiate Screen,Urine Not Detected (NotDetected); Oxycodone Screen, Urine Not Detected (NotDetected); Phencyclidine Screen,Urine Not Detected (NotDetected); Tricyclic Antidepressant,Urine Not Detected (NotDetected); Urn Cannabinoid Scrn Not Detected (NotDetected)
[2024-05-28] MEDS: lamoTRIgine 25 MG TAB PO SCH (20:55)
--- NOTE | 2024-05-29 00:01 | P.HPIM ---
History of Present Illness H&P Date: 05/28/24 Chief Complaint: Seizures Patient is a 28-year-old female with known history of seizure disorder on antiepileptic medications, nephrolithiasis and use of vaping presents to ER due to seizure activity. Patient states that she woke up this morning with migraine headache and was feeling sick and evaluation. Patient states that she fell off of the couch and started having seizures lasting for about 10 minutes." Back for 4 times. Patient states that he has been having seizure-like like in the last 1 month. Patient otherwise denies any loss of bowel or bladder control. Denies any tongue bite or protein. Patient has been taking Lamictal 25 mg at bedtime at home. Patient states that she was in her usual relationship with her boyfriend. Patient had similar workup done at [facility] in [place] as per her mother. She is in the process of making appointment with outpatient neurologist. Patient was given a dose of Ativan 2 mg IV x 1 in the ER. On admission CT head showed no acute intracranial abnormality. EKG showed sinus bradycardia with heart rate 52 Laboratory data showed WBC 4.9 hemoglobin 12.9 platelets 265 sodium 137 potassium 4.1 chloride 109 bicarb is 23 BUN 14 and creatinine 0.72 and blood sugar 82 liver Alvin not elevated. Albumin 4.1 UDS positive for benzodiazepines. Review of Systems Constitutional: Patient denies any fever or chills . No generalized weakness or weight loss. Abdomen: Patient denied nausea vomiting and diarrhea and abdominal pain. Cardiovascular: Patient denies any chest pain or short of breath no palpitations. Respiratory: patient denied any cough or sputum production. No shortness of breath Neurologic: Patient denied any numbness or tingling. no headache. Musculoskeletal: Patient denies any complaints of joint swelling or deformity. Skin: Negative Psychiatric: Negative Endocrine: No heat or cold intolerance. No recent weight gain. Genitourinary: No dysuria or hematuria. All other 14 point ROS negative except the above Past Medical History Past Medical History: No Reported History Additional Past Medical History / Comment(s): uti/kidney infection years ago(was hospitalized)., recent hospitalization for Gall Bladder problems (Sep 2018), kidney stones History of Any Multi-Drug Resistant Organisms: None Reported Past Surgical History: Cholecystectomy Additional Past Surgical History / Comment(s): . Past Anesthesia/Blood Transfusion Reactions: No Reported Reaction Additional Past Anesthesia/Blood Transfusion Reaction / Comment(s): Has never had anesthesia Past Psychological History: No Psychological Hx Reported Smoking Status: Vaper Past Alcohol Use History: None Reported Past Drug Use History: None Reported - Past Family History Father History Unknown: Yes Family Medical History: No Reported History Mother Family Medical History: No Reported History Additional Family Medical History / Comment(s): gallbladder issues Medications and Allergies Home Medications Medication Instructions Recorded Confirmed Type lamoTRIgine [LaMICtal] 25 mg PO HS 04/20/24 05/28/24 History Allergies Allergy/AdvReac Type Severity Reaction Status Date / Time No Known Allergies Allergy Verified 05/28/24 12:05 Physical Exam Vitals: Vital Signs Temp Pulse Resp BP Pulse Ox 05/28/24 19:00 92 20 103/57 99 05/28/24 18:00 73 15 106/62 98 05/28/24 17:00 57 L 16 98/52 99 05/28/24 16:00 99.0 F 65 17 102/56 97 05/28/24 15:00 74 15 98/54 96 05/28/24 13:05 54 L 16 96/58 100 05/28/24 12:46 54 L 16 104/56 100 05/28/24 11:20 98.6 F 59 L 18 104/56 100 Intake and Output 05/28/24 05/28/24 05/28/24 06:59 14:59 22:59 Other: Weight 77.111 kg PHYSICAL EXAMINATION: Patient is lying in the bed comfortably, no acute distress, awake alert and oriented. Drowsy and lethargic.. HEENT: Normocephalic. Neck is supple. Pupils reactive. Nostrils clear. Oral cavity is moist. Neck reveals no JVD, carotid bruits, or thyromegaly. CHEST EXAMINATION: Trachea is central. Symmetrical expansion. Lung barnard clear to auscultation and percussion. CARDIAC: Normal S1, S2 with no gallops. No murmurs ABDOMEN: Soft. Bowel sounds normal. No organomegaly. No abdominal bruits. Extremities: reveal no edema. No clubbing or cyanosis Neurologically awake, alert, oriented x3 with well-coordinated movements. No focal deficits noted Skin: No rash or skin lesions. Psychiatric: Coperative. Nonsuicidal Musculoskeletal: No joint swelling or deformity. Normal range of motion. Results CBC & Chem 7: 05/28/24 11:57 05/28/24 11:57 Labs: Abnormal Lab Results - Last 24 Hours (Table) 05/28/24 05/28/24 Range/Units 11:57 19:26 Chloride 109 H (98-107) mmol/L U Benzodiazepines Scrn Detected H (NotDetected) Thrombosis Risk Factor Assmnt - DVT/VTE Prophylaxis DVT/VTE Prophylaxis: Pharmacologic Prophylaxis ordered Assessment and Plan Assessment: Acute breakthrough seizures. Patient states that she has [id number] seizure seizure-like activity x 4 Seizure disorder on antiepileptic medications. Patient was told she has nonepileptic seizures and her previous workup was negative. Vaping DVT prophylaxis heparin subcu Plan: Patient will be continued on CIWA precautions and fall precautions. Started back on Lamictal 25 mg and dose increased to twice daily. Neurology is on board. Continue with seizure precautions and fall precautions. EEG was ordered. Patient was counseled extensively for stopping vaping. Continue to follow closely. Time with Patient: Greater than 30
[2024-05-29] MEDS: HEPARIN SODIUM,PORCINE 5,000 UNIT/ML 1 ML VIAL SQ SCH (00:38)
--- NOTE | 2024-05-29 02:00 | EEG ---
ELECTROENCEPHALOGRAM REPORT CLINICAL HISTORY: This is a 28-year-old woman with history of seizure, who presents because of multiple seizure-like activities. The video EEG is obtained to evaluate for seizure epileptiform activity. RELEVANT MEDICATION: Lamictal. EEG TYPE: This is a routine 21-channel EEG with video using the 10/20 electrode placement system. DESCRIPTION: Wakefulness and drowsiness are obtained. During awake state, the posterior- dominant rhythm consists of [id number] voltage of 8.5 to 9 hertz activity that is well modulated, well sustained. There is no physiological stage 2 sleep architecture. There is no focal slowing. Interictal and ictal is none. The patient clinically shaking of head, upper extremity and not responsive per proced tech, one of episodes at 6 minutes 35 seconds of the recording and another one was 11 minutes and 31 seconds of recording. Electrographically, the background is normal. ACTIVATION PROCEDURE: Photic stimulation did not evoke a posterior driving response. There is no abnormality during the photic stimulation. Hyperventilation is not performed. CLINICAL INTERPRETATION: This is a normal routine EEG. The background is normal. There is no focal slowing, epileptiform discharges, or seizure on the EEG. The patient's episodes captured during this recording are nonepileptic in nature (psychogenic nonepileptic seizure aka PNES). Clinical correlation is recommended. RAMIRO / GENON: [id number] / PEREZ
[2024-05-29 12:44] LABS: African American GFR (CKD) >90 (>60 ml/min/1.73 sqM); Anion Gap 6 mmol/L; Blood Urea Nitrogen 11 mg/dL (7-17); Calcium 9.1 mg/dL (8.4-10.2); Carbon Dioxide 24 mmol/L (22-30); Chloride 109 mmol/L (98-107); Glucose 69 mg/dL (74-99); Non-African American GFR(CKD) >90 (>60 ml/min/1.73 sqM); Potassium 3.9 mmol/L (3.5-5.1); Sodium 139 mmol/L (137-145)
[2024-05-29 14:37] VITALS: PULSE 65; TEMP 99.1
[2024-05-29 15:59] VITALS: BP 113/76; RESP 18
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
== END 2024-05-29 17:11 | disposition home or self-care (01) ==
LOC: EC 11:17 → 6NMEDSUR 14:09 → 3SCARD 14:44
PROVIDERS: ADMIT Hospitalist; ATTEND Hospitalist
DX: G40.909 Epilepsy, unspecified, not intractable, without status epilepticus (principal); G43.909 Migraine, unspecified, not intractable, without status migrainosus; R00.1 Bradycardia, unspecified; F17.290 Nicotine dependence, other tobacco product, uncomplicated; Z79.899 Other long term (current) drug therapy; Z91.410 Personal history of adult physical and sexual abuse; Z87.828 Personal history of other (healed) physical injury and trauma; Z87.442 Personal history of urinary calculi; Z71.6 Tobacco abuse counseling; W08.XXXA Fall from other furniture, initial encounter
CPT/HCPCS: 36415; 95816; 80053; 80048; 84443; 83605; 85025; 84146; 80306; 70450; G0378 ×3; G0480; J2060; 80320; 96374; 99285

== ENCOUNTER 2025-04-05 09:15 | Emergency (ER) | payer OTHER ==
[2025-04-05 09:21] VITALS: RESP 18; TEMP 99.4
--- NOTE | 2025-04-05 09:24 | ED ---
General Adult HPI - General Chief complaint: Chest Pain Stated complaint: JANE Time Seen by Provider: 04/05/25 09:20 Source: patient, EMS, RN notes reviewed, old records reviewed Mode of arrival: EMS Limitations: no limitations - History of Present Illness Initial comments: This is a 29-year-old female who presents to the emergency department stating she has a history of pseudoseizures anxiety and POTS. Patient states when she was driving she felt like she was having palpitations and she was having chest pain and some upper back pain. Patient states it lasted about 20 minutes. Per EMS when they arrived patient was breathing superfast and once they calmed her down all the symptoms resolved. On arrival EMS stated her heart rate was 80. Patient states this could be anxiety but A-fib never been quite like this in the past. - Related Data Previous Rx's Medication Instructions Recorded lamoTRIgine [LaMICtal] 25 mg PO BID #140 tab 05/29/24 Allergies Allergy/AdvReac Type Severity Reaction Status Date / Time No Known Allergies Allergy Verified 05/28/24 12:05 Review of Systems ROS Statement: Those systems with pertinent positive or pertinent negative responses have been documented in the HPI. ROS Other: All systems not noted in ROS Statement are negative. Past Medical History Past Medical History: No Reported History Additional Past Medical History / Comment(s): uti/kidney infection years ago(was hospitalized)., recent hospitalization for Gall Bladder problems (Sep 2018), kidney stones History of Any Multi-Drug Resistant Organisms: None Reported Past Surgical History: Cholecystectomy Additional Past Surgical History / Comment(s): . Past Anesthesia/Blood Transfusion Reactions: No Reported Reaction Additional Past Anesthesia/Blood Transfusion Reaction / Comment(s): Has never had anesthesia Past Psychological History: Anxiety Smoking Status: Vaper Past Alcohol Use History: None Reported Past Drug Use History: None Reported - Past Family History Father History Unknown: Yes Family Medical History: No Reported History Mother Family Medical History: No Reported History Additional Family Medical History / Comment(s): gallbladder issues General Exam - General Exam Comments Initial Comments: GENERAL: Patient is well-developed and well-nourished. Patient is nontoxic and well-hydrated and is in no acute distress. ENT: Neck is soft and supple. No significant lymphadenopathy is noted. Oropharynx is clear. Moist mucous membranes. Neck has full range of motion without eliciting any pain. EYES: The sclera were anicteric and conjunctiva were pink and moist. Extraocular move ments were intact and pupils were equal round and reactive to light. Eyelids were unremarkable. PULMONARY: Unlabored respirations. Good breath sounds bilaterally. No audible rales rhonchi or wheezing was noted. CARDIOVASCULAR: There is a regular rate and rhythm without any murmurs gallops or rubs. ABDOMEN: Soft and nontender with normal bowel sounds. SKIN: Skin is clear with no lesions or rashes and otherwise unremarkable. NEUROLOGIC: Patient is alert and oriented x3. Cranial nerves II through XII are grossly intact. Motor and sensory are also intact. Normal speech, volume and content. Symmetrical smile. MUSCULOSKELETAL: Normal extremities with adequate strength and full range of motion. No lower extremity swelling or edema. No calf tenderness. 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 Patient EKG shows no ST segment elevation or depression. Was pt. sent in by a medical professional or institution (, [facility], HAT DESIGNER, urgent care, hospital, or [place] [facility] facility...) When possible be specific @ -No Did you speak to anyone other than the patient for history (EMS, parent, family, police, friend...)? What history was obtained from this source @ -No Did you review nursing and triage notes (agree or disagree)? Why? @ -I reviewed and agree with nursing and triage notes Were old charts reviewed (outside hosp., previous admission, EMS record, old EKG, old radiological studies, urgent care reports/EKG's, [place] [facility] records)? Report findings @ -No old charts were reviewed Differential Diagnosis? @ -Differential Chest Pain: Stable Angina, Unstable Angina, STEMI, NSTEMI Aortic Dissection, Pneumothorax, Musculoskeletal, Esophageal Spasm GERD, Cholecystitis, Pancreatitis, Zoster, this is not meant to be an all-inclusive list. EKG interpreted by me (3pts min.). @ -As above X-rays interpreted by me (1pt min.). @ -Chest x-ray shows no acute Ofirmev CT interpreted by me (1pt min.). @ -CT of the chest shows no pulmonary embolism or aortic aneurysm U/S interpreted by me (1pt. min.). @ -None done What testing was considered but not performed or refused? (CT, X-rays, U/S, labs)? Why? @ -None What meds were considered but not given or refused? Why? @ -None Did you discuss the management of the patient with other professionals (professionals i.e. DrBladimir, PA, HAT DESIGNER, lab, RT, psych nurse, social media editor, sorting livestock worker, teacher, wildlife officer, adult protective caseworker)? Give summary @ -No Was smoking cessation discussed for >3mins.? @ -No Was critical care preformed (if so, how long)? @ -No Were there social determinants of health that impacted care today? How? (Homelessness, low income, unemployed, alcoholism, drug addiction, transportation, low edu. Level, literacy, decrease access to med. care, [facility], rehab)? @ -No Was there de-escalation of care discussed even if they declined (Discuss DNR or withdrawal of care, Hospice)? DNR status @ -No What co-morbidities impacted this encounter? (DM, HTN, Smoking, COPD, CAD, Cancer, CVA, ARF, Chemo, Hep., AIDS, mental health diagnosis, sleep apnea, morbid obesity)? @ -None Was patient admitted / discharged? Hospital course, mention meds given and route, prescriptions, significant lab abnormalities, going to OR and other pertinent info. @ -I went back and reevaluated the patient she was doing considerably better. Undiagnosed new problem with uncertain prognosis? @ -No Drug Therapy requiring intensive monitoring for toxicity (Heparin, Nitro, Insulin, Cardizem)? @ -No Were any procedures done? @ -No Diagnosis/symptom? @ -Atypical chest pain Acute, or Chronic, or Acute on Chronic? @ -Acute Uncomplicated (without systemic symptoms) or Complicated (systemic symptoms)? @ -Complicated Side effects of treatment? @ -No Exacerbation, Progression, or Severe Exacerbation? @ -No Poses a threat to life or bodily function? How? (Chest pain, USA, MA, pneumonia, PE, COPD, DKA, ARF, appy, cholecystitis, CVA, Diverticulitis, Homicidal, Sade cidal, threat to staff... and all critical care pts) @ -No Diagnosis/symptom? @ -Anxiety Acute, or Chronic, or Acute on Chronic? @ -Acute Uncomplicated (without systemic symptoms) or Complicated (systemic symptoms)? @ -Complicated Side effects of treatment? @ -None Exacerbation, Progression, or Severe Exacerbation] @ -No Poses a threat to life or bodily function? @ -No - Lab Data Result diagrams: 04/05/25 09:04/05/25 09:30 Lab Results 04/05/25 04/05/25 04/05/25 Range/Units :26 07: 09:30 WBC 5.54 (4.50-10.00) 10*3/uL RBC 4.42 (4.10-5.20) 10*6/uL Hgb 13.1 (12.0-15.0) g/dL Hct 37.5 (37.2-46.3) % MCV 84.8 (80.0-97.0) fL MCH 29.6 (27.0-32.0) pg MCHC 34.9 (32.0-37.0) g/dL Plt Count 261 (140-440) 10*3/uL MPV 9.8 (9.5-12.2) fL Immature Gran % (Auto) 0.2 % Neutrophils % 66.4 % Lymphocytes % 22.9 % Monocytes % 8.3 % Eosinophils % 1.8 % Basophils % 0.4 % Immature Gran # 0.01 (0.00-0.04) 10*3/uL Neutrophils # 3.68 (1.80-7.70) 10*3/uL Lymphocytes # 1.27 (0.90-5.00) 10*3/uL Monocytes # 0.46 (0.20-1.00) 10*3/uL Eosinophils # 0.10 (0.04-0.35) 10*3/uL Basophils # 0.02 (0.00-0.10) 10*3/uL D-Dimer 0.61 H (<0.60) mg/L FEU Sodium 140 (137-145) mmol/L Potassium 4.3 (3.5-5.1) mmol/L Chloride 109 H (98-107) mmol/L Carbon Dioxide 23 (22-30) mmol/L Anion Gap 8 mmol/L BUN 14 (7-17) mg/dL Creatinine 0.72 (0.52-1.04) mg/dL Est GFR (CKD-EPI)AfAm >90 (>60 ml/min/1.73 sqM) Est GFR (CKD-EPI)NonAf >90 (>60 ml/min/1.73 sqM) Glucose 91 (74-99) mg/dL Calcium 9.6 (8.4-10.2) mg/dL Magnesium 2.0 (1.6-2.3) mg/dL Total Bilirubin 0.6 (0.2-1.3) mg/dL AST 24 (14-36) U/L ALT 26 (4-34) U/L Alkaline Phosphatase 82 (38-126) U/L Troponin I (0.000-0.034) ng/mL Total Protein 7.7 (6.3-8.2) g/dL Albumin 4.7 (3.5-5.0) g/dL 04/05/25 Range/Units 09:30 WBC (4.50-10.00) 10*3/uL RBC (4.10-5.20) 10*6/uL Hgb (12.0-15.0) g/dL Hct (37.2-46.3) % MCV (80.0-97.0) fL MCH (27.0-32.0) pg MCHC (32.0-37.0) g/dL Plt Count (140-440) 10*3/uL MPV (9.5-12.2) fL Immature Gran % (Auto) % Neutrophils % % Lymphocytes % % Monocytes % % Eosinophils % % Basophils % % Immature Gran # (0.00-0.04) 10*3/uL Neutrophils # (1.80-7.70) 10*3/uL Lymphocytes # (0.90-5.00) 10*3/uL Monocytes # (0.20-1.00) 10*3/uL Eosinophils # (0.04-0.35) 10*3/uL Basophils # (0.00-0.10) 10*3/uL D-Dimer (<0.60) mg/L FEU Sodium (137-145) mmol/L Potassium (3.5-5.1) mmol/L Chloride (98-107) mmol/L Carbon Dioxide (22-30) mmol/L Anion Gap mmol/L BUN (7-17) mg/dL Creatinine (0.52-1.04) mg/dL Est GFR (CKD-EPI)AfAm (>60 ml/min/1.73 sqM) Est GFR (CKD-EPI)NonAf (>60 ml/min/1.73 sqM) Glucose (74-99) mg/dL Calcium (8.4-10.2) mg/dL Magnesium (1.6-2.3) mg/dL Total Bilirubin (0.2-1.3) mg/dL AST (14-36) U/L ALT (4-34) U/L Alkaline Phosphatase (38-126) U/L Troponin I <0.012 (0.000-0.034) ng/mL Total Protein (6.3-8.2) g/dL Albumin (3.5-5.0) g/dL Disposition Clinical Impression: Atypical chest pain, Anxiety Disposition: HOME SELF-CARE Instructions (If sedation given, give patient instructions): Chest Pain (ED), Anxiety (ED) Is patient prescribed a controlled substance at d/c from ED?: No Referrals: Freddy Nielson MD [Primary Care Provider] - 1-2 days Time of Disposition: 11:41
[2025-04-05] MEDS: LORazepam 1 MG/0.5 ML VIAL IV STA (09:35)
[2025-04-05 09:41] LABS: Basophils # (A) 0.02 10*3/uL (0.00-0.10); Basophils % (A) 0.4 %; Eosinophils % (A) 1.8 %; HCT 37.5 % (37.2-46.3); HGB 13.1 g/dL (12.0-15.0); Lymphocytes # (A) 1.27 10*3/uL (0.90-5.00); Lymphocytes % (A) 22.9 %; MCH 29.6 pg (27.0-32.0); MCHC 34.9 g/dL (32.0-37.0); MCV 84.8 fL (80.0-97.0); Mean Platelet Volume 9.8 fL (9.5-12.2); Monocytes # (A) 0.46 10*3/uL (0.20-1.00); Monocytes % (A) 8.3 %; Neutrophils # (A) 3.68 10*3/uL (1.80-7.70); Neutrophils % (A) 66.4 %; Platelet Count 261 10*3/uL (140-440); RBC 4.42 10*6/uL (4.10-5.20); RDW 12.1 % (11.5-14.5); WBC 5.54 10*3/uL (4.50-10.00)
[2025-04-05 10:04] LABS: ALT 26 U/L (4-34); AST 24 U/L (14-36); African American GFR (CKD) >90 (>60 ml/min/1.73 sqM); Albumin 4.7 g/dL (3.5-5.0); Alkaline Phosphatase 82 U/L (38-126); Anion Gap 8 mmol/L; Blood Urea Nitrogen 14 mg/dL (7-17); Calcium 9.6 mg/dL (8.4-10.2); Carbon Dioxide 23 mmol/L (22-30); Chloride 109 mmol/L (98-107); Glucose 91 mg/dL (74-99); Non-African American GFR(CKD) >90 (>60 ml/min/1.73 sqM); Potassium 4.3 mmol/L (3.5-5.1); Sodium 140 mmol/L (137-145); Total Bilirubin 0.6 mg/dL (0.2-1.3); Total Protein 7.7 g/dL (6.3-8.2)
--- NOTE | 2025-04-05 10:13 | XR ---
EXAMINATION TYPE: XR chest 2V DATE OF EXAM: 04/05/2025 9:54 AM COMPARISON: 11/17/2021 CLINICAL INDICATION: Female, 29 years old with history of Chest Pain, TECHNIQUE: XR chest 2V view(s) obtained. FINDINGS: The heart size is normal. The pulmonary vasculature is normal. The lungs are clear. IMPRESSION: 1. No acute pulmonary process. [facility], , 04/05/2025 10:10 AM
--- NOTE | 2025-04-05 11:29 | CT ---
EXAMINATION TYPE: CT chest angio for PE CT DLP: 296.8 mGycm, Automated exposure control for dose reduction was used. DATE OF EXAM: 04/05/2025 11:06 AM COMPARISON: Chest radiograph from same day. CLINICAL INDICATION:Female, 29 years old with history of Elevated D-dimer chest pain, back pain; Elev ated D-Dimer TECHNIQUE/CONTRAST: CTA scan of the thorax is performed with IV Contrast, patient injected with 100 ml mL of Isovue 370, pulmonary embolism protocol. MIP images are created and reviewed. FINDINGS: Pulmonary Artery: There is no evidence for a filling defect within the pulmonary vasculature to sugge st acute pulmonary embolism. The pulmonary artery is of normal size. Lungs/Pleura: No evidence of pleural effusion or pneumothorax. Reticular nodular opacities within the right middle lobe (series 406, 59). Few scattered pulmonary nodules with examples including a right upper lobe 4.6 mm pulmonary nodule (series 406, image 51) and a anterior left upper lobe 4.6 mm subpl eural pulmonary nodule (series 406, image 31) and a peripheral left lower lobe 3.5 cm pulmonary nodul e (series 406, image 78). Airway: Large airways are patent. Heart: Size within normal limits. No significant coronary artery calcifications. Vasculature: No evidence of aortic aneurysm. Mediastinum: No mediastinal adenopathy. Enlarged right hilar lymph nodes with largest measuring up to 1.6 cm. Musculoskeletal: No acute osseous abnormalities Soft Tissues: Unremarkable. Lower neck: No significant findings. Upper Abdomen: The gallbladder is not visualized and may be surgically absent. IMPRESSION: 1. No evidence of pulmonary embolism. 2. Reticular nodular opacities within the right middle lobe concerning for pneumonia. 3. Right hilar adenopathy likely reactive to #2. 4. Additional few scattered solid pulmonary nodules measuring less than 5 mm. Doubtful clinical signi ficance in this patient's age. No follow-up recommended. [facility], , 04/05/2025 11:27 AM
[2025-04-05 12:14] VITALS: BP 103/62; PULSE 63
== END 2025-04-05 12:14 | disposition home or self-care (01) ==
LOC: EC 09:15
DX: F41.9 Anxiety disorder, unspecified (principal); R07.89 Other chest pain; F17.290 Nicotine dependence, other tobacco product, uncomplicated
CPT/HCPCS: 36415; 93005; 85379; 80053; 83735; 84484; 85025; 71046; 71275; 99285; 96374; J2060; Q9967